=== PATIENT | female | born 1960 | race Caucasian/White ===

== ENCOUNTER 2021-04-17 13:30 | Inpatient (IN) | payer OTHER, SELFPAY ==
[2021-04-17] VITALS (48 sets, daily range): BP systolic 99–139; BP diastolic 61–86; PULSE 74–105; RESP 14–35; TEMP 37.2–37.7; O2SAT 83–100
--- NOTE | 2021-04-17 15:04 | XRR_ITS ---
PROCEDURE INFORMATION: Exam: XR Chest Exam date and time: 04/17/2021 3:04 PM Age: 60 years old Clinical indication: Shortness of breath; Patient HX: Covid+ w worsening SOB; Additional info: SOB, covid + TECHNIQUE: Imaging protocol: XR of the chest. Views: 1 view. COMPARISON: No relevant prior studies available. FINDINGS: Lungs: Patchy ground-glass opacities in the lung bases and right mid lung. Pleural spaces: Unremarkable. No pleural effusion. No pneumothorax. Heart/Mediastinum: Unremarkable. No cardiomegaly. Bones/joints: Unremarkable. Soft tissues: Elevation of the left diaphragm versus diaphragmatic hernia. Gastrointestinal tract: Prominent gas-filled gastric fundus. XR/XR chest 1V portable [id number] IMPRESSION: 1. Ground-glass opacities are consistent with multilobar pneumonia.
--- NOTE | 2021-04-17 15:20 | NUR.SHIFT ---
Assumed care at 1520.
--- NOTE | 2021-04-17 15:21 | W.ED.COVID ---
HPI - COVID General: Chief Complaint: Shortness of Breath/Dyspnea Stated Complaint: COVID +; NAUSEA Time Seen by Provider: 04/17/21 14:27 Source: patient Mode of arrival: EMS Limitations: no limitations Triage information: Has fever, cough or shortness of breath. Exposure to COVID + person last 14 days History of Present Illness: HPI Narrative: Patient symptoms started 12 days ago with cough, fever, congestion, body aches. She was tested 5 days ago and tested positive for COVID-19. She states that she has continued to feel worse with worsening shortness of breath. Because of these she presents to the emergency department to be evaluated MD complaint: known COVID positive Prior covid testing: yes, results known COVID 19 common symptoms: positive fever(s), chills, cough, dyspnea, fatigue, body aches, headache(s), nasal congestion and nausea; negative vomiting or diarrhea COVID 19 other sytmptoms: positive lethargy; negative chest pain, pleuritic pain, requiring oxygen, requiring more oxygen, respiratory distress, cyanosis, confusion or new neurological complaints Onset (ago): day(s) (12) Severity: moderate Pertinent comorbid conditions: diabetes, hypertension and obesity Treatment prior to arrival: acetaminophen COVID Results: SARS-CoV-2 Antigen (Rapid) Positive (Negative) H 04/17/21 23:50 04/17/21 Review of Systems General: Reports: 10 or more systems reviewed and unremarkable except in HPI and below Const: Reports: fever(s), chills, body aches and fatigue ENMT: Reports: nasal congestion Card: Denies: chest pain Resp: Reports: dyspnea GI: Reports: nausea; Denies: vomiting or diarrhea Neuro: Reports: headache(s); Denies: confusion Physical Exam Const: COMMON NORMALS: no acute distress, average body habitus, patient oriented x3, no limitations, healthy appearing and well nourished GENERAL APPEARANCE: lethargic ORIENTATION/CONSCIOUSNESS: Yes lethargic HENMT: COMMON NORMALS: normocephalic, atraumatic and moist oral mucous membranes HEAD & SCALP: normocephalic and atraumatic Neck/C-Spine: COMMON NORMALS: no meningeal signs and no JVD Resp: COMMON NORMALS: normal respiratory effort, No retractions, No use of accessory muscles, clear to auscultation bilaterally and percussion normal AUSCULTATION: clear to auscultation bilaterally PERCUSSION: percussion normal Cardio: COMMON NORMALS: no JVD, regular rate, regular rhythm, S1 normal heart sound present, S2 normal heart sound present, No gallops present (Cardio), No clicks present (Cardio), No murmurs present (Cardio), No rub (Cardio) and Peripheral pulses 2+ throughout RATE: regular rate RHYTHM: regular rhythm HEART SOUNDS: S1 normal heart sound present and S2 normal heart sound present PERIPHERAL PULSES: Peripheral pulses 2+ throughout GI: COMMON NORMALS: Normal to inspection, nondistended, normoactive bowel sounds present, Soft to palpation, non-tender, No hepatosplenomegaly present, no masses and no bruits PALPATION: Yes Soft to palpation and Yes No hepatosplenomegaly present Extremity: COMMON NORMALS: normal to inspection, full ROM, capillary refill normal, no calf tenderness and no pedal edema Neuro: COMMON NORMALS: patient oriented x3 SENSORIUM/ORIENTATION: Yes lethargic MENINGEAL SIGNS: Yes no meningeal signs Skin: COMMON NORMALS: no rashes or lesions noted, no wounds, turgor normal, no jaundice, no petechiae and no mottling GENERAL SKIN EXAM: no rashes or lesions noted and turgor normal Course Consultations: Consultation #1: Discussed the patient with Dr. Mathews, hospitalist and he kindly accepted the patient to his service. Time: 17:50 Vital Signs: Vital signs: Vital Signs Temperature 98.9 F 04/17/21 23:45 Pulse Rate 88 04/17/21 23:45 Respiratory Rate 26 H 04/17/21 23:45 Blood Pressure 113/61 04/17/21 23:45 Pulse Oximetry 90 04/17/21 23:45 MDM - COVID MDM Narrative: Medical decision making narrative: 60-year-old female patient who presents to the emergency department with fever, body aches, severe shortness of breath, weakness, and several syncopal episodes. She recently tested positive for COVID-19 and evaluation in the emergency department shows she has increased inflammatory markers. She was also hypoxic in the emergency department. She was requiring oxygen supplementation. She is very lethargic and is being admitted to the hospitalist service for further evaluation and management. Medical Records: Attestation: I reviewed the patient's medical records. Lab Data: Attestation: I reviewed the patient's lab results. Labs: Lab Results 04/17/21 04/17/21 04/17/21 Range/Units 15:42 15:42 15:42 WBC 3.6 L (4.0-10.0) 10^3/ uL RBC 4.54 (4.1-5.3) 10^6/u L Hgb 14.2 (11.5-15.3) g/dL Hct 42.6 (37.0-47.0) % MCV 93.8 (81-99) fL MCH 31.3 (28.0-34.0) pg MCHC 33.3 (30.0-36.0) g/dL RDW 12.6 (12.1-15.1) % Plt Count 216 (130-400) 10^3/c mm MPV 9.6 (7.4-10.4) fL Neut % (Auto) 71.1 % Lymph % (Auto) 24.7 % [place] % (Auto) 2.5 % Eos % (Auto) 0.0 % Baso % (Auto) 0.3 % Neut # (Auto) 2.59 (1.8-7.7) 10^3/u L Lymph # (Auto) 0.9 (0.8-4.8) 10^3/u L [place] # (Auto) 0.1 L (0.2-0.9) 10^3/u L Eos # (Auto) 0.0 (0.0-0.8) 10^3/u L Baso # (Auto) 0.0 (0.0-0.1) 10^3/u L Nucleated RBC % (a uto) 0 % Nucleated RBCs # 0.0 /100WBC D-Dimer 0.47 (0-0.59) ug/mIFE U Specimen Type Sample Site ABG pH (7.35-7.45) ABG pCO2 (35-45) mmHg ABG pO2 (80.0-100.0) mmH g ABG HCO3 (22-26) mmol/L ABG Base Excess (-2.0-2.0) mmol/ L [place] Test Hematocrit (37-47) % O2 Delivery Device O2 Liters/Min % FiO2 % Health Services Director ID Sodium 134 L (136-145) mmol/L Potassium 3.7 (3.5-5.1) mmol/L Chloride 94 L (98-107) mmol/L Carbon Dioxide 27 (22-29) mmol/L Anion Gap 16.7 (5-19) BUN 15 (8-23) mg/dL Creatinine 0.8 (0.5-0.9) mg/dL GFR Calculation 72.7 L (90-130) mL/min Glucose 138 H (65-115) mg/dL Calculated Osmolal ity 281 L (285-295) mOsm/k g Lactic Acid (0.5-2.2) mmol/L Calcium 8.2 L (8.5-10.5) mg/dL Ferritin 1250 H (15-150) ng/mL Total Bilirubin 0.3 (0.15-1.2) mg/dL AST 45 H (0-32) U/L ALT 30 (0-33) U/L Alkaline Phosphata se 72 (35-105) IU/L Creatine Kinase 101 (26-192) U/L C-Reactive Protein 53.3 H (0.0-4.9) mg/L Total Protein 7.8 (6.6-8.7) g/dL Albumin 3.7 (3.5-5.2) g/dL Globulin 4.1 (1.3-4.6) g/dL Procalcitonin 0.12 (0-0.5) ng/mL 04/17/21 04/17/21 Range/Units 15:42 17:33 WBC (4.0-10.0) 10^3/ uL RBC (4.1-5.3) 10^6/u L Hgb (11.5-15.3) g/dL Hct (37.0-47.0) % MCV (81-99) fL MCH (28.0-34.0) pg MCHC (30.0-36.0) g/dL RDW (12.1-15.1) % Plt Count (130-400) 10^3/c mm MPV (7.4-10.4) fL Neut % (Auto) % Lymph % (Auto) % [place] % (Auto) % Eos % (Auto) % Baso % (Auto) % Neut # (Auto) (1.8-7.7) 10^3/u L Lymph # (Auto) (0.8-4.8) 10^3/u L [place] # (Auto) (0.2-0.9) 10^3/u L Eos # (Auto) (0.0-0.8) 10^3/u L Baso # (Auto) (0.0-0.1) 10^3/u L Nucleated RBC % (a uto) % Nucleated RBCs # /100WBC D-Dimer (0-0.59) ug/mIFE U Specimen Type Arterial Sample Site Brachial, left ABG pH 7.47 H (7.35-7.45) ABG pCO2 34.6 L (35-45) mmHg ABG pO2 50.9 L (80.0-100.0) mmH g ABG HCO3 25.0 (22-26) mmol/L ABG Base Excess 1.6 (-2.0-2.0) mmol/ L [place] Test N/a Hematocrit 43.3 (37-47) % O2 Delivery Device Nc O2 Liters/Min 2.5 % FiO2 30.0 % Health Services Director ID Amh Sodium (136-145) mmol/L Potassium (3.5-5.1) mmol/L Chloride (98-107) mmol/L Carbon Dioxide (22-29) mmol/L Anion Gap (5-19) BUN (8-23) mg/dL Creatinine (0.5-0.9) mg/dL GFR Calculation (90-130) mL/min Glucose (65-115) mg/dL Calculated Osmolal ity (285-295) mOsm/k g Lactic Acid 2.2 (0.5-2.2) mmol/L Calcium (8.5-10.5) mg/dL Ferritin (15-150) ng/mL Total Bilirubin (0.15-1.2) mg/dL AST (0-32) U/L ALT (0-33) U/L Alkaline Phosphata se (35-105) IU/L Creatine Kinase (26-192) U/L C-Reactive Protein (0.0-4.9) mg/L Total Protein (6.6-8.7) g/dL Albumin (3.5-5.2) g/dL Globulin (1.3-4.6) g/dL Procalcitonin (0-0.5) ng/mL Imaging Data: CXR: Attestation: I personally reviewed and interpreted this imaging study as follows: Radiologist's impression: Abdi [address] [id number] ReportSigned Patient: Bong Arellanoit #: [id number]: 8Acct#:[id number]/Sex: 60 / FADM Date: 04/17/21Loc: ERRoom/Bed:Attending Dr: Ordering Provider/Ordering MD: Ewa Garcia MD, [facility] Date of Service: 04/17/21 Procedure(s): XR chest 1V portable [id number] Accession Number(s): [id number] Report Number: [id number] PROCEDURE INFORMATION: Exam: XR Chest Exam date and time: 04/17/2021 3:04 PM Age: 60 years old Clinical indication: Shortness of breath; Patient HX: Covid+ w worsening SOB; Additional info: SOB, covid + TECHNIQUE: Imaging protocol: XR of the chest. Views: 1 view. COMPARISON: No relevant prior studies available. FINDINGS: Lungs: Patchy ground-glass opacities in the lung bases and right mid lung. Pleural spaces: Unremarkable. No pleural effusion. No pneumothorax. Heart/Mediastinum: Unremarkable. No cardiomegaly. Bones/joints: Unremarkable. Soft tissues: Elevation of the left diaphragm versus diaphragmatic hernia. Gastrointestinal tract: Prominent gas-filled gastric fundus. XR/XR chest 1V portable [id number] IMPRESSION: 1. Ground-glass opacities are consistent with multilobar pneumonia. 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
[2021-04-17 15:49] LABS: Basophils % 0.3 %; Hematocrit 42.6 % (37.0-47.0); Hemoglobin 14.2 g/dL (11.5-15.3); Lymphocytes # 0.9 10^3/uL (0.8-4.8); Lymphocytes % 24.7 %; Mean Corpuscular HGB Conc 33.3 g/dL (30.0-36.0); Mean Corpuscular Hemoglobin 31.3 pg (28.0-34.0); Mean Corpuscular Volume 93.8 fL (81-99); Mean Platelet Volume 9.6 fL (7.4-10.4); Monocytes # 0.1 10^3/uL (0.2-0.9); Monocytes % 2.5 %; Neutrophils # 2.59 10^3/uL (1.8-7.7); Neutrophils % 71.1 %; Nucleated Red Blood Cells % 0 %; Platelet Count 216 10^3/cmm (130-400); Red Blood Count 4.54 10^6/uL (4.1-5.3); Red Cell Distribution Width 12.6 % (12.1-15.1); White Blood Count 3.6 10^3/uL (4.0-10.0)
[2021-04-17 16:02] LABS: D Dimer 0.47 ug/mIFEU (0-0.59)
[2021-04-17 16:10] LABS: Lactic Sepsis W/Reflex 2.2 mmol/L (0.5-2.2)
[2021-04-17 16:11] LABS: Alanine Aminotransferase 30 U/L (0-33); Albumin Level 3.7 g/dL (3.5-5.2); Alkaline Phosphatase 72 IU/L (35-105); Anion Gap 16.7 (5-19); Aspartate Amino Transferase 45 U/L (0-32); Blood Urea Nitrogen 15 mg/dL (8-23); C Reactive Protein 53.3 mg/L (0.0-4.9); Calcium 8.2 mg/dL (8.5-10.5); Carbon Dioxide 27 mmol/L (22-29); Chloride 94 mmol/L (98-107); Creatine Phosphokinase 101 U/L (26-192); Globulin 4.1 g/dL (1.3-4.6); Glomerular Filtration Rate 72.7 mL/min (90-130); Glucose 138 mg/dL (65-115); Osmolality Calculated 281 mOsm/kg (285-295); Potassium 3.7 mmol/L (3.5-5.1); Sodium 134 mmol/L (136-145); Total Bilirubin 0.3 mg/dL (0.15-1.2); Total Protein 7.8 g/dL (6.6-8.7)
[2021-04-17 16:17] LABS: Procalcitonin 0.12 ng/mL (0-0.5)
[2021-04-17 16:23] LABS: Ferritin 1250 ng/mL (15-150)
--- NOTE | 2021-04-17 16:23 | PC.PHAR ---
PT STATES SHE TAKES CARE OF HER OWN MEDICATIONS-PT STATES SHE HASNT TAKEN ANY OF HER MEDS IN 15 DAYS BESIDES ASPIRIN AND TYLENOL-CALLED [facility] THEY STATES THEY HAVENT SENT OUT MEDICATION SINCE SEP 2020 AND IN JUL 2020-PT STATES SHE TAKES THE MEDICATIONS ENTERED-CALLED [facility] STATES THE PT HAS NO ENROLLMENT WITH THEM SO THEY STATE THEY NEVER SENT HER MEDS STATES THEY LOOKED IN THE NATIONAL DATABASE AND DIDNT SEE WHERE SHE HAD ENROLLMENT-NOTES ARE MADE IN THE PHARMACY COMMENTS
[2021-04-17 16:33] LABS: Slide Review Slide Review Perform
[2021-04-17 17:33] LABS: Reflex Lactate Order REFLEX LACTIC ORDERD
[2021-04-17 17:45] LABS: ABG PCO2 34.6 mmHg (35-45); ABG PH Result 7.47 (7.35-7.45); Arterial Blood Gas Hematocrit 43.3 % (37-47); Base Excess ABG 1.6 mmol/L (-2.0-2.0); Blood Gas LPM 2.5 %; Blood Gas Operator Identificat AMH; Blood Gas Sample Site Brachial, left; Blood Gas Sample Type Arterial; Oxygen Device NC; PO2 ABG 50.9 mmHg (80.0-100.0)
[2021-04-17] MEDS: dexamethasone 4 mg/mL INJ 6 MG IVP (18:07)
[2021-04-17] MEDS: remdesivir 200 MG in sodium chloride 0.9% (100 ml) 100 ML 100 MG IV (18:12)
--- NOTE | 2021-04-17 18:40 | P.HP_ITS ---
Providers/Chief Complaint Admitting Physician: Go Mathews MD Chief Complaint: COVID +; NAUSEA History of Present Illness Kayli Arellano is a 60 year old female with past medical history of hypertension, diabetes, obesity , sleep apnea, gout, was admitted with chief complaint of worsening, generalized weakness, , chills, generalized body pain, predominantly back pain, lethargy, nausea, vomiting, cough, shortness of breath, on and off fever at home, she was diagnosed with Covid last , multiple family members are sick with Covid, recently her mother at home because of Covid. Upon arrival in the ER she was worked up for above mentioned complaint. Imaging studies: X-ray chest: Patchy ground-glass opacities in the lung bases and right mid lung. ABG: pH: 7.47, PCO2:34, PO2:50.9 FiO2:30% D-dimer is pending, ferritin:1250, CRP:53.3 , procalcitonin:0. 12 Review of Systems Card: Denies: palpitations Resp: Denies: pain on inspiration GI: Denies: abdominal pain or constipation : Denies: flank pain Musc: Denies: back pain, extremity pain or extremity swelling Neuro: Denies: difficulty walking or confusion Medications/Allergies Home Medications Medication Instructions Recorded Confirmed Last Taken Type allopurinol 100 mg tablet 100 mg PO DAILY 06/27/20 04/17/21 Unknown History aspirin 81 mg tablet,delayed 81 mg PO QAM 06/27/20 04/17/21 04/17/21 History release losartan 25 mg tablet 25 mg PO DAILY 06/27/20 04/17/21 Unknown History acetaminophen [Tylenol Extra 1,000 mg PO Q4H PRN 04/17/21 04/17/21 04/17/21 08:00 History Strength] duloxetine 30 mg PO BID 04/17/21 04/17/21 Unknown History gabapentin 400 mg PO BID 04/17/21 04/17/21 Unknown History metformin 500 mg PO DAILY 04/17/21 04/17/21 Unknown History pramipexole See Rx Instructions .ROUTE .COMPLEX 04/17/21 04/17/21 Unknown History Allergies Allergy/AdvReac Type Severity Reaction Status Date / Time Sulfa (Sulfonamide Allergy rash Verified 04/17/21 16:11 Antibiotics) Vitals/I&O/Wt Last Vital Signs Temp 99.9 F H 04/17/21 14:41 Pulse 80 04/17/21 17:00 Resp 18 04/17/21 17:00 BP 136/86 04/17/21 17:00 Pulse Ox 100 04/17/21 17:00 Physical Exam Const: COMMON NORMALS: patient oriented x3 HENMT: COMMON NORMALS: normocephalic and atraumatic HEAD & SCALP: normocephalic and atraumatic Resp: EFFORT & INSPECTION: Yes symmetric chest movement OTHER: Bilateral coarse breath sounds, bilateral crackles present in both the lung tinoco. Cardio: COMMON NORMALS: regular rate, regular rhythm, S1 normal heart sound present, S2 normal heart sound present, No gallops present (Cardio), No murmurs present (Cardio), No rub (Cardio) and Peripheral pulses 2+ throughout RATE: regular rate RHYTHM: regular rhythm HEART SOUNDS: S1 normal heart sound present and S2 normal heart sound present PERIPHERAL PULSES: Peripheral pulses 2+ throughout GI: COMMON NORMALS: Normal to inspection, nondistended, normoactive bowel sounds present, Soft to palpation, non-tender, No hepatosplenomegaly present and no masses AUSCULTATION: Yes normoactive bowel sounds PALPATION: Yes Soft to palpation and Yes No hepatosplenomegaly present RECTAL EXAM: deferred Extremity: COMMON NORMALS: no clubbing, cyanosis or edema and no pedal edema Neuro: COMMON NORMALS: patient oriented x3 Data : 04/17/21 15:42 04/17/21 15:42 A&P Assessment and plan (1) Pneumonia due to COVID-19 virus: Acute hypoxic respiratory failure secondary to Covid pneumonia empirically covered for possible superimposed bacterial PNA Monitor Xray chest D-dimer : ESR; CRP: Ferittin: Fibrinigen: Procalcitonin : Remdesivir 5 Day course Dexamethasone 6 mg I.V Daily Lovenox 40 mg sc Daily Ceftriaxone 1 gm q24 h daily Azithromycin Advair inhalation Albuterol inhaler Ascorbic acid po Zinc gluconate po Incentive Spirometry flutter valve Supplemental oxygen Status: Acute (2) Hypoxia: Status: Acute (3) Hypertension: Losartan 25 mg p.o. daily Status: Acute (4) Diabetes: Low-dose sliding scale insulin Monitor fingerstick glucose Carbohydrate consistent diet Status: Acute (5) Obesity: Status: Acute (6) Gout: Allopurinol 100 mg p.o. daily Status: Acute (7) Leukopenia: Likely part of viral syndrome. Monitor CBC Status: Acute Additional A&P Information CODE STATUS: Full code DVT prophylaxis: On Lovenox Disposition: Discharge to home Attestations Medical Necessity Statement*: Patient is to be in hospital for management of Covid pneumonia anticipated length of stay greater than 2 midnight. 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
[2021-04-17] MEDS: albuterol 8 gm MDI 2 PUFF INHALATION (21:12)
[2021-04-17] MEDS: enoxaparin 40 mg/0.4 mL Syringe SUBCUT (21:41)
[2021-04-17] MEDS: oxyCODONE-APAP 5-325 mg Tablet 1 TAB PO (21:41)
[2021-04-17] MEDS: cefTRIAXone 1,000 MG in sodium chloride 0.9% (plus) 50 ML 100 MG IV (21:42)
[2021-04-17] MEDS: guaiFENesin-dextromethorphan UDC 10 mL PO (21:42)
[2021-04-17] MEDS: FUROsemide 10 mg/mL SDV 4mL 40 MG IVP (21:43)
[2021-04-17] MEDS: azithromycin 500 MG in sodium chloride 0.9% 250 ML 250 MG IV (21:44)
[2021-04-18] VITALS (61 sets, daily range): BP systolic 97–132; BP diastolic 56–73; PULSE 69–94; RESP 13–33; TEMP 36.5–37.2; O2SAT 86–97
[2021-04-18 00:04] LABS: SARS Covid-2 Antigen Positive (Negative)
[2021-04-18 00:04] LABS: Influenza A by IFA Negative (Negative); Influenza B by IFA Negative (Negative)
[2021-04-18] MEDS: ondansetron 2 mg/ML SDV 2 mL 4 MG IVP ×2 (03:42→18:25)
[2021-04-18] MEDS: aspirin 81 mg EC Tablet PO (04:54)
--- NOTE | 2021-04-18 07:58 | PM.PN ---
Subjective Subjective: Interval history: During the day, the patient was on 6L02. She became confused and took her O2 off, and was down to 79%. Shortly afterwards she required 11 L high flow nasal cannula to increase her O2 sats to 92%. At the time she was seen, she denied any chest pain palpitations, but did endorse that she felt confused and dyspneic. She also endorsed feeling thirsty mild poor p.o. intake, and subsequent nausea whenever she attempted to eat anything. Vitals/I&O/Wt Last Vital Signs Temp 99 F 04/18/21 03:39 Pulse 75 04/18/21 03:39 Resp 24 H 04/18/21 03:39 BP 97/56 04/18/21 03:39 Pulse Ox 91 04/18/21 03:39 04/17/21 04/18/21 04/18/21 22:59 06:59 14:59 Intake Total 150 / 150 310 / 460 Output Total 300 / 300 700 / 1000 Balance -150 / -150 -390 / -540 Physical Exam Const: GENERAL APPEARANCE: disheveled and ill appearing NUTRITIONAL APPEARANCE: overweight ORIENTATION/CONSCIOUSNESS: Yes awake, Yes oriented to person, Yes oriented to place and Yes oriented to time HENMT: COMMON NORMALS: normocephalic, atraumatic, external ears normal and Normal external nose present HEAD & SCALP: normocephalic and atraumatic FACE & SINUS: normal facial exam NOSE: Normal external nose present EXTERNAL EAR: Yes external ears normal MOUTH: Normal oral and palatal mucosa present Eye: COMMON NORMALS: Equal, round and reactive pupils present and conjunctivae normal CONJUNCTIVA: Yes conjunctivae normal PUPIL: Yes Equal, round and reactive pupils present EOM: No EOM abnormal Neck/C-Spine: COMMON NORMALS: Thyroid normal GENERAL: Yes trachea midline, No anterior neck swelling and No lymphadenopathy THYROID: Thyroid normal Resp: EFFORT & INSPECTION: Yes able to speak in complete sentences AUSCULTATION: crackles Laterality: right (RML), no wheezes and diminished lung sounds on the right in the lower lung tinoco (RLL) and on the left (LML & LLL) Cardio: COMMON NORMALS: regular rate and regular rhythm RATE: regular rate RHYTHM: regular rhythm HEART SOUNDS: no click, no gallops, no murmurs and no rubs Extremity: COMMON NORMALS: no clubbing, cyanosis or edema Neuro: SENSORIUM/ORIENTATION: Yes oriented to person, Yes oriented to place and Yes oriented to time CRANIAL NERVES: Yes CN normal except as noted SPEECH: Other neuro speech findings (slow) GAIT: Yes Unable to assess gait SENSORY EXAM: Yes Normal double simultaneous stimulation for sensation MOTOR EXAM: 5/5 motor strength present throughout Psych: SPEECH: Yes slow MOOD & AFFECT: Yes sad Skin: COMMON NORMALS: no rashes or lesions noted GENERAL SKIN EXAM: no rashes or lesions noted Data : 04/18/21 09:30 04/18/21 09:30 A&P Assessment and plan (1) Acute respiratory failure with hypoxia: Status: Acute (2) Pneumonia due to COVID-19 virus: Status: Acute (3) Diabetes: Status: Acute (4) Hypertension: Status: Acute (5) Gout: Status: Acute (6) Obesity: Status: Acute Ms. Arellano is a 60yo woman w/ HTN, non-IDDM2, Gout, who was diagnosed with Covid on 04/14/2021 and presented to the ED on 04/17/2021 with complaints of worsening generalized weakness, chills, myalgias, nausea, vomiting, cough, dyspnea, and intermittent fevers. Per documentation, the patient has multiple family members who were found to be sick with Covid, and her mother at home because of Covid. Her CXR in the ED showed groundglass opacities consistent with multilobar pneumonia. She was admitted for acute hypoxic respiratory failure caused by multilobar viral pneumonia COVID-19 infection. #Acute hypoxic respiratory failure # Multilobar viral pneumonia # COVID-19 infection - Continue Remdesivir, Dexamethasone, Ceftriaxone/Azithromycin, Zinc, Vit D po, famotidine. Monitor inflammatory markers. Titrate O2. #Hyponatremia - Multifactorial: Pre-renal vs SIADH vs diuretics? - F/u urine studies. # non-IDDM2 - Accuchecks ordered. # HTN - held losartan # Gout? - On allopurinol DVT ppx: Lovenox. Attestations Medical Necessity Statement*: The patient requires continuous hospitalization at this time due to acute hypoxic respiratory failure and multilobar pneumonia due to COVID-19 infection and increasing O2 requirements. 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
[2021-04-18] MEDS: albuterol 8 gm MDI 2 PUFF INHALATION (08:09)
[2021-04-18] MEDS: duloxetine 30 mg Capsule PO ×2 (09:43→18:11)
[2021-04-18] MEDS: zinc gluconate 50 mg Tablet PO (09:43)
[2021-04-18] MEDS: cholecalciferol (vitamin D3) 1,000 unit Tablet 2000 UNIT PO (09:44)
[2021-04-18] MEDS: ascorbic acid 500 mg Tablet PO ×2 (09:44→18:11)
[2021-04-18] MEDS: allopurinol 100 mg Tablet PO (09:45)
[2021-04-18] MEDS: famotidine 20 mg Tablet PO ×2 (09:46→18:11)
[2021-04-18] MEDS: gabapentin 400 mg Capsule PO ×2 (09:46→18:11)
[2021-04-18] MEDS: losartan 50 mg Tablet 25 MG PO (09:47)
[2021-04-18 10:08] LABS: Basophils % 0.2 %; Hematocrit 40.2 % (37.0-47.0); Hemoglobin 13.4 g/dL (11.5-15.3); Lymphocytes # 1.4 10^3/uL (0.8-4.8); Lymphocytes % 27.6 %; Mean Corpuscular HGB Conc 33.3 g/dL (30.0-36.0); Mean Corpuscular Hemoglobin 31.5 pg (28.0-34.0); Mean Corpuscular Volume 94.6 fL (81-99); Mean Platelet Volume 9.6 fL (7.4-10.4); Monocytes # 0.2 10^3/uL (0.2-0.9); Monocytes % 3.1 %; Neutrophils # 3.33 10^3/uL (1.8-7.7); Neutrophils % 67.9 %; Nucleated Red Blood Cells % 0 %; Platelet Count 261 10^3/cmm (130-400); Positive M 1; Red Blood Count 4.25 10^6/uL (4.1-5.3); Red Cell Distribution Width 12.7 % (12.1-15.1); White Blood Count 4.9 10^3/uL (4.0-10.0)
[2021-04-18 10:28] LABS: Fibrinogen 537 mg/dL (174-498)
[2021-04-18 10:31] LABS: Slide Review Slide Review Perform
[2021-04-18 10:32] LABS: D Dimer 0.53 ug/mIFEU (0-0.59)
[2021-04-18 10:42] LABS: NT Pro B Type Natriuretic Pept 344 pg/mL (0-125); Procalcitonin 0.28 ng/mL (0-0.5)
--- NOTE | 2021-04-18 10:51 | PC.NURSE ---
Call placed to to give update. Questions answered about medications, care plan, and current O2 requirements. Teach back performed. was very grateful and pleasant. This keno writer / runner contacting CSU inspector assembly now to request that calls from this family member be transferred to primary nurse caring for patient as oppose to patients room due to patients inability to talk for long periods of time. Patient and agree that this is the communication that suites them best at present time. : Lane Daniels [phone].
[2021-04-18 10:55] LABS: Alanine Aminotransferase 30 U/L (0-33); Albumin Level 3.3 g/dL (3.5-5.2); Alkaline Phosphatase 63 IU/L (35-105); Anion Gap 17.7 (5-19); Aspartate Amino Transferase 51 U/L (0-32); Blood Urea Nitrogen 16 mg/dL (8-23); C Reactive Protein 97.8 mg/L (0.0-4.9); Calcium 7.7 mg/dL (8.5-10.5); Carbon Dioxide 25 mmol/L (22-29); Chloride 93 mmol/L (98-107); Globulin 3.9 g/dL (1.3-4.6); Glomerular Filtration Rate 63.4 mL/min (90-130); Glucose 145 mg/dL (65-115); Lactate Dehydrogenase 466 U/L (135-214); Osmolality Calculated 278 mOsm/kg (285-295); Potassium 3.7 mmol/L (3.5-5.1); Sodium 132 mmol/L (136-145); Total Bilirubin 0.2 mg/dL (0.15-1.2); Total Protein 7.2 g/dL (6.6-8.7)
[2021-04-18 11:10] LABS: Ferritin 1403 ng/mL (15-150)
--- NOTE | 2021-04-18 15:22 | PC.NURSE ---
patient received from HARLEEN Clark in CSU at 1500, patient sitting in chair at this time, 11L o2 high flow cannula, call light within reach.
--- NOTE | 2021-04-18 15:32 | PC.NURSE ---
Pt transferred to room 263-1 med-surg from [facility]. Pt A&Ox3, resp even and non-labored no distress noted. O2 at 11 Lpm via nc. Pt had no c/o pain or discomfort at the present time of transfer. Report given to Cayla CANSECO.
[2021-04-18] MEDS: albuterol 8 gm MDI 4 PUFF INHALATION ×2 (15:39→20:33)
[2021-04-18 17:39] LABS: Glucose Point of Care 155 mg/dL (70-110)
[2021-04-18] MEDS: remdesivir 100 MG in sodium chloride 0.9% (100 ml) 100 ML IV (18:12)
[2021-04-18] MEDS: dexamethasone 4 mg/mL INJ 6 MG IVP (18:12)
[2021-04-18 20:32] LABS: Glucose Point of Care 217 mg/dL (70-110)
[2021-04-18 21:24] LABS: Glucose 197 mg/dL (65-115)
[2021-04-18] MEDS: enoxaparin 40 mg/0.4 mL Syringe SUBCUT (23:12)
[2021-04-18] MEDS: cefTRIAXone 1,000 MG in sodium chloride 0.9% (plus) 100 ML 100 MG IV (23:19)
[2021-04-19] VITALS (18 sets, daily range): BP systolic 99–126; BP diastolic 62–77; PULSE 57–69; RESP 16–32; TEMP 36.6–36.7; O2SAT 86–93
[2021-04-19] MEDS: azithromycin 500 MG in sodium chloride 0.9% 250 ML 250 MG IV ×2 (00:49→23:03)
[2021-04-19] MEDS: aspirin 81 mg EC Tablet PO (06:01)
[2021-04-19 06:17] LABS: Glucose Point of Care 198 mg/dL (70-110)
[2021-04-19 07:13] LABS: Basophils % 0.3 %; Fibrinogen 518 mg/dL (174-498); Hematocrit 39.1 % (37.0-47.0); Hemoglobin 13.1 g/dL (11.5-15.3); Lymphocytes # 1.5 10^3/uL (0.8-4.8); Lymphocytes % 25.5 %; Mean Corpuscular HGB Conc 33.5 g/dL (30.0-36.0); Mean Corpuscular Hemoglobin 31.8 pg (28.0-34.0); Mean Corpuscular Volume 94.9 fL (81-99); Mean Platelet Volume 9.2 fL (7.4-10.4); Monocytes # 0.3 10^3/uL (0.2-0.9); Monocytes % 5.2 %; Neutrophils # 3.93 10^3/uL (1.8-7.7); Neutrophils % 68.3 %; Nucleated Red Blood Cells % 0 %; Platelet Count 260 10^3/cmm (130-400); Red Blood Count 4.12 10^6/uL (4.1-5.3); Red Cell Distribution Width 12.6 % (12.1-15.1); White Blood Count 5.8 10^3/uL (4.0-10.0)
[2021-04-19 07:15] LABS: D Dimer 0.72 ug/mIFEU (0-0.59)
[2021-04-19 07:20] LABS: Alanine Aminotransferase 27 U/L (0-33); Alkaline Phosphatase 60 IU/L (35-105); Anion Gap 16.1 (5-19); Aspartate Amino Transferase 52 U/L (0-32); Blood Urea Nitrogen 23 mg/dL (8-23); C Reactive Protein 82.7 mg/L (0.0-4.9); Calcium 7.9 mg/dL (8.5-10.5); Carbon Dioxide 24 mmol/L (22-29); Chloride 93 mmol/L (98-107); Globulin 3.6 g/dL (1.3-4.6); Glomerular Filtration Rate 72.7 mL/min (90-130); Glucose 186 mg/dL (65-115); Osmolality Calculated 277 mOsm/kg (285-295); Potassium 4.1 mmol/L (3.5-5.1); Sodium 129 mmol/L (136-145); Total Bilirubin 0.2 mg/dL (0.15-1.2); Total Protein 6.6 g/dL (6.6-8.7)
[2021-04-19 07:35] LABS: Phosphorus 3.3 mg/dL (2.5-4.5)
[2021-04-19 07:45] LABS: Ferritin 1612 ng/mL (15-150)
[2021-04-19 08:18] LABS: Slide Review Slide Review Perform
[2021-04-19] MEDS: albuterol 8 gm MDI 4 PUFF INHALATION (08:44)
[2021-04-19] MEDS: ascorbic acid 500 mg Tablet PO ×2 (09:40→17:20)
[2021-04-19] MEDS: zinc gluconate 50 mg Tablet PO (09:40)
[2021-04-19] MEDS: famotidine 20 mg Tablet PO ×2 (09:40→17:20)
[2021-04-19] MEDS: allopurinol 100 mg Tablet PO (09:40)
[2021-04-19] MEDS: cholecalciferol (vitamin D3) 1,000 unit Tablet 2000 UNIT PO (09:40)
[2021-04-19] MEDS: gabapentin 400 mg Capsule PO ×2 (09:40→17:20)
[2021-04-19] MEDS: duloxetine 30 mg Capsule PO ×2 (09:40→17:20)
[2021-04-19 11:08] LABS: Glucose Point of Care 160 mg/dL (70-110)
--- NOTE | 2021-04-19 12:31 | PM.PN ---
Subjective Subjective: Interval history: I was called and informed that the patient was hypoxic to the 80s on high flow nasal cannula, so she was switched to heated high flow O2. A CXR and ABG were ordered. Her CXR did not show any changes, but her ABG showed that she remained hypoxic. And per respiratory therapist, she has been around 88 to 89% O2 saturation. At the time patient was seen early in the afternoon, she was alert and oriented to person place and time. She states that she has not been eating or drinking for many days, because she feels nauseous anytime she attempts to eat. She requested for something such as Ensure and something to help her with the nausea prior to eating. She also continues to endorse shortness of breath. She now endorses chest pressure which she states has been going on for several days. She denies palpitations, dizziness, lightheadedness, abdominal pain. She requested for bath and something to comb her hair, because she did not bring her supplies from home, and stated that it might help her feel better Vitals/I&O/Wt Last Vital Signs Temp 98.1 F 04/19/21 11:16 Pulse 62 04/19/21 11:16 Resp 18 04/19/21 11:16 BP 99/66 04/19/21 11:16 Pulse Ox 87 L 04/19/21 11:16 04/18/21 04/19/21 04/19/21 22:59 06:59 14:59 Intake Total 960 / 960 590 / 1550 140 / 140 Output Total 300 / 650 50 / 700 Balance 660 / 310 540 / 850 140 / 140 Physical Exam Const: GENERAL APPEARANCE: disheveled and ill appearing NUTRITIONAL APPEARANCE: overweight ORIENTATION/CONSCIOUSNESS: Yes awake, Yes oriented to person, Yes oriented to place and Yes oriented to time HENMT: COMMON NORMALS: normocephalic, atraumatic, external ears normal and Normal external nose present HEAD & SCALP: normocephalic and atraumatic FACE & SINUS: normal facial exam NOSE: Normal external nose present EXTERNAL EAR: Yes external ears normal MOUTH: Normal oral and palatal mucosa present Eye: COMMON NORMALS: Equal, round and reactive pupils present and conjunctivae normal CONJUNCTIVA: Yes conjunctivae normal PUPIL: Yes Equal, round and reactive pupils present EOM: No EOM abnormal Neck/C-Spine: COMMON NORMALS: Thyroid normal GENERAL: Yes trachea midline, No anterior neck swelling and No lymphadenopathy THYROID: Thyroid normal Resp: EFFORT & INSPECTION: Yes able to speak in complete sentences AUSCULTATION: crackles Laterality: right (RML), no wheezes and diminished lung sounds on the right in the lower lung tinoco (RLL) and on the left (LML & LLL) Cardio: COMMON NORMALS: regular rate and regular rhythm RATE: regular rate RHYTHM: regular rhythm HEART SOUNDS: no click, no gallops, no murmurs and no rubs Extremity: COMMON NORMALS: no clubbing, cyanosis or edema Neuro: SENSORIUM/ORIENTATION: Yes oriented to person, Yes oriented to place and Yes oriented to time CRANIAL NERVES: Yes CN normal except as noted SPEECH: Other neuro speech findings (slow) GAIT: Yes Unable to assess gait SENSORY EXAM: Yes Normal double simultaneous stimulation for sensation MOTOR EXAM: 5/5 motor strength present throughout Psych: SPEECH: Yes slow MOOD & AFFECT: Yes sad Skin: COMMON NORMALS: no rashes or lesions noted GENERAL SKIN EXAM: no rashes or lesions noted Data : 04/19/21 06:52 04/19/21 06:52 A&P Assessment and plan (1) Acute respiratory failure with hypoxia: Status: Acute (2) Pneumonia due to COVID-19 virus: Status: Acute (3) Diabetes: Status: Acute (4) Hypertension: Status: Acute (5) Gout: Status: Acute (6) Obesity: Status: Acute Ms. Arellano is a 60yo woman w/ HTN, non-IDDM2, Gout, who was diagnosed with Covid on 04/14/2021 and presented to the ED on 04/17/2021 with complaints of worsening generalized weakness, chills, myalgias, nausea, vomiting, cough, dyspnea, and intermittent fevers. Per documentation, the patient has multiple family members who were found to be sick with Covid, and her mother at home because of Covid. Her CXR in the ED showed groundglass opacities consistent with multilobar pneumonia. She was admitted for acute hypoxic respiratory failure caused by multilobar viral pneumonia COVID-19 infection. #Acute hypoxic respiratory failure # Multilobar viral pneumonia # COVID-19 infection - Continue Remdesivir, Dexamethasone, Ceftriaxone/Azithromycin, Zinc, Vit D po, famotidine. Monitor inflammatory markers. Titrate O2. - SHe may need to be moved to the ICU and intubated. #Hyponatremia - Multifactorial: Pre-renal vs SIADH vs diuretics given on admission in the setting of poor po intake - F/u urine studies. # non-IDDM2 - Accuchecks ordered. Continue to monitor. # HTN - held losartan # Gout? - On allopurinol, but a low dose. DVT ppx: Lovenox. Additional A&P Information CODE STATUS: Full code DVT prophylaxis: On Lovenox Disposition: Discharge to home Attestations Medical Necessity Statement*: Patient requires continued hospitalization due to acute hypoxic respiratory failure due to COVID-19 infection, multi lobar viral pneumonia, and worsening hyponatremia. Coding Level of Care Code Acute [place] [employer] T[facility] for [facility] Diagnoses Acute respiratory failure with hypoxia J96.01 Pneumonia due to COVID-19 virus U07.1; J12.82 Diabetes E11.9 Hypertension I10 Gout M10.9 Obesity E66.9
--- NOTE | 2021-04-19 12:32 | XRR_ITS ---
PROCEDURE INFORMATION: Exam: XR Chest Exam date and time: 04/19/2021 12:32 PM Age: 60 years old Clinical indication: Shortness of breath; Patient HX: History--covid positive; SOB; Additional info: Acute hypoxic respiratory failure TECHNIQUE: Imaging protocol: XR of the chest. Views: 1 view. COMPARISON: CR (CHEST, ) 04/17/2021 3:40 PM FINDINGS: Lungs: There are diffuse bilateral interstitial pulmonary infiltrates which may be due to an interstitial viral pneumonia. These are similar to previous radiograph. There is elevation of the left hemidiaphragm which is unchanged. Pleural spaces: Unremarkable. No pleural effusion. No pneumothorax. Heart/Mediastinum: Unremarkable. No cardiomegaly. Bones/joints: Unremarkable. XR/XR chest 1V portable [id number] IMPRESSION: Bilateral interstitial pulmonary infiltrates unchanged.
[2021-04-19 13:53] LABS: ABG PCO2 39.5 mmHg (35-45); ABG PH Result 7.44 (7.35-7.45); Alveolar-Arterial Oxygen Gradi 75.6 mmHg (5-10); Arterial Blood Gas Hematocrit 42.1 % (37-47); Base Excess ABG 2.7 mmol/L (-2.0-2.0); Blood Gas Allen Test Pos; Blood Gas Operator Identificat glc; Blood Gas Sample Site Radial, right; Blood Gas Sample Type Arterial; Carboxyhemoglobin 0.5 %THgb (0.4-20.1); HGB O2 Sat 85.9 % (95-100); Ionized Calcium Level - ABG 1.1 mmol/L (1.1-1.4); Methemoglobin 0.2 % (0.4-1.5); Oxygen Device HAG; Oxygen Saturation ABG 86.5; PO2 ABG 49.4 mmHg (80.0-100.0); Potassium Level - ABG 4.1 mmol/L (3.5-5.0); Total Hemoglobin 13.7 g/dL (12-16)
--- NOTE | 2021-04-19 15:44 | PC.NUTR ---
Nutrition consult: Received consult at this time per Dr. Stallworth. Written request for Ensure, will clarify to Glucermaki at this time due to dx DM and Consistent Carb diet order. Full assessment to be completed tomorrow 04/20/21.
[2021-04-19 17:15] LABS: Glucose Point of Care 170 mg/dL (70-110)
[2021-04-19] MEDS: remdesivir 100 MG in sodium chloride 0.9% (100 ml) 100 ML IV (17:17)
[2021-04-19] MEDS: dexamethasone 4 mg/mL INJ 6 MG IVP (17:22)
--- NOTE | 2021-04-19 18:29 | ECG_ITS ---
[facility] ED Test Date: 2021-04-19 Pat Name: Kayli Arellano Department: Room: 263 Gender: Female [employer]ger: : 1960 Requested By: Maria Teresa Velasquez Order Number: [id number] Reading MD: Shelby Haro M.D. Measurements Intervals [place] Rate: 67 P: 58 MT: 132 QRS: 70 QRSD: 97 T: 62 QT: 395 QTc: 419 Interpretive Statements SINUS RHYTHM LOW QRS VOLTAGE IN PRECORDIAL LEADS [QRS DEFLECTION < 1.0 mV IN CHEST LEADS] No previous ECG available for comparison Electronically Signed On 04-20-2021 21:50:41 CDT by Shelby Haro M.D. [email or web address]
--- NOTE | 2021-04-19 20:01 | PC.NURSE ---
REPORT CALLED TO ICU: REPORT CALLED TO JOSE RN IN ICU. PATIENT TO BE MOVED VIA BED WITH ALL BELONGINGS TO ICU BED 9. WAITING FOR ROOM TO BE CLEANED.
[2021-04-19 20:11] LABS: Troponin T (5th) Once 7 ng/L (0-10)
[2021-04-19] MEDS: enoxaparin 40 mg/0.4 mL Syringe SUBCUT (20:47)
[2021-04-19] MEDS: ondansetron 2 mg/ML SDV 2 mL 4 MG IVP (20:53)
--- NOTE | 2021-04-19 20:53 | PC.NURSE ---
TRANSFER: PATIENT TRANSPORTED VIA BED WITH ALL BELONGINGS TO ICU BED 9. PATIENT HANDED OFF TO CY [facility].
[2021-04-19] MEDS: cefTRIAXone 1,000 MG in sodium chloride 0.9% (plus) 100 ML 100 MG IV (22:32)
[2021-04-20] VITALS (60 sets, daily range): BP systolic 88–132; BP diastolic 51–97; PULSE 61–105; RESP 18–54; TEMP 36.6–37.2; O2SAT 77–92
--- NOTE | 2021-04-20 04:19 | PC.NURSE ---
Dr. Melendez notified of RR in the 30s and O2 sat on 100% bipap. Hcp to put in ativan order
[2021-04-20] MEDS: LORazepam 2 mg/mL INJ 1 mL 0.5 MG IVP (04:43)
[2021-04-20 05:28] LABS: Basophils % 0.2 %; Hematocrit 39.2 % (37.0-47.0); Hemoglobin 12.8 g/dL (11.5-15.3); Lymphocytes # 1.3 10^3/uL (0.8-4.8); Lymphocytes % 14.4 %; Mean Corpuscular HGB Conc 32.7 g/dL (30.0-36.0); Mean Corpuscular Hemoglobin 30.9 pg (28.0-34.0); Mean Corpuscular Volume 94.7 fL (81-99); Mean Platelet Volume 9.5 fL (7.4-10.4); Monocytes # 0.3 10^3/uL (0.2-0.9); Monocytes % 3.7 %; Neutrophils % 80.9 %; Nucleated Red Blood Cells % 0 %; Platelet Count 317 10^3/cmm (130-400); Red Blood Count 4.14 10^6/uL (4.1-5.3); Red Cell Distribution Width 12.6 % (12.1-15.1); White Blood Count 9.3 10^3/uL (4.0-10.0)
[2021-04-20] MEDS: aspirin 81 mg EC Tablet PO (05:37)
[2021-04-20 05:42] LABS: Fibrinogen 486 mg/dL (174-498)
[2021-04-20 05:48] LABS: D Dimer 0.76 ug/mIFEU (0-0.59)
[2021-04-20 05:50] LABS: Alanine Aminotransferase 24 U/L (0-33); Albumin Level 2.9 g/dL (3.5-5.2); Alkaline Phosphatase 73 IU/L (35-105); Anion Gap 14.3 (5-19); Aspartate Amino Transferase 48 U/L (0-32); Blood Urea Nitrogen 25 mg/dL (8-23); Carbon Dioxide 27 mmol/L (22-29); Chloride 93 mmol/L (98-107); Globulin 3.8 g/dL (1.3-4.6); Glomerular Filtration Rate 72.7 mL/min (90-130); Glucose 224 mg/dL (65-115); Osmolality Calculated 281 mOsm/kg (285-295); Potassium 4.3 mmol/L (3.5-5.1); Sodium 130 mmol/L (136-145); Total Bilirubin 0.2 mg/dL (0.15-1.2); Total Protein 6.7 g/dL (6.6-8.7)
[2021-04-20 05:53] LABS: Slide Review Slide Review Perform
[2021-04-20 06:05] LABS: Ferritin 1408 ng/mL (15-150)
--- NOTE | 2021-04-20 07:42 | PC.NURSE ---
Report received. Assessment completed. No c/o pain. Bipap in place. 100%FIO2. Pt encouraged to lay on side. AAOx4. Makes needs known. No void at this time. Will monitor
[2021-04-20 07:54] LABS: Glucose Point of Care 187 mg/dL (70-110)
[2021-04-20 07:59] LABS: ABG PCO2 44.1 mmHg (35-45); ABG PH Result 7.42 (7.35-7.45); Alveolar-Arterial Oxygen Gradi 78.5 mmHg (5-10); Arterial Blood Gas Hematocrit 40.8 % (37-47); Base Excess ABG 3.7 mmol/L (-2.0-2.0); Blood Gas Allen Test Pos; Blood Gas Sample Site Radial, right; Blood Gas Sample Type Arterial; Carboxyhemoglobin 0.5 %THgb (0.4-20.1); HCO3 ABG 28.7 mmol/L (22-26); HGB O2 Sat 89.3 % (95-100); Ionized Calcium Level - ABG 1.2 mmol/L (1.1-1.4); Methemoglobin 0.8 % (0.4-1.5); Oxygen Device BIPAP; Oxygen Saturation ABG 90.5; PO2 ABG 58.4 mmHg (80.0-100.0); Potassium Level - ABG 4.1 mmol/L (3.5-5.0); Total Hemoglobin 13.3 g/dL (12-16)
--- NOTE | 2021-04-20 08:20 | XR_ITS ---
WS: [id number] Portable AP upright chest, 04/20/2021 Clinical Data: Respiratory failure Comparison: Portable chest, 04/19/2021 Findings: There is no change in the diffuse bilateral pulmonary opacities. There is elevation left di aphragm unchanged. The heart size is probably enlarged. Monitor leads are on the chest wall. XR/XR chest 1V portable [id number] Impression: No change in bilateral pulmonary opacities.
[2021-04-20] MEDS: sodium chloride 0.9% 1,000 ML 75 ML IV (08:23)
[2021-04-20 09:00] LABS: Magnesium 2.1 mg/dL (1.7-2.3); Phosphorus 3.5 mg/dL (2.5-4.5)
--- NOTE | 2021-04-20 09:23 | PC.CHAP ---
Pastoral Care Encounter/Spiritual Assessment Type of Contact [] Declined assurance specialist visit [] Patient/Family/Request visit [] Outpatient visit [] Follow-up visit [] Physician referral [] Code/Alert [x] Routine visit [] Staff referral [] Actively dying [] Patient sleeping [] Family support [] [] Out of room [] Palliative care [] [] Receiving care in room [] Pre-surgical visit [] Trauma [] Long length of stay [x] ICU visit [x] Other: ventilator Relational/Emotional Strength [] Patient feels connected with others/family/visitors/staff [] Distress [] Loneliness/isolation [] Abandonment Spirituality of Patient [] Person of Sandra [] Attends Voodoo of their Sandra [] Believes in Prayer [] Reads Bible or Latter Day materials [] There are Spiritual issues to be addressed Coverstitch Binder Interventions [x] Prayer [] Active listening [] Non-anxious presence [] Spiritual/emotional support [] Crisis/trauma care [] Spiritual counseling [] Bereavement support [] Provided bereavement packet [] Provided Bible/devotional materials [] Provided toy/stuffed animal, coloring book to patient or family member [] Provided Communion [] Anointing/Lester [] Salvation [x] Completed spiritual assessment [] Other: Impact on Illness or Injury [] Angry [] Fearful [] Anxious [] Often cries [] Exhaustion [] Unable to work [] Unable to attend rastafari [] Unable to walk/stand [] Unable to read [] Unable to drive [] Unable to eat/drink [] Unable to sleep [] Unable to be with family [] Patient intubated [] Other: Summary Time spent with patient
[2021-04-20 10:15] LABS: Add Urine Microscopic? NO; Charge for UA Resulting for Rev
[2021-04-20 10:18] LABS: Urine Random Sodium < 10 mmol/L
[2021-04-20 10:24] LABS: Bilirubin Urine Neg (Negative); Blood Urine Neg (Negative); Glucose Urine UA Trace (Normal); Ketones Urine 1+ (Negative); Leukocyte Esterase Urine Negative (Negative); Nitrate Urine Negative (Negative); Protein Urine 3+ (Negative); Urine Appearance Clear (CLEAR); Urine Color Yellow (Yellow); Urobilinogen Urine Norm (Negative); pH Urine 5 (5-7)
--- NOTE | 2021-04-20 10:50 | PC.NUTR ---
Nutrition consult completed at this time. No further changes warranted. Glucerna was added yesterday per this RD. Noted meals being held today due to respiratory status, per nursing. Recommend obtain current weight when possible as it is missing from EMR. Recommend to encourage po intakes of meals/supplements when safe to do so. See RD assessment for further details.
[2021-04-20 11:07] LABS: Glucose Point of Care 158 mg/dL (70-110)
[2021-04-20] MEDS: ondansetron 2 mg/ML SDV 2 mL 4 MG IVP (13:16)
--- NOTE | 2021-04-20 13:33 | PC.NURSE ---
Spoke at length with via phone. Update given. Care plan reviewed and questions answered. informed team of patient's sister passing away at another facility due to covid. requests patient not be made aware of this occurrence. denies further questions at present time. Patient still looking favorable for intubation but is not agreeable to intubation at present time.
[2021-04-20 15:14] LABS: ABG PCO2 48.9 mmHg (35-45); ABG PH Result 7.39 (7.35-7.45); Alveolar-Arterial Oxygen Gradi 78.5 mmHg (5-10); Arterial Blood Gas Hematocrit 41.9 % (37-47); Base Excess ABG 3.5 mmol/L (-2.0-2.0); Blood Gas Allen Test Pos; Blood Gas Operator Identificat BD; Blood Gas Sample Site Brachial, left; Blood Gas Sample Type Arterial; Carboxyhemoglobin 0.7 %THgb (0.4-20.1); HCO3 ABG 29.4 mmol/L (22-26); HGB O2 Sat 85.4 % (95-100); Ionized Calcium Level - ABG 1.1 mmol/L (1.1-1.4); Methemoglobin 0.7 % (0.4-1.5); Oxygen Device BIPAP; Oxygen Saturation ABG 86.6; PO2 ABG 53.3 mmHg (80.0-100.0); Total Hemoglobin 13.7 g/dL (12-16)
[2021-04-20 15:53] LABS: Osmolality Serum 286 mOsm/kg (278-305)
--- NOTE | 2021-04-20 16:06 | XRR_ITS ---
PROCEDURE INFORMATION: Exam: XR Chest Exam date and time: 04/20/2021 4:06 PM Age: 60 years old Clinical indication: Device placement; Other: Central line/ett/ng; Additional info: Et tube/ng tube placement TECHNIQUE: Imaging protocol: XR of the chest. Views: 1 view. COMPARISON: CR XR chest 1V portable [id number] 04/20/2021 8:23 AM FINDINGS: Tubes, catheters and devices: Right central venous catheter tip at the atrial caval junction. 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 Endotracheal tube tip in place 3.8 cm above the smiley. Lungs: Increased bilateral mixed interstitial and airspace infiltrates. Pleural spaces: Unremarkable. No pleural effusion. No pneumothorax. Heart/Mediastinum: Unremarkable. No cardiomegaly. Bones/joints: Unremarkable. XR/XR chest 1V portable [id number] IMPRESSION: 1. Right central venous catheter tip at the atrial caval junction. 2. 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 3. Endotracheal tube tip in place 3.8 cm above the smiley. 4. Increased bilateral mixed interstitial and airspace infiltrates.
[2021-04-20] MEDS: cisatracurium 2 mg/mL SDV 10mL 10.3 MG IV (16:17)
[2021-04-20] MEDS: propofol 1,000 MG/100 ML INJ 12.41 MG IV (16:21)
[2021-04-20] MEDS: midazolam 1 mg/mL INJ 2 mL 2 MG (16:22)
[2021-04-20] MEDS: midazolam 1 mg/mL INJ 5 ML 2 MG IV (16:42)
[2021-04-20] MEDS: remdesivir 100 MG in sodium chloride 0.9% (100 ml) 100 ML IV (17:29)
[2021-04-20] MEDS: gabapentin 400 mg Capsule PO (17:43)
[2021-04-20] MEDS: duloxetine 30 mg Capsule PO (17:43)
[2021-04-20] MEDS: famotidine 20 mg Tablet PO (17:43)
[2021-04-20] MEDS: dexamethasone 4 mg/mL INJ 6 MG IVP (17:43)
[2021-04-20] MEDS: ascorbic acid 500 mg Tablet PO (17:43)
[2021-04-20 17:58] LABS: ABG PCO2 55.8 mmHg (35-45); ABG PH Result 7.33 (7.35-7.45); Alveolar-Arterial Oxygen Gradi 75.2 mmHg (5-10); Arterial Blood Gas Hematocrit 39.6 % (37-47); Base Excess ABG 2.5 mmol/L (-2.0-2.0); Blood Gas Allen Test Pos; Blood Gas Operator Identificat BD; Blood Gas Sample Site Brachial, left; Blood Gas Sample Type Arterial; Carboxyhemoglobin 0.6 %THgb (0.4-20.1); HCO3 ABG 29.6 mmol/L (22-26); Ionized Calcium Level - ABG 1.1 mmol/L (1.1-1.4); Methemoglobin 0.8 % (0.4-1.5); Oxygen Device VENT; Oxygen Saturation ABG 92.3; PO2 ABG 69.6 mmHg (80.0-100.0); Potassium Level - ABG 4.3 mmol/L (3.5-5.0); Total Hemoglobin 12.9 g/dL (12-16)
--- NOTE | 2021-04-20 18:06 | PC.NURSE ---
1556 Md at bedside. Pt gave verbal ok for intubation. Versed 2mg given. 1557 20mg etomidate given. 1600 20mg propofol given per MD. 1605 10.3mg nimbex given IVP 1620 60mg propofol given per MD. PT intubated at 1627 with 8.0 ETT, 23cm at lip. Vent settings per RT. OGT placed per nurse resident without difficulty. R IJ CVL placed at approximately 1700, CXR to verify placement of ETT, OGT and CVL. Ok given to use line. Pt on fentanyl gtt at 200mcg/min, propofol gtt at 40mcg/kg/min, versed gtt at 8mg/min. Bilateral wrist restraints placed per MD order. Blount draining clear adwoa urine to BSD.
--- NOTE | 2021-04-20 18:21 | P.PN_ITS ---
Subjective Subjective: Interval history: Overnight, early in the evening of 04/19/2021, patient remained increasingly hypoxic on maximal settings of her heated high flow, so she was transferred down to the ICU where she was placed on BiPAP. Patient remained hypoxic to the 80s. She was and oriented to person place and time. When the idea of intubation as the next step was brought up, she resisted the idea. Attempts were made to have her prone or lie on her side, but she still remained hypoxic. Spoke with her , regarding her wishes, and her , wanted her to make the decision, even though he is a next of kin. I spoke with the patient again but over conference call in her room with her on the phone line, and she finally agreed to be intubated. She was intubated by me around 5 PM, and a right IJ central line was placed by me. Also prior into the intubation, a Blount catheter was placed. Vitals/I&O/Wt Last Vital Signs Temp 98.8 F 04/20/21 18:00 Pulse 71 04/20/21 18:00 Resp 19 H 04/20/21 18:00 BP 99/67 04/20/21 18:00 Pulse Ox 90 04/20/21 18:00 04/20/21 04/20/21 04/20/21 06:59 14:59 22:59 Intake Total 1086.315 / 1086.315 Output Total 650 / 650 Balance -20 / 220 -650 / -650 1086.315 / 436.315 Weight last 48 hrs Weight 103.419 kg Physical Exam Const: GENERAL APPEARANCE: disheveled and ill appearing NUTRITIONAL APPEARANCE: overweight ORIENTATION/CONSCIOUSNESS: Yes awake, Yes oriented to person, Yes oriented to place and Yes oriented to time HENMT: COMMON NORMALS: normocephalic, atraumatic, external ears normal and Normal external nose present HEAD & SCALP: normocephalic and atraumatic FACE & SINUS: normal facial exam NOSE: Normal external nose present EXTERNAL EAR: Yes external ears normal MOUTH: Normal oral and palatal mucosa present Eye: COMMON NORMALS: Equal, round and reactive pupils present and conjunctivae normal CONJUNCTIVA: Yes conjunctivae normal PUPIL: Yes Equal, round and reactive pupils present EOM: No EOM abnormal Neck/C-Spine: COMMON NORMALS: Thyroid normal GENERAL: Yes trachea midline, No anterior neck swelling and No lymphadenopathy THYROID: Thyroid normal Resp: EFFORT & INSPECTION: Yes able to speak in complete sentences AUSCULTATION: crackles Laterality: right (RML), no wheezes and diminished lung sounds on the right in the lower lung tinoco (RLL) and on the left (LML & LLL) Cardio: COMMON NORMALS: regular rate and regular rhythm RATE: regular rate RHYTHM: regular rhythm HEART SOUNDS: no click, no gallops, no murmurs and no rubs Extremity: COMMON NORMALS: no clubbing, cyanosis or edema Neuro: SENSORIUM/ORIENTATION: Yes oriented to person, Yes oriented to place and Yes oriented to time CRANIAL NERVES: Yes CN normal except as noted SPEECH: Other neuro speech findings (slow) GAIT: Yes Unable to assess gait SENSORY EXAM: Yes Normal double simultaneous stimulation for sensation MOTOR EXAM: 5/5 motor strength present throughout Psych: SPEECH: Yes slow MOOD & AFFECT: Yes sad Skin: COMMON NORMALS: no rashes or lesions noted GENERAL SKIN EXAM: no rashes or lesions noted Urinary Catheter Management^: Blount: Cath Placed During This Visit: yes Reason for Continuing Indwelling Catheter: Accurate Measurement of Urinary Output in Critically Ill Patients Urinary Catheter Date of Insertion: 04/20/21 Urinary Catheter Time of Insertion: 08:45 Data : 04/20/21 04:52 04/20/21 04:52 A&P Assessment and plan (1) Acute respiratory failure with hypoxia: Status: Acute (2) Pneumonia due to COVID-19 virus: Status: Acute (3) Diabetes: Status: Acute (4) Hypertension: Status: Acute (5) Gout: Status: Acute (6) Obesity: Status: Acute Ms. Arellano is a 60yo woman w/ HTN, non-IDDM2, Gout, who was diagnosed with Covid on 04/14/2021 and presented to the ED on 04/17/2021 with complaints of worsening generalized weakness, chills, myalgias, nausea, vomiting, cough, dyspnea, and intermittent fevers. Per documentation, the patient has multiple family members who were found to be sick with Covid, and her mother at home because of Covid. Her CXR in the ED showed groundglass opacities consistent w ith multilobar pneumonia. She was admitted for acute hypoxic respiratory failure caused by multilobar viral pneumonia COVID-19 infection. Neuro/Psych - On Propfol, Fentanyl, Versed drip & wrist restraints. CV # HTN: Held Losartan Resp #Acute hypoxic respiratory failure # Multilobar viral pneumonia # COVID-19 infection - S/p Remdesivi. Continue Dexamethasone, Ceftriaxone/Azithromycin, Zinc, Vit D po, famotidine. Gave a dose of Tocilizumab - Monitor inflammatory markers. Titrate O2. GI - Consult Nutrition for tube feeds. - On famotidine for GI ppx Renal #Hyponatremia - Multifactorial: Pre-renal vs SIADH vs diuretics given on admission in the setting of poor po intake - F/u urine studies. Endo # non-IDDM2 - Accuchecks ordered AC/HS. Continue to monitor. Started insulin glargine 10 units nightly with medium dose sliding scale insulin. MSK # Gout? - On allopurinol, but a low dose. Heme - No acute issues DVT ppx: Lovenox. Additional A&P Information CODE STATUS: Full code DVT prophylaxis: On Lovenox Disposition: Discharge to home Attestations Medical Necessity Statement*: Patient requires continuous hospitalization, because she is now intubated and sedated. Critical Care Time: Over 90 minutes of critical care time was spent in direct care of this patient. Critical Care Time (min): 90 Coding Level of Care Code Acute Physicist [place] for [facility] Diagnoses Acute respiratory failure with hypoxia J96.01 Pneumonia due to COVID-19 virus U07.1; J12.82 Diabetes E11.9 Hypertension I10 Gout M10.9 Obesity E66.9
[2021-04-20 18:26] LABS: Glucose Point of Care 195 mg/dL (70-110)
--- NOTE | 2021-04-20 19:36 | PC.NURSE ---
ASSUMING CARE Patient resting in bed on mechanical ventilation, VC-AC, 23 cm at lip, 8.0, FiO2 100%, TV 400, PEEP 12, Rate 18. Fentanyl is running at 200 mcg/hour, propofol at 40 mcg/kg/min, and versed at 8 mg/hour. Blount catheter in place and draining. Orogastric tube in place. Right internal jugular CVL in place with blood return. Dr. Smart on unit checking on patients status, states that she gave orders to turn sedation medications up to achieve adequate sedation. Gave verbal order that versed max can be increased up to 10 mg/hour and fentanyl up to 150 mcg/hour if needed. Order to slowly start weening fentanyl down to 150 mcg/hour per patient response.
[2021-04-20] MEDS: insulin glargine 100 units/1 mL 10 UNIT SUBCUT (20:33)
[2021-04-20] MEDS: enoxaparin 40 mg/0.4 mL Syringe SUBCUT (20:40)
[2021-04-20] MEDS: propofol 1,000 MG/100 ML INJ 24.82 MG IV (20:57)
[2021-04-20] MEDS: cefTRIAXone 1,000 MG in sodium chloride 0.9% (plus) 100 ML 100 MG IV (23:29)
[2021-04-21] VITALS (110 sets, daily range): BP systolic 84–124; BP diastolic 51–76; PULSE 47–70; RESP 18–22; TEMP 36.2–36.8; O2SAT 87–95
[2021-04-21] MEDS: azithromycin 500 MG in sodium chloride 0.9% 250 ML 250 MG IV (00:27)
[2021-04-21] MEDS: propofol 1,000 MG/100 ML INJ 18.62 MG IV (00:59)
[2021-04-21] MEDS: sodium chloride 0.9% 1,000 ML 75 ML IV (03:44)
[2021-04-21 03:58] LABS: ABG PCO2 47.7 mmHg (35-45); ABG PH Result 7.38 (7.35-7.45); Arterial Blood Gas Hematocrit 48.6 % (37-47); Base Excess ABG 2.1 mmol/L (-2.0-2.0); Blood Gas Allen Test Pos; Blood Gas Operator Identificat JB; Blood Gas Sample Site Radial, right; Blood Gas Sample Type Arterial; HCO3 ABG 28.1 mmol/L (22-26); Oxygen Device VENT
--- NOTE | 2021-04-21 04:30 | PC.NURSE ---
BRADYCARDIA Patients heart rate has slowly decreased throughout the night from 60s to mid 50s. Normotensive with no other symptoms. Sedation medications decreased throughout the night because of this issue. Will continue to monitor.
[2021-04-21 05:13] LABS: Basophils % 0.3 %; Hematocrit 35.7 % (37.0-47.0); Hemoglobin 11.7 g/dL (11.5-15.3); Lymphocytes # 1.1 10^3/uL (0.8-4.8); Lymphocytes % 9.9 %; Mean Corpuscular HGB Conc 32.8 g/dL (30.0-36.0); Mean Corpuscular Hemoglobin 31.1 pg (28.0-34.0); Mean Corpuscular Volume 94.9 fL (81-99); Mean Platelet Volume 9.8 fL (7.4-10.4); Monocytes # 0.3 10^3/uL (0.2-0.9); Monocytes % 2.8 %; Neutrophils # 9.11 10^3/uL (1.8-7.7); Neutrophils % 85.2 %; Nucleated Red Blood Cells % 0 %; Platelet Count 367 10^3/cmm (130-400); Red Blood Count 3.76 10^6/uL (4.1-5.3); Red Cell Distribution Width 12.6 % (12.1-15.1); White Blood Count 10.7 10^3/uL (4.0-10.0)
[2021-04-21] MEDS: aspirin 81 mg EC Tablet PO (05:19)
[2021-04-21] MEDS: propofol 1,000 MG/100 ML INJ 15.51 MG IV (05:19)
[2021-04-21 05:39] LABS: Alanine Aminotransferase 19 U/L (0-33); Albumin Level 2.6 g/dL (3.5-5.2); Alkaline Phosphatase 75 IU/L (35-105); Anion Gap 14.6 (5-19); Aspartate Amino Transferase 34 U/L (0-32); Blood Urea Nitrogen 26 mg/dL (8-23); Calcium 7.5 mg/dL (8.5-10.5); Carbon Dioxide 27 mmol/L (22-29); Chloride 98 mmol/L (98-107); Globulin 3.4 g/dL (1.3-4.6); Glomerular Filtration Rate 63.4 mL/min (90-130); Glucose 206 mg/dL (65-115); Magnesium 2.2 mg/dL (1.7-2.3); Osmolality Calculated 291 mOsm/kg (285-295); Potassium 4.6 mmol/L (3.5-5.1); Sodium 135 mmol/L (136-145); Total Bilirubin 0.2 mg/dL (0.15-1.2)
[2021-04-21 06:02] LABS: Slide Review Slide Review Perform
--- NOTE | 2021-04-21 06:35 | PC.NURSE ---
SHIFT SUMMARY No change to ventilator settings with the exception of FiO2 from 100% to 90%. Patient has tolerated well with no turns or suctioning. When suctioned or repositioned patients oxygen decreases to the 70s. 500 mL urine output. See previous bradycardia note.
--- NOTE | 2021-04-21 07:18 | PC.NURSE ---
Report received. Pt resting in bed. No s/s of pain or SOB noted. ETT at 23cm, Vt 400, RR 18, peep 12, fio2 90%. OGT in place. R IJ CVL in place. Fentanyl at 100mcg/hr, propofol at 25mcg/kg/min, and versed at 4mg/min. Lung sounds CTA with diminished bases. Blount cath in place draining clear adwoa urine to BSD. Will monitor.
--- NOTE | 2021-04-21 07:58 | P.PN_ITS ---
Subjective Subjective: Interval history: The patient remains intubated and sedated. Her IVF ran overnight, and it was discontinued this morning, such that she only received a total of 1.5L. The big challenge for the day is that she is bradycardic down to the 40s. She is on Propofol, Fentanyl and Midazolam. Medications: Reviewed: Yes Vitals/I&O/Wt Last Vital Signs Temp 97.6 F 04/21/21 03:45 Pulse 53 L 04/21/21 06:30 Resp 18 04/21/21 06:30 BP 97/65 04/21/21 06:30 Pulse Ox 91 04/21/21 06:30 04/20/21 04/21/21 04/21/21 22:59 06:59 14:59 Intake Total 1337.583 / 6891.775 9323.776 / 2471.359 Output Total 500 / 1150 Balance 1337.583 / 687.583 633.776 / 1321.359 Weight last 48 hrs Weight 103.963 kg Weight 103.419 kg Physical Exam Const: GENERAL APPEARANCE: disheveled and ill appearing NUTRITIONAL APPEARANCE: overweight ORIENTATION/CONSCIOUSNESS: Yes awake, Yes oriented to person, Yes oriented to place and Yes oriented to time HENMT: COMMON NORMALS: normocephalic, atraumatic, external ears normal and Normal external nose present HEAD & SCALP: normocephalic and atraumatic FACE & SINUS: normal facial exam NOSE: Normal external nose present EXTERNAL EAR: Yes external ears normal MOUTH: Normal oral and palatal mucosa present Eye: COMMON NORMALS: Equal, round and reactive pupils present and conjunctivae normal CONJUNCTIVA: Yes conjunctivae normal PUPIL: Yes Equal, round and reactive pupils present EOM: No EOM abnormal Neck/C-Spine: COMMON NORMALS: Thyroid normal GENERAL: Yes trachea midline, No anterior neck swelling and No lymphadenopathy THYROID: Thyroid normal Resp: EFFORT & INSPECTION: Yes able to speak in complete sentences AUSCULTATION: crackles Laterality: right (RML), no wheezes and diminished lung sounds on the right in the lower lung tinoco (RLL) and on the left (LML & LLL) Cardio: COMMON NORMALS: regular rate and regular rhythm RATE: regular rate RHYTHM: regular rhythm HEART SOUNDS: no click, no gallops, no murmurs and no rubs Extremity: COMMON NORMALS: no clubbing, cyanosis or edema Neuro: SENSORIUM/ORIENTATION: Yes oriented to person, Yes oriented to place and Yes oriented to time CRANIAL NERVES: Yes CN normal except as noted SPEECH: Other neuro speech findings (slow) GAIT: Yes Unable to assess gait SENSORY EXAM: Yes Normal double simultaneous stimulation for sensation MOTOR EXAM: 5/5 motor strength present throughout Psych: SPEECH: Yes slow MOOD & AFFECT: Yes sad Skin: COMMON NORMALS: no rashes or lesions noted GENERAL SKIN EXAM: no rashes or lesions noted Urinary Catheter Management^: Blount: Cath Placed During This Visit: yes Reason for Continuing Indwelling Catheter: Accurate Measurement of Urinary Output in Critically Ill Patients Urinary Catheter Date of Insertion: 04/20/21 Urinary Catheter Time of Insertion: 08:45 Data : 04/22/21 05:55 04/22/21 05:55 A&P Assessment and plan (1) Acute respiratory failure with hypoxia: Status: Acute (2) Pneumonia due to COVID-19 virus: Status: Acute (3) Diabetes: Status: Acute Qualifiers: Diabetes mellitus type: type 2 Diabetes mellitus [facility] insulin use: unspecified [facility] use status Diabetes mellitus complication status: with other specified complication Qualified Code(s): E11.69 - Type 2 diabetes mellitus with other specified complication (4) Hypertension: Status: Acute Qualifiers: Hypertension type: unspecified Qualified Code(s): I10 - Essential (primary) hypertension (5) Gout: Status: Acute Qualifiers: Gout site: unspecified site Gout etiology: unspecified cause Chronicity: unspecified Qualified Code(s): M10.9 - Gout, unspecified (6) Obesity: Status: Acute Qualifiers: Obesity type: unspecified obesity type Obesity classification: adult class 2 (BMI 35 - 39.9) Serious obesity comorbidity presence: unspecified whether serious comorbidity present Body mass index: BMI 39.0-39.9 Qualified Code(s): E66.9 - Obesity, unspecified; Z68.39 - Body mass index [BMI] 39.0-39.9, adult Ms. Arellano is a 60yo woman w/ HTN, non-IDDM2, Gout, who was diagnosed with Covid on 04/14/2021 and presented to the ED on 04/17/2021 with complaints of worsening generalized weakness, chills, myalgias, nausea, vomiting, cough, dyspnea, and intermittent fevers. Per documentation, the patient has multiple family members who were found to be sick with Covid, and her mother at home because of Covid. Her CXR in the ED showed groundglass opacities consistent with multilobar pneumonia. She was admitted for acute hypoxic respiratory failure caused by multilobar viral pneumonia COVID-19 infection. Neuro/Psych - On Propfol, Fentanyl, Versed drip & wrist restraints. CV # HTN: Held Losartan Resp #Acute hypoxic/hypercapneic respiratory failure # Multilobar viral pneumonia # COVID-19 infection - S/p Remdesivi. Continue Dexamethasone, Ceftriaxone/Azithromycin, Zinc, Vit D po, famotidine. Gave a dose of Tocilizumab on 04/21/2021. - Monitor inflammatory markers. Titrate O2. GI - Consult Nutrition for tube feeds. - On famotidine for GI ppx Renal #Hyponatremia - Likely hypovolemia - Multifactorial: Pre-renal vs SIADH vs diuretics given on admission in the setting of poor po intake Endo # non-IDDM2 - Accuchecks ordered AC/HS. Continue to monitor. Started insulin glargine 10 units nightly with medium dose sliding scale insulin. MSK # Gout? - On allopurinol, but a low dose. Heme - No acute issues DVT ppx: Lovenox. Additional A&P Information CODE STATUS: Full code DVT prophylaxis: On Lovenox Disposition: Discharge to home Attestations Medical Necessity Statement*: Patient requires continued hospitalization, because she is intubated and sedated for her acute hypoxic and hypercapnic respiratory failure due to COVID-19 pneumonia Coding Level of Care Code Acute Graphics Edit Technician for [facility] Diagnoses Acute respiratory failure with hypoxia J96.01 Pneumonia due to COVID-19 virus U07.1; J12.82 Diabetes E11.69 Diabetes mellitus type: type 2 Diabetes mellitus [facility] insulin use: unspecified [facility] insulin use status Diabetes mellitus complication status: with other specified complication Hypertension I10 Hypertension type: unspecified Gout M10.9 Gout site: unspecified site Gout etiology: unspecified cause Chronicity: unspecified Obesity E66.9; Z68.39 Obesity type: unspecified obesity type Obesity classification: adult class 2 (BMI 35 - 39.9) Serious obesity comorbidity presence: unspecified whether serious best rbidity present Body mass index: BMI 39.0-39.9
[2021-04-21] MEDS: gabapentin 400 mg Capsule PO ×2 (08:09→16:53)
[2021-04-21] MEDS: ascorbic acid 500 mg Tablet PO ×2 (08:09→16:53)
[2021-04-21] MEDS: duloxetine 30 mg Capsule PO ×2 (08:10→16:53)
[2021-04-21] MEDS: zinc gluconate 50 mg Tablet PO (08:10)
[2021-04-21] MEDS: famotidine 20 mg Tablet PO ×2 (08:10→16:53)
[2021-04-21] MEDS: cholecalciferol (vitamin D3) 1,000 unit Tablet 2000 UNIT PO (08:11)
[2021-04-21] MEDS: allopurinol 100 mg Tablet PO (08:11)
--- NOTE | 2021-04-21 08:14 | PM.ACPR ---
Procedure/Consent Time out: Time Out Performed: Yes Consent: Consent for Procedure: Consent obtained from patient, Consent obtained from other (indicate) () and Agrees to proceed with procedure (Patient and agreed) Procedure Narrative: A time out was performed. My hands were washed immediately prior to the procedure. I wore a surgical cap, mask with protective eyewear, gown and gloves throughout the procedure. The patient was placed on a equipment mechanic specialist including continuous pulse oximetry. Rapid Sequence Intubation was conducted. The patient received Etomidate 20mg, Versed 2mg, Propofol 60mg, Fentanyl 100mcg for induction and Nimbex 10mg for adequate paralysis. Cricoid pressure was maintained from time induction agent was given to time of cuff balloon inflation. Using a 3m Tray laryngoscope initially, then a Co-captain airline pilot fiber optic video scope, and a size 8cm endotracheal tube with stylet, the patient was intubated on the 2nd attempt. The stylet was removed and cuff balloon was inflated. Appropriate endotracheal tube position was confirmed by direct visualization of vocal cord passage, fogging of the tube, CO2 colometric indicator and symmetric breath sounds. The tube was secured at 22 cm at the lips. Post intubation chest x-ray confirmed placement. THIS PROCEDURE WAS DONE ON 04/20/2021 Acute Procedures Epistaxis Control: Time out performed: Yes Intubation: Time out performed: Yes Sedative: other (Etomidate 20mg, Versed 2mg, Propofol 60mg, Fentanyl 100mcg) Paralytic: other (Nimbex 10mg) Laryngoscope: other (Initial attempt w/ Tray. Success was w/ Co-captain airline pilot fiber optic video scope.) ET tube size: 8 ET tube uncuffed: Yes Tube secured depth (cm): 24 Tube secured location: lips Tube placement confirmation: visualized tube passing through cords, equal breath sounds bilaterally, confirmation by capnometry and color change noted Patient tolerated procedure: well Intubation complications: none
--- NOTE | 2021-04-21 08:18 | XR_ITS ---
WS: [id number] Portable AP upright chest, 04/21/2021 Clinical Data: hypoxic respiratory failure Comparison: Portable chest, 04/20/2021 Findings: The bilateral pulmonary opacities have diminished slightly. The right internal jugular veno us catheter, nasogastric tube, and endotracheal tube remain in the same position. The heart size is t he same. The left diaphragm is elevated. Monitor leads are on the chest wall. XR/XR chest 1V portable 64103 Impression: 1. Slight decrease in bilateral pulmonary opacities. 2. No change in position of multiple tubes.
--- NOTE | 2021-04-21 08:27 | P.PCN_ITS ---
Procedure/Consent Time out: Time Out Performed: Yes Consent: Consent for Procedure: Consent obtained from patient, Consent obtained from other (indicate) (), Risks & Benefits reviewed and Agrees to proceed with procedure Procedure Narrative: My hands were washed immediately prior to the procedure. I wore a surgical cap, mask with protective eyewear, full gown and sterile gloves throughout the procedure. The patient was placed in Trendelenburg position. The RIGHT chest region was prepped using chlorhexidine scrub and draped in sterile fashion using a full drape and sterile probe cover and sterile gel employed. The medial and lateral heads of the sternocleidomastoid muscle were identified as was the carotid pulse. The Internal Jugular vein was identified using the ultrasound. Anesthesia was achieved over the vein using 1% lidocaine. Using real-time out of plane guidance, the introducer needle was inserted into the Internal Jugular vein under direct ultrasound visualization. Venous blood was withdrawn. The syringe was removed and a guidewire was advanced into the introducer needle. The guidewire was visualized in the Internal Jugular Vein by ultrasound. A small incision was made at the skin surface with a scalpel and the introducer needle was exchanged for a dilator over the guidewire. After appropriate dilation was obtained, the dilator was exchanged over the wire for a central venous catheter. The wire was removed and the catheter was sutured in place. A sterile sorbaview shield was placed over the catheter at the insertion site. The patient tolerated the procedure without any hemodynamic compromise. At time of procedure completion, all ports aspirated and flushed properly. Post- procedure chest x-ray is pending at this time. Estimated blood loss is 2cc. THIS PROCEDURE WAS DONE BY HOUSTON DANG MD was completed at Approximately 17:45pm on 04/20/2021. Acute Procedures Epistaxis Control: Time out performed: Yes
[2021-04-21 09:12] LABS: Glucose Point of Care 227 mg/dL (70-110)
[2021-04-21 09:15] LABS: C Reactive Protein 99.7 mg/L (0.0-4.9); Lactate Dehydrogenase 807 U/L (135-214)
--- NOTE | 2021-04-21 09:18 | PC.CHAP ---
Pastoral Care Encounter/Spiritual Assessment Type of Contact [] Declined vegetable grower visit [] Patient/Family/Request visit [] Outpatient visit [] Follow-up visit [] Physician referral [] Code/Alert [x] Routine visit [] Staff referral [] Actively dying [] Patient sleeping [] Family support [] [] Out of room [] Palliative care [] [] Receiving care in room [] Pre-surgical visit [] Trauma [] Long length of stay [x] ICU visit [x] Other: ventilator Relational/Emotional Strength [] Patient feels connected with others/family/visitors/staff [] Distress [] Loneliness/isolation [] Abandonment Spirituality of Patient [] Person of Sandra [] Attends Sabianist of their Sandra [] Believes in Prayer [] Reads Bible or Anabaptist materials [] There are Spiritual issues to be addressed Computer Systems Security Administrator Interventions [x] Prayer [] Active listening [] Non-anxious presence [] Spiritual/emotional support [] Crisis/trauma care [] Spiritual counseling [] Bereavement support [] Provided bereavement packet [] Provided Bible/devotional materials [] Provided toy/stuffed animal, coloring book to patient or family member [] Provided Communion [] Anointing/[place] [] Salvation [x] Completed spiritual assessment [] Other: Impact on Illness or Injury [] Angry [] Fearful [] Anxious [] Often cries [] Exhaustion [] Unable to work [] Unable to attend religious [] Unable to walk/stand [] Unable to read [] Unable to drive [] Unable to eat/drink [] Unable to sleep [] Unable to be with family [] Patient intubated [] Other: Summary Time spent with patient
[2021-04-21 09:22] LABS: Procalcitonin 0.11 ng/mL (0-0.5)
[2021-04-21 09:28] LABS: Ferritin 1150 ng/mL (15-150)
--- NOTE | 2021-04-21 09:41 | PC.NUTR ---
Tube feeding consult: On vent, Tmax 37.1, Ve 6.6. Estimated needs: 1620 kcal (per [facility] 2009), 66-76 g protein (1.2-1.4 g/kg IBW), 1 ml/kcal fluid Recommend Glucerna 1.2, starting at 10 ml/hr and increasing by 10 ml/hr q 6 hours to goal of 40 ml/hr. Recommend Beneprotein, 1.5 tbsp (7g) via tube TID, mixed with 100 ml H2O each time. Recommend additional 150 ml H2O flushes q 6 hours. TF at goal with Beneprotein and H2O flushes to provide 1227 kcal, 76 g protein, 1673 ml H20. Additional 409 kcal from propofol noted. Recommend to decrease/stop NS as tube feeding increases.TF and flushes to be adjusted pending changes in vent status, tolerance, and other fluid provision. See RD assessment for further details.
[2021-04-21 10:09] LABS: Glucose Point of Care 211 mg/dL (70-110)
--- NOTE | 2021-04-21 10:13 | PC.NURSE ---
Tube feedings started per orders. Pt remains bradycardic, adjusting sedation as needed in attempt to correct. repositioned, oral care performed q2h and PRN. Will monitor.
--- NOTE | 2021-04-21 10:56 | ECG_ITS ---
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 Measurements Intervals [place] Rate: 56 P: 57 IL: 128 QRS: 58 QRSD: 106 T: 55 QT: 470 QTc: 456 Interpretive Statements SINUS BRADYCARDIA LOW QRS VOLTAGE IN PRECORDIAL LEADS [QRS DEFLECTION < 1.0 mV IN CHEST LEADS] Compared to ECG 04/19/2021 19:40:10 Sinus rhythm no longer present Electronically Signed On 04-21-2021 23:48:42 CDT by Beny Alvarez M.D. [email or web address]
[2021-04-21] MEDS: ipratropium-albuterol 3 mL Neb INHALATION ×5 (11:13→23:15)
[2021-04-21 12:01] LABS: Glucose Point of Care 188 mg/dL (70-110)
[2021-04-21 12:24] LABS: D Dimer 0.87 ug/mIFEU (0-0.59)
[2021-04-21] MEDS: propofol 1,000 MG/100 ML INJ 9.31 MG IV (12:29)
[2021-04-21 12:30] LABS: Troponin(5th) Baseline 8 ng/L (0-10)
[2021-04-21] MEDS: FUROsemide 10 mg/mL SDV 2mL 20 MG IVP (15:08)
--- NOTE | 2021-04-21 15:17 | PM.CONSULT ---
Providers/Reason For Consult Consulting Physician/Specialty*: Judah Dowling MD / Pulmonary Critical Care Reason for Consult*: Acute hypoxemic respiratory failure secondary to ARDS due to COVID-19 pneumonia Requesting Physician: Maria Teresa Velasquez MD Attending Physician: Maria Teresa Velasquez MD History of Present Illness History of Present Illness Kayli Arellano is a 60 year old female with PMH hypertension, diabetes, obesity, sleep apnea, gout admitted with chief complaint of worsening generalized weakness associated with chills, generalized body pain, lethargy, nausea, vomiting, cough, shortness of breath and on and off fever at home. She was diagnosed with Covid 04/14/2021, multiple family members are sick with Covid, recently her mother at home because of Covid, 1 sister due to Covid in a hospital in [place], another sister is currently being treated here in the same ICU for COVID-19 pneumonia hypoxic respiratory failure. During admission initial chest x-ray showed patchy groundglass opacities in the lung bases and right midlung. ABG on FiO2 30% showed 7.4 50. CRP was 53 and procalcitonin 0.12. She was admitted to ICU for close monitoring on 6 L nasal cannula. Started on Sunday remdesivir protocol, dexamethasone 6 mg daily, Rocephin and azithromycin for antibiotic coverage, incentive spirometry, flutter valve and albuterol and Advair inhalation. Patient is receiving losartan 25 mg p.o. daily for hypertension and allopurinol 100 mg p.o. daily for gout. She was started on low-dose sliding scale for diabetes. Also started on Lovenox 40 mg for DVT prophylaxis. Later on I was asked course of the next 3 days of hospitalization her oxygen requirements steadily kept increasing and she was saturating mid 80s even on BiPAP 100%. Failed to respond to proning and after discussing with her she was intubated on 04/20/2021. Patient was given a dose of Tocilizumab post intubation. Pulmonary critical care consulted for acute hypoxic respiratory failure secondary to ARDS due to COVID-19 pneumonia Today patient seen at bedside Intubated and sedated with propofol 15, fentanyl 50, Versed 4 Saturating 94% on PEEP of 12 and FiO2 85% and CMV mode with RR 18 and tidal volume 400; plateau pressures 35 peak pressure 36 Labs and imaging reviewed and pertinent findings incorporated in assessment and plan Review of Systems General: Reports: ROS unobtainable due to endotracheal tube, ROS unobtainable due to medical condition and ROS unobtainable due to mental status Meds/Allergies Home Medications and Allergies Home Medications Medication Instructions Recorded Confirmed Last Taken Type allopurinol 100 mg tablet 100 mg PO DAILY 06/27/20 04/17/21 Unknown History aspirin 81 mg tablet,delayed 81 mg PO QAM 06/27/20 04/17/21 04/17/21 History release losartan 25 mg tablet 25 mg PO DAILY 06/27/20 04/17/21 Unknown History acetaminophen [Tylenol Extra 1,000 mg PO Q4H PRN 04/17/21 04/17/21 04/17/21 08:00 History Strength] duloxetine 30 mg PO BID 04/17/21 04/17/21 Unknown History gabapentin 400 mg PO BID 04/17/21 04/17/21 Unknown History metformin 500 mg PO DAILY 04/17/21 04/17/21 Unknown History pramipexole See Rx Instructions .ROUTE .COMPLEX 04/17/21 04/17/21 Unknown History Allergies Allergy/AdvReac Type Severity Reaction Status Date / Time Sulfa (Sulfonamide Allergy rash Verified 04/17/21 16:11 Antibiotics) Current Medications Current Medications Generic Name Dose Route Start Last Admin Trade Name Freq PRN Reason Stop Dose Admin Albuterol/Ipratropium 3 ml 04/21/21 12:00 04/21/21 15:15 Ipratropium-Albuterol 3 Ml Neb INHALATION 3 ml Q4H.RESPIRATORY ALEX Administration Allopurinol 100 mg 04/18/21 09:00 04/21/21 08:11 Allopurinol 100 Mg Tablet PO 100 mg DAILY ALEX Administration Ascorbic Acid 500 mg 04/18/21 09:00 04/21/21 08:09 Ascorbic Acid 500 Mg Tablet PO 500 mg BID ALEX Administration Aspirin 81 mg 04/18/21 06:00 04/21/21 05:19 Aspirin 81 Mg Ec Tablet PO 81 mg QAM ALEX Administration Dexamethasone 6 mg 04/18/21 18:45 04/20/21 17:43 Dexamethasone 4 Mg/Ml Inj IVP 6 mg Q24H ALEX Administration Duloxetine HCl 30 mg 04/18/21 09:00 04/21/21 08:10 Duloxetine 30 Mg Capsule PO 30 mg BID ALEX Administration Enoxaparin Sodium 40 mg 04/18/21 21:45 04/20/21 20:40 Enoxaparin 40 Mg/0.4 Ml Syringe SUBCUT 40 mg Q24H ALEX Administration Famotidine 20 mg 04/18/21 09:00 04/21/21 08:10 Famotidine 20 Mg Tablet PO 20 mg BID ALEX Administration Gabapentin 400 mg 04/18/21 09:00 04/21/21 08:09 Gabapentin 400 Mg Capsule PO 400 mg BID ALEX Administration Guaifenesin/Dextromethorphan 10 ml 04/17/21 19:55 04/17/21 21:42 Guaifenesin-Dextromethorphan Udc 10 Ml PO 10 ml Q4H PRN Administration COUGH Remdesivir 100 mg/ Sodium 100 mls @ 100 mls/hr 04/18/21 18:00 04/20/21 18:31 Chloride IV 04/21/21 18:59 Infused Q24H ALEX Infusion Azithromycin 500 mg/ Sodium 250 mls @ 250 mls/hr 04/17/21 19:55 04/21/21 01:38 Chloride IV Infused Q24H ALEX Infusion Protocol Ceftriaxone Sodium 1,000 mg/ 100 mls @ 100 mls/hr 04/18/21 23:00 04/21/21 00:29 Sodium Chloride IV Infused Q24H ALEX Infusion Protocol Propofol 1,000 mg in 100 mls @ 0 mls/hr 04/20/21 13:45 04/21/21 12:29 Diprivan IV 15 mcg/kg/min .Q0M ALEX 9.31 mls/hr Administration Protocol Per Protocol Fentanyl 1,000 mcg/ Sodium 100 mls @ 0 mls/hr 04/20/21 13:45 04/21/21 10:00 Chloride IV 50 mcg/hr .Q0M ALEX 5 mls/hr Titration Protocol Per Protocol Midazolam HCl 100 mg/ Sodium 100 mls @ 0 mls/hr 04/20/21 16:45 04/21/21 14:50 Chloride IV 3 mg/hr .Q0M ALEX 3 mls/hr Titration Protocol Per Protocol Insulin Aspart 0 unit 04/20/21 21:00 04/20/21 20:33 Insulin Aspart 100 Unit/1 Ml SUBCUT 4 unit BEDTIME ALEX Administration Protocol Insulin Aspart 0 unit 04/21/21 08:00 04/21/21 12:04 Insulin Aspart 100 Unit/1 Ml SUBCUT 6 unit TIDWM ALEX Administration Protocol Insulin Glargine 10 unit 04/20/21 21:00 04/20/21 20:33 Insulin Glargine 100 Units/1 Ml SUBCUT 10 unit BEDTIME ALEX Administration Lorazepam 0.5 mg 04/20/21 04:22 04/20/21 04:43 Lorazepam 2 Mg/Ml Inj 1 Ml IVP 0.5 mg Q4H PRN Administration ANXIETY Ondansetron HCl 4 mg 04/18/21 11:48 04/20/21 13:16 Ondansetron 2 Mg/Ml Sdv 2 Ml IVP 4 mg Q4H PRN Administration NAUSEA Oxycodone/Acetaminophen 1 tab 04/17/21 19:55 04/17/21 21:41 Oxycodone-Apap 5-325 Mg Tablet PO 1 tab Q4H PRN Administration SEVERE PAIN Fluticasone/Salmeterol 1 puff 04/17/21 20:00 04/21/21 07:57 Fluticasone-Salmeterol 250-50 Diskus INHALATION Not Given BID.RESPIRATORY ALEX Vitamin D 2,000 unit 04/18/21 09:00 04/21/21 08:11 Cholecalciferol (Vitamin D3) 1,000 Unit Tablet PO 2,000 unit DAILY ALEX Administration Zinc Gluconate 50 mg 04/18/21 09:00 04/21/21 08:10 Zinc Gluconate 50 Mg Tablet PO 50 mg DAILY ALEX Administration Vitals/I&O/Wt Last Vital Signs Temp 98.1 F 04/21/21 12:00 Pulse 56 L 04/21/21 15:15 Resp 18 04/21/21 15:15 BP 104/65 04/21/21 14:00 Pulse Ox 93 04/21/21 15:15 04/21/21 04/21/21 04/21/21 06:59 14:59 22:59 Intake Total 1133.776 / 2471.359 706.820 / 706.820 Output Total 500 / 1150 Balance 633.776 / 1321.359 706.820 / 706.820 Weight last 48 hrs Weight 229 lb 3.2 oz Weight 228 lb Physical Exam Narrative: EXAM NARRATIVE: PHYSICAL EXAM: General: lying in bed, sedated and intubated. HEENT:NCAT, PERRLA, EOMI Neck: Supple Lungs: Mild diffuse crackles bilaterally, good air entry Heart: s1/s2, RRR Abd: soft, NT, ND, BS + Normoactive Extremities: No edema THREAD CLIPPER: sedated and limited THREAD CLIPPER exam possible. SKIN: no rash LDA: # CVC: Right IJ placed 04/20/2021 # Blount: 04/20/2021 Urinary Catheter Management^: Blount: Cath Placed During This Visit: yes Reason for Continuing Indwelling Catheter: Accurate Measurement of Urinary Output in Critically Ill Patients Urinary Catheter Date of Insertion: 04/20/21 Urinary Catheter Time of Insertion: 08:45 Data Labs: Other Labs: Laboratory Results WBC 10.7 10^3/uL (4.0 -10.0) H 04/21/21 04:37 RBC 3.76 10^6/uL (4.1 -5.3) L 04/21/21 04:37 Hgb 11.7 g/dL (11.5-1 5.3) 04/21/21 04:37 Hct 35.7 % (37.0-47.0 ) L 04/21/21 04:37 MCV 94.9 fL (81-99) 04/21/21 04:37 MCH 31.1 pg (28.0-34. 0) 04/21/21 04:37 MCHC 32.8 g/dL (30.0-3 6.0) 04/21/21 04:37 RDW 12.6 % (12.1-15.1 ) 04/21/21 04:37 Plt Count 367 10^3/cmm (130 -400) 04/21/21 04:37 MPV 9.8 fL (7.4-10.4) 04/21/21 04:37 Neut % (Auto) 85.2 % 04/21/21 04:37 Lymph % (Auto) 9.9 % 04/21/21 04:37 Haakon % (Auto) 2.8 % 04/21/21 04:37 Eos % (Auto) 0.0 % 04/21/21 04:37 Baso % (Auto) 0.3 % 04/21/21 04:37 Neut # (Auto) 9.11 10^3/uL (1.8 -7.7) H 04/21/21 04:37 Lymph # (Auto) 1.1 10^3/uL (0.8- 4.8) 04/21/21 04:37 Haakon # (Auto) 0.3 10^3/uL (0.2- 0.9) 04/21/21 04:37 Eos # (Auto) 0.0 10^3/uL (0.0- 0.8) 04/21/21 04:37 Baso # (Auto) 0.0 10^3/uL (0.0- 0.1) 04/21/21 04:37 Nucleated RBC % (a uto) 0 % 04/21/21 04:37 Nucleated RBCs # 0.0 /100WBC 04/21/21 04:37 Fibrinogen 486 mg/dL (174-49 8) 04/20/21 04:52 D-Dimer 0.87 ug/mIFEU (0- 0.59) H 04/21/21 11:45 Specimen Type Arterial 04/21/21 03:44 Sample Site Radial, right 04/21/21 03:44 ABG pH 7.38 (7.35-7.45) 04/21/21 03:44 ABG pCO2 47.7 mmHg (35-45) H 04/21/21 03:44 ABG pO2 71.0 mmHg (80.0-1 00.0) L 04/21/21 03:44 ABG HCO3 28.1 mmol/L (22-2 6) H 04/21/21 03:44 ABG O2 Saturation 92.3 04/20/21 17:48 ABG Base Excess 2.1 mmol/L (-2.0- 2.0) H 04/21/21 03:44 Morro Test Pos 04/21/21 03:44 A-a O2 Gradient 75.2 mmHg (5-10) H 04/20/21 17:48 Hematocrit 48.6 % (37-47) H 04/21/21 03:44 Hgb O2 Saturation 91.0 % (95-100) L 04/20/21 17:48 Carboxyhemoglobin 0.6 %THgb (0.4-20 .1) 04/20/21 17:48 Methemoglobin 0.8 % (0.4-1.5) 04/20/21 17:48 Total Hemoglobin 12.9 g/dL (12-16) 04/20/21 17:48 Sodium 134.0 mmol/L (131 -143) 04/20/21 17:48 Potassium 4.3 mmol/L (3.5-5 .0) 04/20/21 17:48 Glucose 212.0 mg/dL (70-1 15) H 04/20/21 17:48 Ionized Calcium 1.1 mmol/L (1.1-1 .4) 04/20/21 17:48 O2 Delivery Device Vent 04/21/21 03:44 O2 Liters/Min 60.0 % 04/19/21 13:41 FiO2 90.0 % 04/21/21 03:44 Tidal Volume 0.40 04/21/21 03:44 PEEP 12.0 cmH20 04/21/21 03:44 [employer] Att[employer] ID Rob 04/21/21 03:44 Sodium 135 mmol/L (136-1 45) L 04/21/21 04:37 Potassium 4.6 mmol/L (3.5-5 .1) 04/21/21 04:37 Chloride 98 mmol/L (98-107 ) 04/21/21 04:37 Carbon Dioxide 27 mmol/L (22-29) 04/21/21 04:37 Anion Gap 14.6 (5-19) 04/21/21 04:37 BUN 26 mg/dL (8-23) H 04/21/21 04:37 Creatinine 0.9 mg/dL (0.5-0. 9) 04/21/21 04:37 GFR Calculation 63.4 mL/min (90-1 30) L 04/21/21 04:37 Glucose 206 mg/dL (65-115 ) H 04/21/21 04:37 POC Glucose 188 mg/dL (70-110 ) H 04/21/21 11:55 Serum Osmolality 286 mOsm/kg (278- 305) 04/19/21 06:52 Calculated Osmolal ity 291 mOsm/kg (285- 295) 04/21/21 04:37 Lactic Acid 2.2 mmol/L (0.5-2 .2) 04/17/21 15:42 Lactic Acid (Sepsi s) 1.0 mmol/L (0.5-2 .2) 04/17/21 19:15 Calcium 7.5 mg/dL (8.5-10 .5) L 04/21/21 04:37 Phosphorus 3.0 mg/dL (2.5-4. 5) 04/21/21 04:37 Magnesium 2.2 mg/dL (1.7-2. 3) 04/21/21 04:37 Ferritin 1150 ng/mL (15-15 0) H 04/21/21 04:37 Total Bilirubin 0.2 mg/dL (0.15-1 .2) 04/21/21 04:37 AST 34 U/L (0-32) H 04/21/21 04:37 ALT 19 U/L (0-33) 04/21/21 04:37 Alkaline Phosphata se 75 IU/L (35-105) 04/21/21 04:37 Lactate Dehydrogen ase 807 U/L (135-214) H 04/21/21 04:37 Creatine Kinase 101 U/L (26-192) 04/17/21 15:42 Troponin T Gen 5 n g/L 7 ng/L (0-10) 04/19/21 06:52 Troponin T Baselin e 8 ng/L (0-10) 04/21/21 11:45 Troponin T 120 Min [place] 7.68 ng/L (0-10) 04/21/21 14:27 Delta Troponin T -0.32 ABS# (0-10) L 04/21/21 14:27 C-Reactive Protein 99.7 mg/L (0.0-4. 9) H 04/21/21 04:37 NT-Pro-B Natriuret Pep 344 pg/mL (0-125) H 04/18/21 09:30 Total Protein 6.0 g/dL (6.6-8.7 ) L 04/21/21 04:37 Albumin 2.6 g/dL (3.5-5.2 ) L 04/21/21 04:37 Globulin 3.4 g/dL (1.3-4.6 ) 04/21/21 04:37 Procalcitonin 0.11 ng/mL (0-0.5 ) 04/21/21 04:37 Urine Color Yellow (Yellow) 04/20/21 08:45 Urine Appearance Clear (CLEAR) 04/20/21 08:45 Urine pH 5 (5-7) 04/20/21 08:45 Ur Specific Gravit y 1.020 (1.005-1.0 30) 04/20/21 08:45 Urine Protein 3+ (Negative) H 04/20/21 08:45 Urine Glucose (UA) Trace (Normal) H 04/20/21 08:45 Urine Ketones 1+ (Negative) H 04/20/21 08:45 Urine Blood Neg (Negative) 04/20/21 08:45 Urine Nitrate Negative (Negati ve) 04/20/21 08:45 Urine Bilirubin Neg (Negative) 04/20/21 08:45 Urine Urobilinogen Norm mg/dL (Negat chapito) 04/20/21 08:45 Ur Leukocyte Mariya ase Negative (Negati ve) 04/20/21 08:45 Ur Random Sodium < 10 mmol/L 04/20/21 08:45 Influenza Type A A g Negative (Negati ve) 04/17/21 23:22 Influenza Type B A g Negative (Negati ve) 04/17/21 23:22 SARS-CoV-2 Ag (Rap id) Positive (Negati ve) H 04/17/21 23:50 Impressions Chest X-Ray 04/21/21 08:18 Impression: 1. Slight decrease in bilateral pulmonary opacities. 2. No change in position of multiple tubes. Micro: Micro: Microbiology 04/21/21 08:55 MRSA Culture - Fin al Nose 04/21/21 11:45 Blood Culture - Pr eliminary Blood SPECIMEN [facility] 04/21/21 11:48 Blood Culture - Pr eliminary Blood SPECIMEN [facility] [place] A&P Assessment and plan (1) Acute respiratory failure with hypoxia: Status: Acute (2) Pneumonia due to COVID-19 virus: Status: Acute (3) Acute respiratory distress syndrome (ARDS) due to 2019 novel coronavirus: Status: Acute (4) Obesity: Status: Acute (5) Gout: Status: Acute (6) Diabetes: Status: Acute (7) Hypertension: Status: Acute #Acute hypoxic respiratory failure secondary to ARDS due to COVID-19 pneumonia #Type 2 diabetes mellitus-on scale coverage #Hypertension-Home medication losartan #gout on allopurinol #Morbid obesity with BMI 39 -outside Covid test + 04/14/2021: Covid rapid antigen + 04/17/2021 -Multiple family members positive for Covid; recently lost her mother and sister due to Covid 19 pneumonia and another sister admitted to ICU for COVID-19 pneumonia -Chest x-ray 04/21/2021:1. Slight decrease in bilateral pulmonary opacities. -No fever spikes since admission, Normal white count, Low procalcitonin 0.12 -S/p intubated 04/20/2021 and currently on CMV 400/18/12/80 5% saturating 94%, P plat 35 P peak 36 -Reduce tidal volume to 352 given low tidal volume ventilation and P plat improved to 30 and PEEP 32 -Sedated with propofol 15, fentanyl 50, Versed 4 -ABG 04/21/2021: 7.3 8/47/71/20 8/93% on FiO2 90% CMV -Ferritin 1250> 1612> 1150; CRP 53>97> 55 > 99; D-dimer 0.87; LDH 807 -Monitor inflammatory markers every 48 hours -Currently on 5-day protocol remdesivir and on dexamethasone 6 mg IVP daily - S/P 1 dose of Tocilizumab 04/20/2021 -Also covered with Rocephin and azithromycin started 04/17/2021-to complete 5 days- -On DuoNeb every 4 hour scheduled inhalation and Pulmicort 0.5 twice daily inhalation -Encourage incentive spirometry and flutter valve and out of bed to chair once extubated -Elevated LFTs-likely secondary to COVID-19 pneumonia - improving -Sugars moderately controlled controlled-on Lantus 10 units at bedtime and scale coverage -increased Lantus to 14 units -Tube feeding is 10 hours/h, bowel regimen started on senna docusate at bedtime -I/O/N+2.5 L since admission, last 24 hours patient is +1.3 L; UOP since morning 250 cc over 8 hours, given 1 dose Lasix 20 mg to keep I/O net negative to even and prevent fluid overload -monitor electrolytes and correct to keep K > 3.6 and Mg > 2 -Lovenox 40 daily for DVT prophylaxis -On duloxetine 30 mg p.o. twice daily for depression -Continue close clinical monitoring of clinical condition, respiratory status with saturations and hemodynamics -Full code -Prognosis-guarded Recommendations conveyed to hospitalist, RN, RT covering the patient Consult Attestations Medical Necessity Statement: Acute hypoxemic respiratory failure secondary to ARDS due to COVID-19 pneumonia. Currently intubated and sedated requiring high FiO2. Needs close ICU monitoring for respiratory status, hemodynamics and fluid status Time Spent in Patient Care: Greater than 35 minutes (>than 50% of time spent in counselling and/or direct pt care on unit). Critical Care Time: The high probability of a clinically significant, sudden or life threatening deterioration of the patient's [respiratory, endocrine] system(s) required my full and direct attention, intervention and personal management. The critical care time is as shown. This time is in addition to time spent performing any reported procedures but includes the following: [x] Data and vital sign review and interpretation [x] Patient assessment, examination and intervention [x] Documentation [x] Medication orders and management Critical Care Time (min): 60 Coding Level of Care Code New Pt Acute Shoeshiner for Chg Fwd Patient Type New History Comprehensive Exam Comprehensive Medical Decision Making High Complexity Diagnoses Acute respiratory failure with hypoxia J96.01 Pneumonia due to COVID-19 virus U07.1; J12.82 Acute respiratory distress syndrome (ARDS) due to 2019 novel coronavirus U07.1; J80 Obesity E66.9 Gout M10.9 Diabetes E11.9 Hypertension I10 Time Spent (min) 60
[2021-04-21 15:23] LABS: Troponin 5 2HR 7.68 ng/L (0-10)
[2021-04-21 15:28] LABS: Troponin 5 2HR Delta -0.32 ABS# (0-10)
[2021-04-21 15:58] LABS: Osmolality Urine 808 mOsm/kg (50-1200)
[2021-04-21 16:31] LABS: Glucose Point of Care 209 mg/dL (70-110)
[2021-04-21] MEDS: remdesivir 100 MG in sodium chloride 0.9% (100 ml) 100 ML IV (16:49)
--- NOTE | 2021-04-21 17:16 | PC.NURSE ---
1800 meds given early in order to consolidate care and limit exposure.
[2021-04-21] MEDS: dexamethasone 4 mg/mL INJ 6 MG IVP (17:48)
--- NOTE | 2021-04-21 18:31 | PC.NURSE ---
Versed increased to 4mg/min d/t pt breathing over vent and desatting, fentanyl at 50mcg/h and propofol at 15mcg/kg/min. HR WNL. No s/s of pain or SOB. Will monitor.
[2021-04-21 19:51] LABS: Troponin 5 6HR 7.22 ng/L (0-10)
[2021-04-21 19:54] LABS: Troponin 5 6HR Delta -0.78 ng/L (0-12)
[2021-04-21] MEDS: budesonide 0.5 mg/2 mL Neb INHALATION (20:02)
[2021-04-21 20:04] LABS: Glucose Point of Care 237 mg/dL (70-110)
[2021-04-21] MEDS: sennosides-docusate Tablet 1 TAB PO (22:07)
[2021-04-21] MEDS: insulin glargine 100 units/1 mL 10 UNIT SUBCUT (22:07)
[2021-04-21] MEDS: cefTRIAXone 1,000 MG in sodium chloride 0.9% (plus) 100 ML 100 MG IV (22:08)
[2021-04-21] MEDS: enoxaparin 40 mg/0.4 mL Syringe SUBCUT (22:08)
--- NOTE | 2021-04-21 23:22 | PHA.FALL ---
A Pharmacy Consult Was Conducted For Kayli Arellano Due To: Gottlieb Fall Scale Risk Level: High Fall Risk On 04/21/21 20:00 And A Medication Fall Risk Score Greater Than 10. The Recommendations Are As Follows: Gabapentin 1,2,4,5,6,7,8,10 duloxetine 1,4,7 losartan 1,3,4,11 Medications which cause/contribute to: 1 = sedation/fatigue/lethargy 2 = decreased alertness 3 = postural/orthostatic hypotension 4 = dizziness 5 = decreased neuromuscular function/ataxia 6 = decreased memory/cognitive impairment 7 = blurred vision 8 = confusion 9 = arrhythmias 10 = syncope 11 = anemia
[2021-04-22] VITALS (111 sets, daily range): BP systolic 91–135; BP diastolic 44–79; PULSE 62–86; RESP 18–23; TEMP 36.6–37.1; O2SAT 86–98; BMI 39.3
[2021-04-22] MEDS: azithromycin 500 MG in sodium chloride 0.9% 250 ML 250 MG IV (00:18)
[2021-04-22] MEDS: azithromycin 500 mg SDV (00:30)
[2021-04-22] MEDS: ipratropium-albuterol 3 mL Neb INHALATION ×6 (03:21→23:35)
[2021-04-22 06:46] LABS: Basophils # 0.1 10^3/uL (0.0-0.1); Basophils % 0.6 %; Hematocrit 37.8 % (37.0-47.0); Hemoglobin 12.1 g/dL (11.5-15.3); Lymphocytes % 8.4 %; Mean Corpuscular Volume 96.9 fL (81-99); Mean Platelet Volume 9.7 fL (7.4-10.4); Monocytes # 0.7 10^3/uL (0.2-0.9); Monocytes % 5.9 %; Neutrophils # 9.74 10^3/uL (1.8-7.7); Neutrophils % 80.1 %; Nucleated Red Blood Cells % 0 %; Platelet Count 478 10^3/cmm (130-400); Red Cell Distribution Width 12.8 % (12.1-15.1); White Blood Count 12.2 10^3/uL (4.0-10.0)
[2021-04-22 07:03] LABS: Alanine Aminotransferase 17 U/L (0-33); Albumin Level 2.9 g/dL (3.5-5.2); Alkaline Phosphatase 91 IU/L (35-105); Anion Gap 14.2 (5-19); Aspartate Amino Transferase 22 U/L (0-32); Blood Urea Nitrogen 29 mg/dL (8-23); Calcium 7.8 mg/dL (8.5-10.5); Carbon Dioxide 26 mmol/L (22-29); Chloride 99 mmol/L (98-107); Globulin 3.6 g/dL (1.3-4.6); Glomerular Filtration Rate 63.4 mL/min (90-130); Glucose 244 mg/dL (65-115); Magnesium 2.4 mg/dL (1.7-2.3); Osmolality Calculated 294 mOsm/kg (285-295); Phosphorus 3.7 mg/dL (2.5-4.5); Potassium 4.2 mmol/L (3.5-5.1); Sodium 135 mmol/L (136-145); Total Bilirubin 0.2 mg/dL (0.15-1.2); Total Protein 6.5 g/dL (6.6-8.7)
[2021-04-22 07:10] LABS: Glucose Point of Care 225 mg/dL (70-110)
[2021-04-22] MEDS: propofol 1,000 MG/100 ML INJ 9.31 MG IV ×2 (07:15→15:16)
--- NOTE | 2021-04-22 07:22 | PC.NURSE ---
Report received from [facility] CANSECO. Pt lying in bed with eyes closed. Does not follow commands. Fentanyl at 50mcg/h, propofol at 15mcg/kg/min, and versed at 4mg/miin. Vent settings per RT flowsheet. Slight gurgling noted, will notify MD. Oral care performed. Repositioned per staff Q2H and PRN. Blount cath draining clear adwoa urine to BSD. VSS. Offgoing nurse reported that tube feeds were not tolerated with high residuals noted. Will make MD aware. Will monitor
[2021-04-22 07:25] LABS: Slide Review Slide Review Perform
[2021-04-22] MEDS: budesonide 0.5 mg/2 mL Neb INHALATION ×2 (08:09→19:35)
[2021-04-22] MEDS: duloxetine 30 mg Capsule PO ×2 (08:25→17:54)
[2021-04-22] MEDS: gabapentin 400 mg Capsule PO ×2 (08:25→17:54)
[2021-04-22] MEDS: cholecalciferol (vitamin D3) 1,000 unit Tablet 2000 UNIT PO (08:25)
[2021-04-22] MEDS: ascorbic acid 500 mg Tablet PO ×2 (08:25→17:54)
[2021-04-22] MEDS: zinc gluconate 50 mg Tablet PO (08:26)
[2021-04-22] MEDS: allopurinol 100 mg Tablet PO (08:26)
[2021-04-22] MEDS: famotidine 20 mg Tablet PO ×2 (08:26→17:54)
--- NOTE | 2021-04-22 10:52 | PC.NURSE ---
Residual of 50ml noted earlier, feedings restarted. At this time, pump was alarming and 120 residual noted. Feedings held at this time. Will reassess.
--- NOTE | 2021-04-22 11:03 | P.PN_ITS ---
Subjective Subjective: Interval history: -Still intubated and sedated on Versed 4, propofol 15, fentanyl 50 -Patient was restless while attempting to titrate down Versed; so put back on 4 mg/h -High gastric residual, held NG feeding overnight, restart-the morning at 12 mL/h -No BM yet -Saturating 95% on FiO2 85% and PEEP at 12; it down to target saturation greater than 88 -Labs and imaging reviewed and pertinent findings incorporated in assessment and plan Medications: Reviewed: Yes Vitals/I&O/Wt Last Vital Signs Temp 98.7 F 04/22/21 08:00 Pulse 64 04/22/21 10:00 Resp 20 H 04/22/21 10:48 BP 105/56 04/22/21 10:00 Pulse Ox 93 04/22/21 10:48 04/21/21 04/22/21 04/22/21 22:59 06:59 14:59 Intake Total 575.475 / 1282.295 785 / 2067.295 Output Total 1195 / 1195 875 / 2070 200 / 200 Balance -619.525 / 87.295 -90 / -2.705 -200 / -200 Weight last 48 hrs Weight 229 lb 3.2 oz Weight 229 lb 3.2 oz Weight 228 lb Physical Exam Narrative: EXAM NARRATIVE: General: lying in bed, sedated and intubated. HEENT:NCAT, PERRLA, EOMI Neck: Supple Lungs: Mild diffuse crackles bilaterally, good air entry Heart: s1/s2, RRR Abd: soft, NT, ND, BS + Normoactive Extremities: No edema ENVIRONMENTAL ANALYST: sedated and limited ENVIRONMENTAL ANALYST exam possible. SKIN: no rash LDA: # CVC: Right IJ placed 04/20/2021 # Blount: 04/20/2021 Urinary Catheter Management^: Blount: Cath Placed During This Visit: yes Reason for Continuing Indwelling Catheter: Accurate Measurement of Urinary Output in Critically Ill Patients Urinary Catheter Date of Insertion: 04/20/21 Urinary Catheter Time of Insertion: 08:45 Data : 04/22/21 05:55 04/22/21 05:55 Other Labs: Laboratory Results WBC 12.2 10^3/uL (4.0-10.0) H 04/22/21 05:55 RBC 3.90 10^6/uL (4.1-5.3) L 04/22/21 05:55 Hgb 12.1 g/dL (11.5-15.3) 04/22/21 05:55 Hct 37.8 % (37.0-47.0) 04/22/21 05:55 MCV 96.9 fL (81-99) 04/22/21 05:55 MCH 31.0 pg (28.0-34.0) 04/22/21 05:55 MCHC 32.0 g/dL (30.0-36.0) 04/22/21 05:55 RDW 12.8 % (12.1-15.1) 04/22/21 05:55 Plt Count 478 10^3/cmm (130-400) H 04/22/21 05:55 MPV 9.7 fL (7.4-10.4) 04/22/21 05:55 Neut % (Auto) 80.1 % 04/22/21 05:55 Lymph % (Auto) 8.4 % 04/22/21 05:55 Ballard % (Auto) 5.9 % 04/22/21 05:55 Eos % (Auto) 0.0 % 04/22/21 05:55 Baso % (Auto) 0.6 % 04/22/21 05:55 Neut # (Auto) 9.74 10^3/uL (1.8-7.7) H 04/22/21 05:55 Lymph # (Auto) 1.0 10^3/uL (0.8-4.8) 04/22/21 05:55 Ballard # (Auto) 0.7 10^3/uL (0.2-0.9) 04/22/21 05:55 Eos # (Auto) 0.0 10^3/uL (0.0-0.8) 04/22/21 05:55 Baso # (Auto) 0.1 10^3/uL (0.0-0.1) 04/22/21 05:55 Nucleated RBC % (auto) 0 % 04/22/21 05:55 Nucleated RBCs # 0.0 /100WBC 04/22/21 05:55 Fibrinogen 486 mg/dL (174-498) 04/20/21 04:52 D-Dimer 0.87 ug/mIFEU (0-0.59) H 04/21/21 11:45 Specimen Type Arterial 04/21/21 03:44 Sample Site Radial, right 04/21/21 03:44 ABG pH 7.38 (7.35-7.45) 04/21/21 03:44 ABG pCO2 47.7 mmHg (35-45) H 04/21/21 03:44 ABG pO2 71.0 mmHg (80.0-100.0) L 04/21/21 03:44 ABG HCO3 28.1 mmol/L (22-26) H 04/21/21 03:44 ABG O2 Saturation 92.3 04/20/21 17:48 ABG Base Excess 2.1 mmol/L (-2.0-2.0) H 04/21/21 03:44 Morro Test Pos 04/21/21 03:44 A-a O2 Gradient 75.2 mmHg (5-10) H 04/20/21 17:48 Hematocrit 48.6 % (37-47) H 04/21/21 03:44 Hgb O2 Saturation 91.0 % (95-100) L 04/20/21 17:48 Carboxyhemoglobin 0.6 %THgb (0.4-20.1) 04/20/21 17:48 Methemoglobin 0.8 % (0.4-1.5) 04/20/21 17:48 Total Hemoglobin 12.9 g/dL (12-16) 04/20/21 17:48 Sodium 134.0 mmol/L (131-143) 04/20/21 17:48 Potassium 4.3 mmol/L (3.5-5.0) 04/20/21 17:48 Glucose 212.0 mg/dL (70-115) H 04/20/21 17:48 Ionized Calcium 1.1 mmol/L (1.1-1.4) 04/20/21 17:48 O2 Delivery Device Vent 04/21/21 03:44 O2 Liters/Min 60.0 % 04/19/21 13:41 FiO2 90.0 % 04/21/21 03:44 Tidal Volume 0.40 04/21/21 03:44 PEEP 12.0 cmH20 04/21/21 03:44 Motors And Generators Inspector ID Rob 04/21/21 03:44 Sodium 135 mmol/L (136-145) L 04/22/21 05:55 Potassium 4.2 mmol/L (3.5-5.1) 04/22/21 05:55 Chloride 99 mmol/L (98-107) 04/22/21 05:55 Carbon Dioxide 26 mmol/L (22-29) 04/22/21 05:55 Anion Gap 14.2 (5-19) 04/22/21 05:55 BUN 29 mg/dL (8-23) H 04/22/21 05:55 Creatinine 0.9 mg/dL (0.5-0.9) 04/22/21 05:55 GFR Calculation 63.4 mL/min (90-130) L 04/22/21 05:55 Glucose 244 mg/dL (65-115) H 04/22/21 05:55 POC Glucose 225 mg/dL (70-110) H 04/22/21 07:02 Serum Osmolality 286 mOsm/kg (278-305) 04/19/21 06:52 Calculated Osmolality 294 mOsm/kg (285-295) 04/22/21 05:55 Lactic Acid 2.2 mmol/L (0.5-2.2) 04/17/21 15:42 Lactic Acid (Sepsis) 1.0 mmol/L (0.5-2.2) 04/17/21 19:15 Calcium 7.8 mg/dL (8.5-10.5) L 04/22/21 05:55 Phosphorus 3.7 mg/dL (2.5-4.5) 04/22/21 05:55 Magnesium 2.4 mg/dL (1.7-2.3) H 04/22/21 05:55 Ferritin 1150 ng/mL (15-150) H 04/21/21 04:37 Total Bilirubin 0.2 mg/dL (0.15-1.2) 04/22/21 05:55 AST 22 U/L (0-32) 04/22/21 05:55 ALT 17 U/L (0-33) 04/22/21 05:55 Alkaline Phosphatase 91 IU/L (35-105) 04/22/21 05:55 Lactate Dehydrogenase 807 U/L (135-214) H 04/21/21 04:37 Creatine Kinase 101 U/L (26-192) 04/17/21 15:42 Troponin T Gen 5 ng/L 7 ng/L (0-10) 04/19/21 06:52 Troponin T Baseline 8 ng/L (0-10) 04/21/21 11:45 Troponin T 120 Minute 7.68 ng/L (0-10) 04/21/21 14:27 Delta Troponin T -0.32 ABS# (0-10) L 04/21/21 14:27 Troponin T Hi Sens 6Hr 7.22 ng/L (0-10) 04/21/21 17:58 Troponin T Hi Sens 6Hr Delta -0.78 ng/L (0-12) L 04/21/21 17:58 C-Reactive Protein 99.7 mg/L (0.0-4.9) H 04/21/21 04:37 NT-Pro-B Natriuret Pep 344 pg/mL (0-125) H 04/18/21 09:30 Total Protein 6.5 g/dL (6.6-8.7) L 04/22/21 05:55 Albumin 2.9 g/dL (3.5-5.2) L 04/22/21 05:55 Globulin 3.6 g/dL (1.3-4.6) 04/22/21 05:55 Procalcitonin 0.11 ng/mL (0-0.5) 04/21/21 04:37 Urine Color Yellow (Yellow) 04/20/21 08:45 Urine Appearance Clear (CLEAR) 04/20/21 08:45 Urine pH 5 (5-7) 04/20/21 08:45 Ur Specific [place] 1.020 (1.005-1.030) 04/20/21 08:45 Urine Protein 3+ (Negative) H 04/20/21 08:45 Urine Glucose (UA) Trace (Normal) H 04/20/21 08:45 Urine Ketones 1+ (Negative) H 04/20/21 08:45 Urine Blood Neg (Negative) 04/20/21 08:45 Urine Nitrate Negative (Negative) 04/20/21 08:45 Urine Bilirubin Neg (Negative) 04/20/21 08:45 Urine Urobilinogen Norm mg/dL (Negative) 04/20/21 08:45 Ur Leukocyte Esterase Negative (Negative) 04/20/21 08:45 Urine Osmolality 808 mOsm/kg (50-1200) 04/20/21 08:45 Ur Random Sodium < 10 mmol/L 04/20/21 08:45 Influenza Type A Ag Negative (Negative) 04/17/21 23:22 Influenza Type B Ag Negative (Negative) 04/17/21 23:22 SARS-CoV-2 Ag (Rapid) Positive (Negative) H 04/17/21 23:50 Impressions Chest X-Ray 04/21/21 08:18 Impression: 1. Slight decrease in bilateral pulmonary opacities. 2. No change in position of multiple tubes. Micro: Microbiology 04/21/21 08:55 MRSA Culture - Final Nose 04/21/21 11:45 Blood Culture - Preliminary Blood SPECIMEN COLLECTED 04/21/21 11:48 Blood Culture - Preliminary Blood SPECIMEN COLLECTED A&P Assessment and plan (1) Acute respiratory failure with hypoxia: Status: Acute (2) Pneumonia due to COVID-19 virus: Status: Acute (3) Acute respiratory distress syndrome (ARDS) due to 2019 novel coronavirus: Status: Acute (4) Obesity: Status: Acute Qualifiers: Obesity classification: adult class 2 (BMI 35 - 39.9) Body mass index: BMI 39.0-39.9 Serious obesity comorbidity presence: unspecified whether serious comorbidity present Obesity type: unspecified obesity type Qualified Code(s): E66.9 - Obesity, unspecified; Z68.39 - Body mass index [BMI] 39.0-39.9, adult (5) Gout: Status: Acute Qualifiers: Gout site: unspecified site Gout etiology: unspecified cause C hronicity: unspecified Qualified Code(s): M10.9 - Gout, unspecified (6) Diabetes: Status: Acute Qualifiers: Diabetes mellitus type: type 2 Diabetes mellitus residential insulin use: unspecified superintendent terminal insulin use status Diabetes mellitus complication status: with other specified complication Qualified Code(s): E11.69 - Type 2 diabetes mellitus with other specified complication (7) Hypertension: Status: Acute Qualifiers: Hypertension type: unspecified Qualified Code(s): I10 - Essential (primary) hypertension #Acute hypoxic respiratory failure secondary to ARDS due to COVID-19 pneumonia #Type 2 diabetes mellitus-on scale coverage #Hypertension-Home medication losartan #gout on allopurinol #Morbid obesity with BMI 39 -outside Covid test + 04/14/2021: Covid rapid antigen + 04/17/2021 -Multiple family members positive for Covid; recently lost her mother and sister due to Covid 19 pneumonia and another sister admitted to ICU for COVID-19 pneumonia -Chest x-ray 04/21/2021:1. Slight decrease in bilateral pulmonary opacities. -No fever spikes since admission, Normal white count, Low procalcitonin 0.12 -S/p intubated 04/20/2021 and currently on CMV 400/18/12/85% saturating 94%, P plat 35 P peak 36 -Reduce tidal volume to 350 given low tidal volume ventilation and P plat improved to 30 and PEEP 32 -Sedated with propofol 15, fentanyl 50, Versed 4 -ABG 04/21/2021: 7.3 8/47/71/20 8/93% on FiO2 90% CMV -Ferritin 1250> 1612> 1150; CRP 53>97> 55 > 99; D-dimer 0.87; LDH 807 -Monitor inflammatory markers every 48 hours -Currently on 5-day protocol remdesivir and on dexamethasone 6 mg IVP daily - S/P 1 dose of Tocilizumab 04/20/2021 -Also covered with Rocephin and azithromycin started 04/17/2021-to complete 5 days- -On DuoNeb every 4 hour scheduled inhalation and Pulmicort 0.5 twice daily inhalation -Encourage incentive spirometry and flutter valve and out of bed to chair once extubated -Elevated LFTs-likely secondary to COVID-19 pneumonia - improved -Sugars moderately controlled controlled-on Lantus 10 units at bedtime and scale coverage -increased Lantus to 15 units -Tube feeding is 10 hours/h, bowel regimen started on senna docusate at bedtime -I/O/N+1.6 L since admission, last 24 hours patient is net even; UOP since morning 250 cc over 3 hours -Hold Lasix for today -monitor electrolytes and correct to keep K > 3.6 and Mg > 2 -Lovenox 40 daily for DVT prophylaxis -On duloxetine 30 mg p.o. twice daily for depression -Continue close clinical monitoring of clinical condition, respiratory status with saturations and hemodynamics -Full code -Prognosis-guarded Recommendations conveyed to hospitalist, RN, RT covering the patient Attestations Medical Necessity Statement*: Acute hypoxic respiratory failure secondary failure due to COVID-19 pneumonia, currently intubated and mechanically ventilated on 85% FiO2 and high PEEP, requires close ICU monitoring for respiratory status Time Spent in Patient Care: Greater than 35 minutes (>than 50% of time spent in counselling and/or direct pt care on unit) . Critical Care Time: The high probability of a clinically significant, sudden or life threatening deterioration of the patient's [respiratory endocrine] system(s) required my full and direct attention, intervention and personal management. The critical care time is as shown. 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 Type Established History Comprehensive Exam Comprehensive Medical Decision Making High Complexity Diagnoses Acute respiratory failure with hypoxia J96.01 Pneumonia due to COVID-19 virus U07.1; J12.82 Acute respiratory distress syndrome (ARDS) due to 2019 novel coronavirus U07.1; J80 Obesity E66.9; Z68.39 Obesity classification: adult class 2 (BMI 35 - 39.9) Body mass index: BMI 39.0-39.9 Serious obesity comorbidity presence: unspecified whether serious comorbidity present Obesity type: unspecified obesity type Gout M10.9 Gout site: unspecified site Gout etiology: unspecified cause Chronicity: unspecified Diabetes E11.69 Diabetes mellitus type: type 2 Diabetes mellitus superintendent terminal insulin use: unspecified residential insulin use status Diabetes mellitus complication status: with other specified complication Hypertension I10 Hypertension type: unspecified Time Spent (min) 60
[2021-04-22 11:18] LABS: Glucose Point of Care 199 mg/dL (70-110)
--- NOTE | 2021-04-22 15:18 | P.PN_ITS ---
Subjective Subjective: Interval history: Remains intubated and sedated. Patient remains intubated and sedated on propofol of 15, fentanyl 75, and midazolam of 4mg Medications: Reviewed: Yes Vitals/I&O/Wt Last Vital Signs Temp 98.2 F 04/22/21 11:00 Pulse 66 04/22/21 14:00 Resp 18 04/22/21 13:32 BP 128/64 04/22/21 14:00 Pulse Ox 92 04/22/21 14:00 04/22/21 04/22/21 04/22/21 06:59 14:59 22:59 Intake Total 785 / 2067.295 492.717 / 492.717 Output Total 875 / 2070 600 / 600 Balance -90 / -2.705 -107.283 / -107.283 Weight last 48 hrs Weight 103.963 kg Weight 103.963 kg Physical Exam Const: GENERAL APPEARANCE: disheveled and ill appearing NUTRITIONAL APPEARANCE: overweight ORIENTATION/CONSCIOUSNESS: Yes awake HENMT: COMMON NORMALS: normocephalic, atraumatic, external ears normal and Normal external nose present HEAD & SCALP: normocephalic and atraumatic FACE & SINUS: normal facial exam NOSE: Normal external nose present EXTERNAL EAR: Yes external ears normal MOUTH: Normal oral and palatal mucosa present Eye: COMMON NORMALS: Equal, round and reactive pupils present and conjunctivae normal CONJUNCTIVA: Yes conjunctivae normal PUPIL: Yes Equal, round and reactive pupils present EOM: No EOM abnormal Neck/C-Spine: COMMON NORMALS: Thyroid normal GENERAL: Yes trachea midline, No anterior neck swelling and No lymphadenopathy THYROID: Thyroid normal Resp: AUSCULTATION: crackles (On anterior auscultation of the lungs. ), no wheezes and lung sounds not diminished Cardio: COMMON NORMALS: regular rate and regular rhythm RATE: regular rate RHYTHM: regular rhythm HEART SOUNDS: no click, no gallops, no murmurs and no rubs Extremity: COMMON NORMALS: no clubbing, cyanosis or edema Neuro: JESSICA COMA SCALE: document GCS findings (Patient is intubated) Boykin coma scale eye opening: None Jessica coma scale verbal response: None Jessica coma scale motor response: None Boykin coma scale total score: 3 GAIT: Yes Unable to assess gait MOTOR EXAM: Normal motor muscle tone present throughout Psych: SPEECH: Yes slow MOOD & AFFECT: Yes sad Skin: COMMON NORMALS: no rashes or lesions noted GENERAL SKIN EXAM: no rash es or lesions noted Urinary Catheter Management^: Blount: Cath Placed During This Visit: yes Reason for Continuing Indwelling Catheter: Accurate Measurement of Urinary Output in Critically Ill Patients Urinary Catheter Date of Insertion: 04/20/21 Urinary Catheter Time of Insertion: 08:45 Data : 04/22/21 05:55 04/22/21 05:55 Micro: Microbiology 04/21/21 11:45 Blood Culture - Preliminary Blood NEGATIVE TO DATE 04/21/21 11:48 Blood Culture - Preliminary Blood NEGATIVE TO DATE 04/21/21 08:55 MRSA Culture - Final Nose A&P Assessment and plan (1) Acute respiratory failure with hypoxia: Status: Acute (2) Pneumonia due to COVID-19 virus: Status: Acute (3) Diabetes: Status: Acute Qualifiers: Diabetes mellitus type: type 2 Diabetes mellitus skilled nursing insulin use: unspecified skilled nursing insulin use status Diabetes mellitus complication status: with other specified complication Qualified Code(s): E11.69 - Type 2 diabetes mellitus with other specified complication (4) Hypertension: Status: Acute Qualifiers: Hypertension type: unspecified Qualified Code(s): I10 - Essential (primary) hypertension (5) Gout: Status: Acute Qualifiers: Gout site: unspecified site Gout etiology: unspecified cause Maintenance Machine Repairer nicity: unspecified Qualified Code(s): M10.9 - Gout, unspecified (6) Obesity: Status: Acute Qualifiers: Obesity type: unspecified obesity type Obesity classification: adult class 2 (BMI 35 - 39.9) Serious obesity comorbidity presence: unspecified whether serious comorbidity present Body mass index: BMI 39.0-39.9 Qualified Code(s): E66.9 - Obesity, unspecified; Z68.39 - Body mass index [BMI] 39.0-39.9, adult Ms. Arellano is a 60yo woman w/ HTN, non-IDDM2, Gout, who was diagnosed with Covid on 04/14/2021 and presented to the ED on 04/17/2021 with complaints of worsening generalized weakness, chills, myalgias, nausea, vomiting, cough, dyspnea, and intermittent fevers. Per documentation, the patient has multiple family members who were found to be sick with Covid, and her mother at home because of Covid. Her CXR in the ED showed groundglass opacities consistent with multilobar pneumonia. She was admitted for acute hypoxic respiratory failure caused by multilobar viral pneumonia COVID-19 infection. Neuro/Psych - On Propfol, Fentanyl, Versed drip & wrist restraints. CV # HTN: Held Losartan Resp #Acute hypoxic/hypercapneic respiratory failure # Multilobar viral pneumonia # COVID-19 infection - S/p Remdesivir, 5 days of Ceftriaxone, 6 days of Azithromycin. Continue Dexamethasone, Zinc, Vit D po, famotidine. Gave a dose of Tocilizumab on 04/21/2021. - Monitor inflammatory markers q48h. Titrate O2. GI - Consult Nutrition for tube feeds. - On famotidine for GI ppx # Constipation: Gave a dose of Magnesium citrate. Lactulose daily ordered. Renal #Hyponatremia - Likely hypovolemia - Multifactorial: Pre-renal vs SIADH vs diuretics given on admission in the setting of poor po intake Endo # non-IDDM2 - Accuchecks ordered AC/HS. Continue to monitor. On insulin glargine 15 units nightly with medium dose sliding scale insulin. MSK # Gout? - On allopurinol, but a low dose. Heme - No acute issues DVT ppx: Lovenox. Additional A&P Information CODE STATUS: Full code DVT prophylaxis: On Lovenox Disposition: Discharge to home Attestations Medical Necessity Statement*: Patient requires continued hospitalization because she remains intubated and sedated Coding Level of Care Code Acute Technical Asst for [facility] Diagnoses Acute respiratory failure with hypoxia J96.01 Pneumonia due to COVID-19 virus U07.1; J12.82 Diabetes E11.69 Diabetes mellitus type: type 2 Diabetes mellitus skilled nursing insulin use: unspecified skilled nursing insulin use status Diabetes mellitus complication status: with other specified complication Hypertension I10 Hypertension type: unspecified Gout M10.9 Gout site: unspecified site Gout etiology: unspecified cause Chronicity: unspecified Obesity E66.9; Z68.39 Obesity type: unspecified obesity type Obesity classification: adult class 2 (BMI 35 - 39.9) Serious obesity comorbidity presence: unspecified whether serious comorbidity present Body mass index: BMI 39.0-39.9
[2021-04-22 16:11] LABS: Glucose Point of Care 194 mg/dL (70-110)
[2021-04-22] MEDS: dexamethasone 4 mg/mL INJ 6 MG IVP (17:54)
--- NOTE | 2021-04-22 18:26 | PC.NURSE ---
Adjusted FIO2 up to 80% d/t sats in mid 80's. Sedation all remains the same. VSS except O2 sat.
[2021-04-22] MEDS: magnesium citrate Btl 296 mL PO (19:44)
[2021-04-22] MEDS: insulin glargine 100 units/1 mL 15 UNIT SUBCUT (20:09)
[2021-04-22] MEDS: enoxaparin 40 mg/0.4 mL Syringe SUBCUT (21:46)
[2021-04-23] VITALS (77 sets, daily range): BP systolic 113–148; BP diastolic 65–83; PULSE 59–82; RESP 18–27; TEMP 36.3–36.7; O2SAT 91–98; BMI 38.3
[2021-04-23 00:06] LABS: Glucose Point of Care 192 mg/dL (70-110)
[2021-04-23] MEDS: propofol 1,000 MG/100 ML INJ 9.31 MG IV ×3 (01:37→21:02)
[2021-04-23] MEDS: ipratropium-albuterol 3 mL Neb INHALATION ×5 (03:10→20:48)
--- NOTE | 2021-04-23 04:00 | XRR_ITS ---
PROCEDURE INFORMATION: Exam: XR Chest Exam date and time: 04/23/2021 4:00 AM Age: 61 years old Clinical indication: Patient HX: F/u covid pneumonia. Intubated. ; Additional info: Acute hypoxic/hypercapnic respiratory failure TECHNIQUE: Imaging protocol: XR of the chest. Views: 1 view. COMPARISON: CR XR chest 1V portable [id number] 04/21/2021 8:31 AM FINDINGS: Tubes, catheters and devices: There is an endotracheal tube with the tip approximately 5 cm above the smiley. There is an enteric tube extending down into the stomach. There is a right jugular central line with the tip at/near the superior cavoatrial junction. Lungs: Bilateral airspace disease continues, compatible with pneumonia, slightly worse in the interval. Pleural spaces: No pleural effusion or pneumothorax. Heart/Mediastinum: The left heart border is silhouetted out. Difficult to determine if the heart is enlarged. Mediastinal contours are unchanged. Diaphragm: Previously demonstrated elevated left hemidiaphragm. Bones/joints: There are multilevel bridging osteophytes in the spine. XR/XR chest 1V portable [id number] IMPRESSION: 1. Line and tubes as described. 2. Slight worsening of bilateral pneumonia.
[2021-04-23] MEDS: aspirin 81 mg EC Tablet PO (05:09)
[2021-04-23 06:02] LABS: Hematocrit 37.1 % (37.0-47.0); Mean Corpuscular HGB Conc 32.3 g/dL (30.0-36.0); Mean Corpuscular Hemoglobin 31.1 pg (28.0-34.0); Mean Corpuscular Volume 96.1 fL (81-99); Mean Platelet Volume 9.5 fL (7.4-10.4); Platelet Count 605 10^3/cmm (130-400); Red Blood Count 3.86 10^6/uL (4.1-5.3); Red Cell Distribution Width 12.9 % (12.1-15.1); White Blood Count 14.2 10^3/uL (4.0-10.0)
[2021-04-23 06:14] LABS: Alanine Aminotransferase 18 U/L (0-33); Albumin Level 2.9 g/dL (3.5-5.2); Alkaline Phosphatase 76 IU/L (35-105); Anion Gap 11.5 (5-19); Aspartate Amino Transferase 19 U/L (0-32); Blood Urea Nitrogen 32 mg/dL (8-23); Calcium 7.9 mg/dL (8.5-10.5); Carbon Dioxide 28 mmol/L (22-29); Chloride 99 mmol/L (98-107); Globulin 3.4 g/dL (1.3-4.6); Glomerular Filtration Rate 72.4 mL/min (90-130); Glucose 242 mg/dL (65-115); Osmolality Calculated 293 mOsm/kg (285-295); Potassium 4.5 mmol/L (3.5-5.1); Sodium 134 mmol/L (136-145); Total Bilirubin 0.2 mg/dL (0.15-1.2); Total Protein 6.3 g/dL (6.6-8.7)
--- NOTE | 2021-04-23 06:40 | PC.NURSE ---
Shift Summary Patient had an uneventful shift. She remains on the ventilator in VC-AC mode, FiO2-75%, VT-350, RR-18, PEEP-12. Right AC IV site is saline locked at this time. Right central line has Propofol infusing at 15mcg/kg/hr, Versed infusing at 4mg/hr, and Fentanyl infusing at 50 mcg/hr. Cobb sump gastric tube is clamped at this time and feedings have been paused due to residuals being above 300 mls when checked every 2 hours. Gastric content is a dark yellow color. Blount catheter drained 350 mls of clear dark yellow urine all night. No wounds or skin issues are noted at this time.
[2021-04-23 06:47] LABS: Slide Review Slide Review Perform
[2021-04-23 06:51] LABS: Absolute Segmented Neutrophil 11.8 10/cmm (1.6-7.1); Band Neutrophils Absolute 0.6 10^3/cmm (0.0-1.2); Eosinophils 0 %; Giant Platelets Trace; Lymphocytes 8 %; Lymphocytes Absolute 1.1 10^3/cmm (1.2-3.4); Monocytes Absolute 0.3 10^3/cmm (0.1-0.6); Segmented Neutrophils 83 %; Total Cells Counted 100 (0-100)
[2021-04-23 06:52] LABS: Absolute Neutrophil 12.4 10^3/cmm (1.4-6.5); Platelet Estimate Increased (Normal)
[2021-04-23] MEDS: budesonide 0.5 mg/2 mL Neb INHALATION ×2 (07:43→20:48)
[2021-04-23 07:58] LABS: Glucose Point of Care 229 mg/dL (70-110)
[2021-04-23] MEDS: ascorbic acid 500 mg Tablet PO ×2 (08:08→17:39)
[2021-04-23] MEDS: zinc gluconate 50 mg Tablet PO (08:08)
[2021-04-23] MEDS: gabapentin 400 mg Capsule PO ×2 (08:08→17:39)
[2021-04-23] MEDS: allopurinol 100 mg Tablet PO (08:08)
[2021-04-23] MEDS: duloxetine 30 mg Capsule PO ×2 (08:08→17:39)
[2021-04-23] MEDS: lactulose oral liq 20 gm/30 mL UDC PO (08:08)
[2021-04-23] MEDS: famotidine 20 mg Tablet PO ×2 (08:08→17:39)
[2021-04-23 09:33] LABS: D Dimer 1.16 ug/mIFEU (0-0.59)
[2021-04-23 09:56] LABS: NT Pro B Type Natriuretic Pept 161 pg/mL (0-125); Procalcitonin 0.05 ng/mL (0-0.5)
[2021-04-23 10:07] LABS: C Reactive Protein 22.3 mg/L (0.0-4.9); Lactate Dehydrogenase 585 U/L (135-214)
--- NOTE | 2021-04-23 10:39 | P.PN_ITS ---
Subjective Subjective: Interval history: -Patient seen at bedside today morning -FiO2 down to 65% and saturating 92% -Still on Versed 4, propofol 15, fentanyl 50 drips -Plan is to taper down Versed -Monitor input output and if urine output is less can give Lasix 20 mg as needed -Still high gastric residuals-hold feeding Medications: Reviewed: Yes Vitals/I&O/Wt Last Vital Signs Temp 98.1 F 04/23/21 10:00 Pulse 67 04/23/21 10:00 Resp 18 04/23/21 07:44 BP 129/80 04/23/21 10:00 Pulse Ox 94 04/23/21 10:00 04/22/21 04/23/21 04/23/21 22:59 06:59 14:59 Intake Total 210.635 / 703.352 171.359 / 874.711 270.882 / 270.882 Output Total 150 / 750 350 / 1100 Balance 60.635 / -46.648 -178.641 / -225.289 270.882 / 270.882 Weight last 48 hrs Weight 223 lb 7 oz Weight 229 lb 3.2 oz Physical Exam Narrative: EXAM NARRATIVE: General: lying in bed, sedated and intubated. HEENT:NCAT, PERRLA, EOMI Neck: Supple Lungs: Mild diffuse crackles bilaterally, good air entry Heart: s1/s2, RRR Abd: soft, NT, ND, BS + Normoactive Extremities: No edema CARTRIDGE GAUGER: sedated and limited CARTRIDGE GAUGER exam possible. SKIN: no rash LDA: # CVC: Right IJ placed 04/20/2021 # Blount: 04/20/2021 Urinary Catheter Management^: Blount: Cath Placed During This Visit: yes Reason for Continuing Indwelling Catheter: Accurate Measurement of Urinary Output in Critically Ill Patients Urinary Catheter Date of Insertion: 04/20/21 Urinary Catheter Time of Insertion: 08:45 Data : 04/23/21 05:15 04/23/21 05:15 Other Labs: Laboratory Results WBC 14.2 10^3/uL (4.0-10.0) H 04/23/21 05:15 RBC 3.86 10^6/uL (4.1-5.3) L 04/23/21 05:15 Hgb 12.0 g/dL (11.5-15.3) 04/23/21 05:15 Hct 37.1 % (37.0-47.0) 04/23/21 05:15 MCV 96.1 fL (81-99) 04/23/21 05:15 MCH 31.1 pg (28.0-34.0) 04/23/21 05:15 MCHC 32.3 g/dL (30.0-36.0) 04/23/21 05:15 RDW 12.9 % (12.1-15.1) 04/23/21 05:15 Plt Count 605 10^3/cmm (130-400) H 04/23/21 05:15 MPV 9.5 fL (7.4-10.4) 04/23/21 05:15 Neut % (Auto) 80.1 % 04/22/21 05:55 Lymph % (Auto) Not Reportable 04/23/21 05:15 [place] % (Auto) Not Reportable 04/23/21 05:15 Eos % (Auto) 0.0 % 04/22/21 05:55 Baso % (Auto) 0.6 % 04/22/21 05:55 Neut # (Auto) 9.74 10^3/uL (1.8-7.7) H 04/22/21 05:55 Lymph # (Auto) Not Reportable 04/23/21 05:15 [place] # (Auto) Not Reportable 04/23/21 05:15 Eos # (Auto) 0.0 10^3/uL (0.0-0.8) 04/22/21 05:55 Baso # (Auto) 0.1 10^3/uL (0.0-0.1) 04/22/21 05:55 Nucleated RBC % (auto) 0 % 04/22/21 05:55 Total Counted 100 (0-100) 04/23/21 05:15 Atypical Lymphs % 0.0 % (0-5) 04/23/21 05:15 Absolute Neutrophils 12.4 10^3/cmm (1.4-6.5) H 04/23/21 05:15 Segmented Neutrophils 83 % 04/23/21 05:15 Abs Segm Neuts (Man) 11.8 10/cmm (1.6-7.1) H 04/23/21 05:15 Band Neutrophils 4.0 % 04/23/21 05:15 Abs Band Neuts (Man) 0.6 10^3/cmm (0.0-1.2) 04/23/21 05:15 Absolute Lymphocytes 1.1 10^3/cmm (1.2-3.4) L 04/23/21 05:15 Lymphocytes (Manual) 8 % 04/23/21 05:15 Monocytes (Manual) 2.0 % 04/23/21 05:15 Absolute Monocytes 0.3 10^3/cmm (0.1-0.6) 04/23/21 05:15 Eosinophils (Manual) 0 % 04/23/21 05:15 Absolute Eosinophils 0.0 10^3/cmm (0.0-0.7) 04/23/21 05:15 Basophils (Manual) 0.0 % 04/23/21 05:15 Absolute Basophils 0.0 10^3/cmm (0.0-0.2) 04/23/21 05:15 Metamyelocytes 2.0 % 04/23/21 05:15 Myelocytes 1.0 % 04/23/21 05:15 Nucleated RBCs # 0.0 /100WBC 04/22/21 05:55 Platelet Estimate Increased (Normal) H 04/23/21 05:15 Giant Platelets Trace 04/23/21 05:15 Fibrinogen 486 mg/dL (174-498) 04/20/21 04:52 D-Dimer 1.16 ug/mIFEU (0-0.59) H 04/23/21 07:36 Specimen Type Arterial 04/21/21 03:44 Sample Site Radial, right 04/21/21 03:44 ABG pH 7.38 (7.35-7.45) 04/21/21 03:44 ABG pCO2 47.7 mmHg (35-45) H 04/21/21 03:44 ABG pO2 71.0 mmHg (80.0-100.0) L 04/21/21 03:44 ABG HCO3 28.1 mmol/L (22-26) H 04/21/21 03:44 ABG O2 Saturation 92.3 04/20/21 17:48 ABG Base Excess 2.1 mmol/L (-2.0-2.0) H 04/21/21 03:44 [place] Test Pos 04/21/21 03:44 A-a O2 Gradient 75.2 mmHg (5-10) H 04/20/21 17:48 Hematocrit 48.6 % (37-47) H 04/21/21 03:44 Hgb O2 Saturation 91.0 % (95-100) L 04/20/21 17:48 Carboxyhemoglobin 0.6 %THgb (0.4-20.1) 04/20/21 17:48 Methemoglobin 0.8 % (0.4-1.5) 04/20/21 17:48 Total Hemoglobin 12.9 g/dL (12-16) 04/20/21 17:48 Sodium 134.0 mmol/L (131-143) 04/20/21 17:48 Potassium 4.3 mmol/L (3.5-5.0) 04/20/21 17:48 Glucose 212.0 mg/dL (70-115) H 04/20/21 17:48 Ionized Calcium 1.1 mmol/L (1.1-1.4) 04/20/21 17:48 O2 Delivery Device Vent 04/21/21 03:44 O2 Liters/Min 60.0 % 04/19/21 13:41 FiO2 90.0 % 04/21/21 03:44 Tidal Volume 0.40 04/21/21 03:44 PEEP 12.0 cmH20 04/21/21 03:44 Battalion Fire Chief ID Rob 04/21/21 03:44 Sodium 134 mmol/L (136-145) L 04/23/21 05:15 Potassium 4.5 mmol/L (3.5-5.1) 04/23/21 05:15 Chloride 99 mmol/L (98-107) 04/23/21 05:15 Carbon Dioxide 28 mmol/L (22-29) 04/23/21 05:15 Anion Gap 11.5 (5-19) 04/23/21 05:15 BUN 32 mg/dL (8-23) H 04/23/21 05:15 Creatinine 0.8 mg/dL (0.5-0.9) 04/23/21 05:15 GFR Calculation 72.4 mL/min (90-130) L 04/23/21 05:15 Glucose 242 mg/dL (65-115) H 04/23/21 05:15 POC Glucose 229 mg/dL (70-110) H 04/23/21 07:36 Serum Osmolality 286 mOsm/kg (278-305) 04/19/21 06:52 Calculated Osmolality 293 mOsm/kg (285-295) 04/23/21 05:15 Lactic Acid 2.2 mmol/L (0.5-2.2) 04/17/21 15:42 Lactic Acid (Sepsis) 1.0 mmol/L (0.5-2.2) 04/17/21 19:15 Calcium 7.9 mg/dL (8.5-10.5) L 04/23/21 05:15 Phosphorus 3.7 mg/dL (2.5-4.5) 04/22/21 05:55 Magnesium 2.4 mg/dL (1.7-2.3) H 04/22/21 05:55 Ferritin 1150 ng/mL (15-150) H 04/21/21 04:37 Total Bilirubin 0.2 mg/dL (0.15-1.2) 04/23/21 05:15 AST 19 U/L (0-32) 04/23/21 05:15 ALT 18 U/L (0-33) 04/23/21 05:15 Alkaline Phosphatase 76 IU/L (35-105) 04/23/21 05:15 Lactate Dehydrogenase 807 U/L (135-214) H 04/21/21 04:37 Creatine Kinase 101 U/L (26-192) 04/17/21 15:42 Troponin T Gen 5 ng/L 7 ng/L (0-10) 04/19/21 06:52 Troponin T Baseline 8 ng/L (0-10) 04/21/21 11:45 Troponin T 120 Minute 7.68 ng/L (0-10) 04/21/21 14:27 Delta Troponin T -0.32 ABS# (0-10) L 04/21/21 14:27 Troponin T Hi Sens 6Hr 7.22 ng/L (0-10) 04/21/21 17:58 Troponin T Hi Sens 6Hr Delta -0.78 ng/L (0-12) L 04/21/21 17:58 C-Reactive Protein 99.7 mg/L (0.0-4.9) H 04/21/21 04:37 NT-Pro-B Natriuret Pep 344 pg/mL (0-125) H 04/18/21 09:30 Total Protein 6.3 g/dL (6.6-8.7) L 04/23/21 05:15 Albumin 2.9 g/dL (3.5-5.2) L 04/23/21 05:15 Globulin 3.4 g/dL (1.3-4.6) 04/23/21 05:15 Procalcitonin 0.05 ng/mL (0-0.5) 04/23/21 07:36 Urine Color Yellow (Yellow) 04/20/21 08:45 Urine Appearance Clear (CLEAR) 04/20/21 08:45 Urine pH 5 (5-7) 04/20/21 08:45 Ur Specific Creole 1.020 (1.005-1.030) 04/20/21 08:45 Urine Protein 3+ (Negative) H 04/20/21 08:45 Urine Glucose (UA) Trace (Normal) H 04/20/21 08:45 Urine Ketones 1+ (Negative) H 04/20/21 08:45 Urine Blood Neg (Negative) 04/20/21 08:45 Urine Nitrate Negative (Negative) 04/20/21 08:45 Urine Bilirubin Neg (Negative) 04/20/21 08:45 Urine Urobilinogen Norm mg/dL (Negative) 04/20/21 08:45 Ur Leukocyte Esterase Negative (Negative) 04/20/21 08:45 Urine Osmolality 808 mOsm/kg (50-1200) 04/20/21 08:45 Ur Random Sodium < 10 mmol/L 04/20/21 08:45 Influenza Type A Ag Negative (Negative) 04/17/21 23:22 Influenza Type B Ag Negative (Negative) 04/17/21 23:22 SARS-CoV-2 Ag (Rapid) Positive (Negative) H 04/17/21 23:50 Impressions Chest X-Ray 04/23/21 04:00 IMPRESSION: 1. Line and tubes as described. 2. Slight worsening of bilateral pneumonia. Micro: Microbiology 04/21/21 11:45 Blood Culture - Preliminary Blood NEGATIVE TO DATE 04/21/21 11:48 Blood Culture - Preliminary Blood NEGATIVE TO DATE A&P Assessment and plan (1) Acute respiratory failure with hypoxia: Status: Acute (2) Pneumonia due to COVID-19 virus: Status: Acute (3) Acute respiratory distress syndrome (ARDS) due to 2019 novel coronavirus: Status: Acute (4) Obesity: Status: Acute Qualifiers: Obesity type: unspecified obesity type Obesity classification: adult class 2 (BMI 35 - 39.9) Serious obesity comorbidity presence: unspecified whether serious comorbidity present Body mass index: BMI 39.0-39.9 Qualified Code(s): E66.9 - Obesity, unspecified; Z68.39 - Body mass index [BMI] 39.0-39.9, adult (5) Gout: Status: Acute Qualifiers: Gout site: unspecified site Gout etiology: unspecified cause Chronicity: unspecified Qualified Code(s): M10.9 - Gout, unspecified (6) Diabetes: Status: Acute Qualifiers: Diabetes mellitus type: type 2 Diabetes mellitus long term acute care registered nurse insulin use: unspecified detention insulin use status Diabetes mellitus complication status: with other specified complication Qualified Code(s): E11.69 - Type 2 diabetes mellitus with other specified complication (7) Hypertension: Status: Acute Qualifiers: Hypertension type: unspecified Qualified Code(s): I10 - Essential (primary) hypertension #Acute hypoxic respiratory failure secondary to ARDS due to COVID-19 pneumonia #Type 2 diabetes mellitus-on scale coverage #Hypertension-Home medication losartan #gout on allopurinol #Morbid obesity with BMI 39 -outside Covid test + 04/14/2021: Covid rapid antigen + 04/17/2021 -Multiple family members positive for Covid; recently lost her mother and sister due to Covid 19 pneumonia and another sister admitted to ICU for COVID-19 pneumonia -Chest x-ray 04/21/2021:1. Slight decrease in bilateral pulmonary opacities. -No fever spikes since admission, increasing white count, Low procalcitonin 0.12 -S/p intubated 04/20/2021;-Sedated with propofol 15, fentanyl 50, Versed 4 -Plan is to slowly taper Versed today -ABG 04/21/2021: 7.3 8/47/71/20 8/93% on FiO2 90% CMV -currently on CMV 350/18/12/75% saturating 94%, P plat 30 -Ordered ABG today -Chest x-ray today: Slightly worsening infiltrates -Ferritin 1250> 1612> 1150; CRP 53>97> 55 > 99; D-dimer 0.87>1.16; LDH 807 -Monitor inflammatory markers every 48 hours -Completed 5-day protocol remdesivir -on dexamethasone 6 mg IVP daily - S/P 1 dose of Tocilizumab 04/20/2021 -Completed Rocephin and azithromycin 5 days- -On DuoNeb every 4 hour scheduled inhalation and Pulmicort 0.5 twice daily inhalation -Encourage incentive spirometry and flutter valve and out of bed to chair once extubated -Elevated LFTs-likely secondary to COVID-19 pneumonia - improved -Sugars moderately controlled controlled-on Lantus 15 units at bedtime and scale coverage -increased Lantus to 18 units -High gastric residuals, hold feeding for now -Bowel regimen started on senna docusate at bedtime; lactulose daily, no BM yet -I/O/N+1.8 L since admission, last 24 hours patient is -200 mL; monitor urine output and if less than 50 mL/h-can give Lasix 20 mg as needed -monitor electrolytes and correct to keep K > 3.6 and Mg > 2 -Lovenox 40 daily for DVT prophylaxis -On duloxetine 30 mg p.o. twice daily for depression -Continue close clinical monitoring of clinical condition, respiratory status with saturations and hemodynamics -Full code -Prognosis-guarded Recommendations conveyed to hospitalist, RN, RT covering the patient Attestations Medical Necessity Statement*: Acute hypoxic respiratory failure secondary failure due to COVID-19 pneumonia, currently intubated and mechanically ventilated on 85% FiO2 and high PEEP, requires close ICU monitoring for respiratory status Time Spent in Patient Care: Greater than 35 minutes (>than 50% of time spent in counselling and/or direct pt care on unit) . Critical Care Time: The high probability of a clinically significant, sudden or life threatening deterioration of the patient's [respiratory endocrine] system(s) required my full and direct attention, intervention and personal management. The critical care time is as shown. 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 Patient Type Established History Comprehensive Exam Comprehensive Medical Decision Making High Complexity Diagnoses Acute respiratory failure with hypoxia J96.01 Pneumonia due to COVID-19 virus U07.1; J12.82 Acute respiratory distress syndrome (ARDS) due to 2019 novel coronavirus U07.1; J80 Obesity E66.9; Z68.39 Obesity type: unspecified obesity type Obesity classification: adult class 2 (BMI 35 - 39.9) Serious obesity comorbidity presence: unspecified whether serious comorbidity present Body mass index: BMI 39.0-39.9 Gout M10.9 Gout site: unspecified site Gout etiology: unspecified cause Chronicity: unspecified Diabetes E11.69 Diabetes mellitus type: type 2 Diabetes mellitus long term acute care registered nurse insulin use: unspecified detention insulin use status Diabetes mellitus complication status: with other specified complication Hypertension I10 Hypertension type: unspecified Time Spent (min) 60
[2021-04-23 10:55] LABS: ABG PCO2 54.8 mmHg (35-45); ABG PH Result 7.35 (7.35-7.45); Arterial Blood Gas Hematocrit 38.9 % (37-47); Base Excess ABG 3.5 mmol/L (-2.0-2.0); Blood Gas Allen Test Pos; Blood Gas Operator Identificat CAK; Blood Gas Sample Site Radial, left; Blood Gas Sample Type Arterial; Blood Gas Tidal Volume 0.35; HCO3 ABG 30.3 mmol/L (22-26); Oxygen Device VENT
[2021-04-23 11:34] LABS: Ferritin 1217 ng/mL (15-150)
[2021-04-23 12:26] LABS: Glucose Point of Care 197 mg/dL (70-110)
[2021-04-23 17:51] LABS: Glucose Point of Care 136 mg/dL (70-110)
--- NOTE | 2021-04-23 18:10 | PM.PN ---
Subjective Subjective: Interval history: Patient is intubated and sedated Net balance -225 mL Requested ABG laboratory work-up Noticed thrombocytosis No bowel movement yet Increased gastric residual, feeds on hold Vent settings PAP 28 Plateau pressure 30 tidal volume 350 PEEP 12 FiO2 75% Propofol at 15, Versed at 4 fentanyl at 50 She has stayed afebrile no overnight events Vitals/I&O/Wt Last Vital Signs Temp 98 F 04/23/21 11:00 Pulse 73 04/23/21 16:00 Resp 27 H 04/23/21 15:22 BP 132/73 04/23/21 16:00 Pulse Ox 94 04/23/21 16:00 04/23/21 04/23/21 04/23/21 06:59 14:59 22:59 Intake Total 171.359 / 874.711 282.549 / 282.549 Output Total 350 / 1100 Balance -178.641 / -225.289 282.549 / 282.549 Weight last 48 hrs Weight 101.35 kg Weight 103.963 kg Physical Exam Narrative: EXAM NARRATIVE: Patient intubated and sedated 3 sedative agents at the bedside Not requiring any vasopressors Vent settings mentioned above Tube feeds on hold, Blount catheter and NG tube to be monitored on daily basis S1, S2 no murmur appreciated Suntanned skin complexion Bilateral breath sounds with rhonchi at the bases Neuro exam limited Pinpoint pupils Skin without cellulitis Right IJ 04/20 Foley04/20 Urinary Catheter Management^: Blount: Cath Placed During This Visit: yes Reason for Continuing Indwelling Catheter: Accurate Measurement of Urinary Output in Critically Ill Patients Urinary Catheter Date of Insertion: 04/20/21 Urinary Catheter Time of Insertion: 08:45 Data : 04/23/21 05:15 04/23/21 05:15 A&P Assessment and plan (1) Acute respiratory distress syndrome (ARDS) due to 2019 novel coronavirus: Status: Acute (2) Acute respiratory failure with hypoxia: Status: Acute (3) Pneumonia due to COVID-19 virus: Status: Acute (4) Hypoxia: Status: Acute (5) Leukopenia: Status: Acute Qualifiers: Leukopenia type: unspecified Qualified Code(s): D72.819 - Decreased white blood cell count, unspecified (6) Gout: Status: Acute Qualifiers: Gout site: unspecified site Gout etiology: unspecified cause Chronicity: unspecified Qualified Code(s): M10.9 - Gout, unspecified (7) Obesity: Status: Acute Qualifiers: Obesity type: unspecified obesity type Obesity classification: adult class 2 (BMI 35 - 39.9) Serious obesity comorbidity presence: unspecified whether serious comorbidity present Body mass index: BMI 39.0-39.9 Qualified Code(s): E66.9 - Obesity, unspecified; Z68.39 - Body mass index [BMI] 39.0-39.9, adult (8) Diabetes: Status: Acute Qualifiers: Diabetes mellitus type: type 2 Diabetes mellitus exterminator helper insulin use: unspecified exterminator helper insulin use status Diabetes mellitus complication status: with other specified complication Qualified Code(s): E11.69 - Type 2 diabetes mellitus with other specified complication Additional A&P Information Respiratory failure due to COVID-19 pneumonia Acute hypoxic respiratory failure requiring mechanical ventilation 04/20 Intubated and sedated 3 sedative agents, propofol at 15, Versed at 4 fentanyl at 50, goal is to wean off sedatives especially Versed, Not requiring vasopressors Afebrile ABG requested this morning which revealed relative hypoxia on 75% FiO2, increase FiO2, Dr. Meadows to manage vent settings, there is slight worsening of hypercapnia however pH is compensated which is permissive hypercapnia in ARDS Inflammatory markers trending down Chest x-ray shows slight worsening of bilateral opacities Continue steroids zinc vitamin C, received interleukin-6 inhibitor on 04/20, finished ceftriaxone/azithromycin regimen Hyponatremia: Suntanned skin complexion, likely hypovolemic, she is also oliguric, would give her overdose of Lasix as Gout: Continue allopurinol Type 2 diabetes: Insulin sliding scale for management of hyperglycemia, increased Lantus to 18 units, consistently her blood sugar has been ranging above 200, judicious use of fluids DVT prophylaxis Full code Tube feeds on hold secondary to increased gastric residuals Attestations Medical Necessity Statement*: Continue ICU management for intubated patient Time Spent in Patient Care: 35mins Coding Level of Care Code Acute Cattle Manager for [facility] [place] Diagnoses Acute respiratory distress syndrome (ARDS) due to 2019 novel coronavirus U07.1; J80 Acute respiratory failure with hypoxia J96.01 Pneumonia due to COVID-19 virus U07.1; J12.82 Hypoxia R09.02 Leukopenia D72.819 Leukopenia type: unspecified Gout M10.9 Gout site: unspecified site Gout etiology: unspecified cause Chronicity: unspecified Obesity E66.9; Z68.39 Obesity type: unspecified obesity type Obesity classification: adult class 2 (BMI 35 - 39.9) Serious obesity comorbidity presence: unspecified whether serious comorbidity present Body mass index: BMI 39.0-39.9 Diabetes E11.69 Diabetes mellitus type: type 2 Diabetes mellitus prison insulin use: unspecified prison insulin use status Diabetes mellitus complication status: with other specified complication
[2021-04-23] MEDS: dexamethasone 4 mg/mL INJ 6 MG IVP (18:46)
[2021-04-23] MEDS: FUROsemide 10 mg/mL SDV 2mL 20 MG IVP (18:46)
[2021-04-23] MEDS: insulin glargine 100 units/1 mL 18 UNIT SUBCUT (20:50)
[2021-04-23] MEDS: enoxaparin 40 mg/0.4 mL Syringe SUBCUT (20:50)
[2021-04-23 21:02] LABS: Glucose Point of Care 157 mg/dL (70-110)
[2021-04-24] VITALS (46 sets, daily range): BP systolic 101–170; BP diastolic 56–106; PULSE 66–98; RESP 18–33; TEMP 36.7–37.1; O2SAT 78–95; BMI 37.8
[2021-04-24] MEDS: ipratropium-albuterol 3 mL Neb INHALATION ×7 (00:08→23:55)
[2021-04-24 03:55] LABS: ABG PCO2 59.4 mmHg (35-45); ABG PH Result 7.36 (7.35-7.45); Arterial Blood Gas Hematocrit 39.3 % (37-47); Base Excess ABG 6.6 mmol/L (-2.0-2.0); Blood Gas Allen Test Pos; Blood Gas Sample Site Radial, right; Blood Gas Sample Type Arterial; Blood Gas Tidal Volume 0.35; HCO3 ABG 33.8 mmol/L (22-26); Oxygen Device VENT
[2021-04-24] MEDS: aspirin 81 mg EC Tablet PO (05:20)
--- NOTE | 2021-04-24 06:19 | PC.NURSE ---
Shift Summary Patient had an uneventful night. Propofol is infusing at 15mcg/kg/min, Fentanyl is infusing at 50 mcg/hr, and Versed is infusing at 3mls/hr in the right IJ central line. Vent settings are as follows; FiO2-70%, VT-350, PEEP-12, and RR-18. Patient has no skin issues or wounds noted at this time. She opens her eyes to painful stimuli but does not follow commands. Gastric tube residual was 90 mls when last aspirated, due to increased gastric residual tube feedings were held. Blount catheter drained 1000mls of bright yellow urine all evening.
[2021-04-24] MEDS: propofol 1,000 MG/100 ML INJ 9.31 MG IV ×2 (06:22→15:40)
[2021-04-24] MEDS: budesonide 0.5 mg/2 mL Neb INHALATION ×2 (07:58→19:59)
[2021-04-24 09:18] LABS: Basophils % 0.2 %; Eosinophils % 0.1 %; Hematocrit 38.1 % (37.0-47.0); Hemoglobin 12.2 g/dL (11.5-15.3); Lymphocytes # 1.3 10^3/uL (0.8-4.8); Lymphocytes % 7.9 %; Mean Corpuscular Hemoglobin 31.4 pg (28.0-34.0); Mean Corpuscular Volume 97.9 fL (81-99); Mean Platelet Volume 9.4 fL (7.4-10.4); Monocytes # 0.6 10^3/uL (0.2-0.9); Monocytes % 3.7 %; Neutrophils # 12.34 10^3/uL (1.8-7.7); Nucleated Red Blood Cells % 0.1 %; Platelet Count 676 10^3/cmm (130-400); Red Blood Count 3.89 10^6/uL (4.1-5.3); White Blood Count 16.8 10^3/uL (4.0-10.0)
[2021-04-24] MEDS: ascorbic acid 500 mg Tablet PO ×2 (09:22→17:35)
[2021-04-24] MEDS: allopurinol 100 mg Tablet PO (09:22)
[2021-04-24] MEDS: zinc gluconate 50 mg Tablet PO (09:22)
[2021-04-24] MEDS: lactulose oral liq 20 gm/30 mL UDC PO ×2 (09:23→17:34)
[2021-04-24] MEDS: pantoprazole 40 mg SDV IVP (09:23)
[2021-04-24 09:36] LABS: Alanine Aminotransferase 32 U/L (0-33); Alkaline Phosphatase 72 IU/L (35-105); Aspartate Amino Transferase 38 U/L (0-32); Blood Urea Nitrogen 35 mg/dL (8-23); C Reactive Protein 11.4 mg/L (0.0-4.9); Calcium 7.8 mg/dL (8.5-10.5); Carbon Dioxide 29 mmol/L (22-29); Chloride 98 mmol/L (98-107); Globulin 3.3 g/dL (1.3-4.6); Glomerular Filtration Rate 84.5 mL/min (90-130); Glucose 192 mg/dL (65-115); Osmolality Calculated 293 mOsm/kg (285-295); Sodium 135 mmol/L (136-145); Total Bilirubin 0.3 mg/dL (0.15-1.2); Total Protein 6.3 g/dL (6.6-8.7)
[2021-04-24 09:55] LABS: Anion Gap 12.9 (5-19); Potassium 4.9 mmol/L (3.5-5.1)
--- NOTE | 2021-04-24 10:01 | PM.PN ---
Subjective Subjective: Interval history: - overall clinically unchanged - labs and imaging reviewed; todays still pending Medications: Reviewed: Yes Vitals/I&O/Wt Last Vital Signs Temp 98.5 F 04/24/21 08:00 Pulse 75 04/24/21 08:00 Resp 19 H 04/24/21 08:07 BP 117/79 04/24/21 08:00 Pulse Ox 94 04/24/21 08:07 04/23/21 04/24/21 04/24/21 22:59 06:59 14:59 Intake Total 98.221 / 380.770 202.893 / 583.663 Output Total 350 / 350 1000 / 1350 Balance -251.779 / 30.770 -797.107 / -766.337 Weight last 48 hrs Weight 220 lb 7 oz Weight 223 lb 7 oz Physical Exam Narrative: EXAM NARRATIVE: General: lying in bed, sedated and intubated. HEENT:NCAT, PERRLA, EOMI Neck: Supple Lungs: Mild diffuse crackles bilaterally, good air entry Heart: s1/s2, RRR Abd: soft, NT, ND, BS + Normoactive Extremities: No edema MILL BEAM FITTER: sedated and limited MILL BEAM FITTER exam possible. SKIN: no rash LDA: # CVC: Right IJ placed 04/20/2021 # Blount: 04/20/2021 Urinary Catheter Management^: Blount: Cath Placed During This Visit: yes Reason for Continuing Indwelling Catheter: Accurate Measurement of Urinary Output in Critically Ill Patients Urinary Catheter Date of Insertion: 04/20/21 Urinary Catheter Time of Insertion: 08:45 Data : 04/23/21 05:15 04/24/21 08:21 Other Labs: Laboratory Results WBC 14.2 10^3/uL (4.0-10.0) H 04/23/21 05:15 RBC 3.86 10^6/uL (4.1-5.3) L 04/23/21 05:15 Hgb 12.0 g/dL (11.5-15.3) 04/23/21 05:15 Hct 37.1 % (37.0-47.0) 04/23/21 05:15 MCV 96.1 fL (81-99) 04/23/21 05:15 MCH 31.1 pg (28.0-34.0) 04/23/21 05:15 MCHC 32.3 g/dL (30.0-36.0) 04/23/21 05:15 RDW 12.9 % (12.1-15.1) 04/23/21 05:15 Plt Count 605 10^3/cmm (130-400) H 04/23/21 05:15 MPV 9.5 fL (7.4-10.4) 04/23/21 05:15 Neut % (Auto) 80.1 % 04/22/21 05:55 Lymph % (Auto) Not Reportable 04/23/21 05:15 [place] % (Auto) Not Reportable 04/23/21 05:15 Eos % (Auto) 0.0 % 04/22/21 05:55 Baso % (Auto) 0.6 % 04/22/21 05:55 Neut # (Auto) 9.74 10^3/uL (1.8-7.7) H 04/22/21 05:55 Lymph # (Auto) Not Reportable 04/23/21 05:15 [place] # (Auto) Not Reportable 04/23/21 05:15 Eos # (Auto) 0.0 10^3/uL (0.0-0.8) 04/22/21 05:55 Baso # (Auto) 0.1 10^3/uL (0.0-0.1) 04/22/21 05:55 Nucleated RBC % (auto) 0 % 04/22/21 05:55 Total Counted 100 (0-100) 04/23/21 05:15 Atypical Lymphs % 0.0 % (0-5) 04/23/21 05:15 Absolute Neutrophils 12.4 10^3/cmm (1.4-6.5) H 04/23/21 05:15 Segmented Neutrophils 83 % 04/23/21 05:15 Abs Segm Neuts (Man) 11.8 10/cmm (1.6-7.1) H 04/23/21 05:15 Band Neutrophils 4.0 % 04/23/21 05:15 Abs Band Neuts (Man) 0.6 10^3/cmm (0.0-1.2) 04/23/21 05:15 Absolute Lymphocytes 1.1 10^3/cmm (1.2-3.4) L 04/23/21 05:15 Lymphocytes (Manual) 8 % 04/23/21 05:15 Monocytes (Manual) 2.0 % 04/23/21 05:15 Absolute Monocytes 0.3 10^3/cmm (0.1-0.6) 04/23/21 05:15 Eosinophils (Manual) 0 % 04/23/21 05:15 Absolute Eosinophils 0.0 10^3/cmm (0.0-0.7) 04/23/21 05:15 Basophils (Manual) 0.0 % 04/23/21 05:15 Absolute Basophils 0.0 10^3/cmm (0.0-0.2) 04/23/21 05:15 Metamyelocytes 2.0 % 04/23/21 05:15 Myelocytes 1.0 % 04/23/21 05:15 Nucleated RBCs # 0.0 /100WBC 04/22/21 05:55 Platelet Estimate Increased (Normal) H 04/23/21 05:15 Giant Platelets Trace 04/23/21 05:15 Fibrinogen 486 mg/dL (174-498) 04/20/21 04:52 D-Dimer 1.16 ug/mIFEU (0-0.59) H 04/23/21 07:36 Specimen Type Arterial 04/24/21 03:28 Sample Site Radial, right 04/24/21 03:28 ABG pH 7.36 (7.35-7.45) 04/24/21 03:28 ABG pCO2 59.4 mmHg (35-45) H 04/24/21 03:28 ABG pO2 62.0 mmHg (80.0-100.0) L 04/24/21 03:28 ABG HCO3 33.8 mmol/L (22-26) H 04/24/21 03:28 ABG O2 Saturation 92.3 04/20/21 17:48 ABG Base Excess 6.6 mmol/L (-2.0-2.0) H 04/24/21 03:28 [place] Test Pos 04/24/21 03:28 A-a O2 Gradient 75.2 mmHg (5-10) H 04/20/21 17:48 Hematocrit 39.3 % (37-47) 04/24/21 03:28 Hgb O2 Saturation 91.0 % (95-100) L 04/20/21 17:48 Carboxyhemoglobin 0.6 %THgb (0.4-20.1) 04/20/21 17:48 Methemoglobin 0.8 % (0.4-1.5) 04/20/21 17:48 Total Hemoglobin 12.9 g/dL (12-16) 04/20/21 17:48 Sodium 134.0 mmol/L (131-143) 04/20/21 17:48 Potassium 4.3 mmol/L (3.5-5.0) 04/20/21 17:48 Glucose 212.0 mg/dL (70-115) H 04/20/21 17:48 Ionized Calcium 1.1 mmol/L (1.1-1.4) 04/20/21 17:48 O2 Delivery Device Vent 04/24/21 03:28 O2 Liters/Min 60.0 % 04/19/21 13:41 Mechanical Rate 22.0 04/24/21 03:28 FiO2 70.0 % 04/24/21 03:28 Tidal Volume 0.35 04/24/21 03:28 PEEP 12.0 cmH20 04/24/21 03:28 Flap Curer ID Hinja 04/24/21 03:28 Sodium 135 mmol/L (136-145) L 04/24/21 08:21 Potassium 4.9 mmol/L (3.5-5.1) 04/24/21 08:21 Chloride 98 mmol/L (98-107) 04/24/21 08:21 Carbon Dioxide 29 mmol/L (22-29) 04/24/21 08:21 Anion Gap 12.9 (5-19) 04/24/21 08:21 BUN 35 mg/dL (8-23) H 04/24/21 08:21 Creatinine 0.7 mg/dL (0.5-0.9) 04/24/21 08:21 GFR Calculation 84.5 mL/min (90-130) L 04/24/21 08:21 Glucose 192 mg/dL (65-115) H 04/24/21 08:21 POC Glucose 157 mg/dL (70-110) H 04/23/21 20:55 Serum Osmolality 286 mOsm/kg (278-305) 04/19/21 06:52 Calculated Osmolality 293 mOsm/kg (285-295) 04/24/21 08:21 Lactic Acid 2.2 mmol/L (0.5-2.2) 04/17/21 15:42 Lactic Acid (Sepsis) 1.0 mmol/L (0.5-2.2) 04/17/21 19:15 Calcium 7.8 mg/dL (8.5-10.5) L 04/24/21 08:21 Phosphorus 3.7 mg/dL (2.5-4.5) 04/22/21 05:55 Magnesium 2.4 mg/dL (1.7-2.3) H 04/22/21 05:55 Ferritin 1217 ng/mL (15-150) H 04/23/21 07:36 Total Bilirubin 0.3 mg/dL (0.15-1.2) 04/24/21 08:21 AST 38 U/L (0-32) H 04/24/21 08:21 ALT 32 U/L (0-33) 04/24/21 08:21 Alkaline Phosphatase 72 IU/L (35-105) 04/24/21 08:21 Lactate Dehydrogenase 585 U/L (135-214) H 04/23/21 07:36 Creatine Kinase 101 U/L (26-192) 04/17/21 15:42 Troponin T Gen 5 ng/L 7 ng/L (0-10) 04/19/21 06:52 Troponin T Baseline 8 ng/L (0-10) 04/21/21 11:45 Troponin T 120 Minute 7.68 ng/L (0-10) 04/21/21 14:27 Delta Troponin T -0.32 ABS# (0-10) L 04/21/21 14:27 Troponin T Hi Sens 6Hr 7.22 ng/L (0-10) 04/21/21 17:58 Troponin T Hi Sens 6Hr Delta -0.78 ng/L (0-12) L 04/21/21 17:58 C-Reactive Protein 11.4 mg/L (0.0-4.9) H 04/24/21 08:21 NT-Pro-B Natriuret Pep 161 pg/mL (0-125) H 04/23/21 07:36 Total Protein 6.3 g/dL (6.6-8.7) L 04/24/21 08:21 Albumin 3.0 g/dL (3.5-5.2) L 04/24/21 08:21 Globulin 3.3 g/dL (1.3-4.6) 04/24/21 08:21 Procalcitonin 0.05 ng/mL (0-0.5) 04/23/21 07:36 Urine Color Yellow (Yellow) 04/20/21 08:45 Urine Appearance Clear (CLEAR) 04/20/21 08:45 Urine pH 5 (5-7) 04/20/21 08:45 Ur Specific [place] 1.020 (1.005-1.030) 04/20/21 08:45 Urine Protein 3+ (Negative) H 04/20/21 08:45 Urine Glucose (UA) Trace (Normal) H 04/20/21 08:45 Urine Ketones 1+ (Negative) H 04/20/21 08:45 Urine Blood Neg (Negative) 04/20/21 08:45 Urine Nitrate Negative (Negative) 04/20/21 08:45 Urine Bilirubin Neg (Negative) 04/20/21 08:45 Urine Urobilinogen Norm mg/dL (Negative) 04/20/21 08:45 Ur Leukocyte Esterase Negative (Negative) 04/20/21 08:45 Urine Osmolality 808 mOsm/kg (50-1200) 04/20/21 08:45 Ur Random Sodium < 10 mmol/L 04/20/21 08:45 Influenza Type A Ag Negative (Negative) 04/17/21 23:22 Influenza Type B Ag Negative (Negative) 04/17/21 23:22 SARS-CoV-2 Ag (Rapid) Positive (Negative) H 04/17/21 23:50 Impressions Chest X-Ray 04/23/21 04:00 IMPRESSION: 1. Line and tubes as described. 2. Slight worsening of bilateral pneumonia. A&P Assessment and plan (1) Acute respiratory failure with hypoxia: Status: Acute (2) Pneumonia due to COVID-19 virus: Status: Acute (3) Acute respiratory distress syndrome (ARDS) due to 2019 novel coronavirus: Status: Acute (4) Obesity: Status: Acute Qualifiers: Obesity type: unspecified obesity type Obesity classification: adult class 2 (BMI 35 - 39.9) Serious obesity comorbidity presence: unspecified whether serious comorbidity present Body mass index: BMI 39.0-39.9 Qualified Code(s): E66.9 - Obesity, unspecified; Z68.39 - Body mass index [BMI] 39.0-39.9, adult (5) Gout: Status: Acute Qualifiers: Gout site: unspecified site Gout etiology: unspecified cause Chronicity: unspecified Qualified Code(s): M10.9 - Gout, unspecified (6) Diabetes: Status: Acute Qualifiers: Diabetes mellitus type: type 2 Diabetes mellitus penitentiary insulin use: unspecified truck terminal manager insulin use status Diabetes mellitus complication status: with other specified complication Qualified Code(s): E11.69 - Type 2 diabetes mellitus with other specified complication (7) Hypertension: Status: Acute Qualifiers: Hypertension type: unspecified Qualified Code(s): I10 - Essential (primary) hypertension #Acute hypoxic respiratory failure secondary to ARDS due to COVID-19 pneumonia #Type 2 diabetes mellitus-on scale coverage #Hypertension-Home medication losartan #gout on allopurinol #Morbid obesity with BMI 39 -outside Covid test + 04/14/2021: Covid rapid antigen + 04/17/2021 -Multiple family members positive for Covid; recently lost her mother and sister due to Covid 19 pneumonia and another sister admitted to ICU for COVID-19 pneumonia -Chest x-ray 04/21/2021:1. Slight decrease in bilateral pulmonary opacities. -No fever spikes since admission, increasing white count, Low procalcitonin 0.12 -S/p intubated 04/20/2021;-Sedated with propofol 15, fentanyl 50, Versed 3 -Plan is to slowly taper Versed today; Rn was told If needed go up on Fentanyl and watch for bradycardia -ABG 7.36/59/62/33/92% on FiO2 70% CMV 350/18/10/70% -increased RR to 20 and increased Decreased Ti to 1.0 to target MV 7.0L, P plat 30 -Chest x-ray 04/13/21: Slightly worsening infiltrates -Ferritin 1250> 1612> 1150; CRP 53>97> 55 > 99>11; D-dimer 0.87>1.16; LDH 807>505 -Monitor inflammatory markers every 48 hours -Completed 5-day protocol remdesivir -on dexamethasone 6 mg IVP daily - S/P 1 dose of Tocilizumab 04/20/2021 -Completed Rocephin and azithromycin 5 days- -On DuoNeb every 4 hour scheduled inhalation and Pulmicort 0.5 twice daily inhalation -Encourage incentive spirometry and flutter valve and out of bed to chair once extubated -Elevated LFTs-likely secondary to COVID-19 pneumonia - improved -Sugars well controlled controlled-on Lantus 18 units at bedtime and scale coverage -High gastric residuals, hold feeding for now -Bowel regimen started on senna docusate at bedtime; lactulose daily, no BM yet - increased Lactulose to bid -I/O/N+800 ml since admission, last 24 hours patient is -760 mL; monitor urine output and if less than 50 mL/h-can give Lasix 20 mg as needed -monitor electrolytes and correct to keep K > 3.6 and Mg > 2 -Lovenox 40 daily for DVT prophylaxis -Continue close clinical monitoring of clinical condition, respiratory status with saturations and hemodynamics -Full code -Prognosis-guarded Recommendations conveyed to hospitalist, RN, RT covering the patient Attestations Medical Necessity Statement*: Acute hypoxic respiratory failure secondary failure due to COVID-19 pneumonia, currently intubated and mechanically ventilated on 70% FiO2 and high PEEP, requires close ICU monitoring for respiratory status Time Spent in Patient Care: Greater than 35 minutes (>than 50% of time spent in counselling and/or direct pt care on unit). Critical Care Time: The high probability of a clinically significant, sudden or life threatening deterioration of the patient's [respiratory endocrine] system(s) required my full and direct attention, intervention and personal management. The critical care time is as shown. This time is in addition to time spent performing any reported procedures but includes the following: [x] Data and vital sign review and interpretation [x] Patient assessment, examination and intervention [x] Documentation [x] Medication orders and management Critical Care Time (min): 60 Coding Level of Care Code Established Pt Acute Rubber Off for Chg Fwd Patient Type Established History Comprehensive Exam Comprehensive Medical Decision Making High Complexity Diagnoses Acute respiratory failure with hypoxia J96.01 Pneumonia due to COVID-19 virus U07.1; J12.82 Acute respiratory distress syndrome (ARDS) due to 2019 novel coronavirus U07.1; J80 Obesity E66.9; Z68.39 Obesity type: unspecified obesity type Obesity classification: adult class 2 (BMI 35 - 39.9) Serious obesity comorbidity presence: unspecified whether serious comorbidity present Body mass index: BMI 39.0-39.9 Gout M10.9 Gout site: unspecified site Gout etiology: unspecified cause Chronicity: unspecified Diabetes E11.69 Diabetes mellitus type: type 2 Diabetes mellitus truck terminal manager insulin use: unspecified penitentiary insulin use status Diabetes mellitus complication status: with other specified complication Hypertension I10 Hypertension type: unspecified Time Spent (min) 60
[2021-04-24 12:30] LABS: Glucose Point of Care 119 mg/dL (70-110)
[2021-04-24 15:15] LABS: Neutrophils % 88.1 %
[2021-04-24 15:16] LABS: Slide Review Slide Review Perform
--- NOTE | 2021-04-24 16:05 | PM.PN ---
Subjective Subjective: Interval history: Patient responded very well to Lasix dose yesterday, she is in negative balance today Evaluated her with retail analyst in the room Vent settings were changed to increased respiratory rate to 20 from 18 with decreasing inspiratory time to avoid auto PEEP, minute ventilation increased to 7 her plateau pressure less than 30 Hypercapnia however compensated, relative hypoxia Tube feeds still on hold due to increased gastric residuals No bowel movement yet we will give her enema today Plan to turn off Versed drip Vitals/I&O/Wt Last Vital Signs Temp 98.6 F 04/24/21 12:00 Pulse 77 04/24/21 15:53 Resp 23 H 04/24/21 15:48 BP 116/60 04/24/21 14:00 Pulse Ox 94 04/24/21 15:48 04/24/21 04/24/21 04/24/21 06:59 14:59 22:59 Intake Total 202.893 / 583.663 38.616 / 38.616 88.916 / 127.532 Output Total 1000 / 1350 75 / 75 Balance -797.107 / -766.337 -36.384 / -36.384 88.916 / 52.532 Weight last 48 hrs Weight 99.989 kg Weight 101.35 kg Physical Exam Narrative: EXAM NARRATIVE: Middle-age female intubated and sedated Pinpoint pupils Response to noxious stimuli with opening of her eyes Vent settings mentioned above Blount catheter draining clear yellow urine 200 mm ordered in 2 hours Abdomen with sluggish bowel sounds Distended no signs of peritonitis S1, S2 no signs of heart failure or murmur appreciated Lower extremity no edema Suntanned skin complexion Right IJ and Blount catheter placed 04/20 Urinary Catheter Management^: Blount: Cath Placed During This Visit: yes Reason for Continuing Indwelling Catheter: Accurate Measurement of Urinary Output in Critically Ill Patients Urinary Catheter Date of Insertion: 04/20/21 Urinary Catheter Time of Insertion: 08:45 Data : 04/24/21 08:21 04/24/21 08:21 A&P Assessment and plan (1) Acute respiratory distress syndrome (ARDS) due to 2019 novel coronavirus: Status: Acute (2) Acute respiratory failure with hypoxia: Status: Acute (3) Pneumonia due to COVID-19 virus: Status: Acute (4) Hypoxia: Status: Acute (5) Leukopenia: Status: Acute Qualifiers: Leukopenia type: unspecified Qualified Code(s): D72.819 - Decreased white blood cell count, unspecified (6) Gout: Status: Acute Qualifiers: Gout site: unspecified site Gout etiology: unspecified cause Chronicity: unspecified Qualified Code(s): M10.9 - Gout, unspecified (7) Obesity: Status: Acute Qualifiers: Obesity type: unspecified obesity type Obesity classification: adult class 2 (BMI 35 - 39.9) Serious obesity comorbidity presence: unspecified whether serious comorbidity present Body mass index: BMI 39.0-39.9 Qualified Code(s): E66.9 - Obesity, unspecified; Z68.39 - Body mass index [BMI] 39.0-39.9, adult (8) Diabetes: Status: Acute Qualifiers: Diabetes mellitus type: type 2 Diabetes mellitus fci insulin use: unspecified long term care administrator insulin use status Diabetes mellitus complication status: with other specified complication Qualified Code(s): E11.69 - Type 2 diabetes mellitus with other specified complication (9) Hypertension: Status: Acute Qualifiers: Hypertension type: unspecified Qualified Code(s): I10 - Essential (primary) hypertension Additional A&P Information Respiratory failure requiring mechanical ventilation for COVID-19 hypoxia Status post remdesivir Continue steroid regimen Status post liquid 6 inhibitor on 04/20 Finished ceftriaxone and azithromycin regimen She has stayed afebrile ABG showing hypercapnia which is compensated with relative hypoxia, today minute ventilation increased to 7 by changing respiratory rate from 18 to 20 Plan is to turn off Versed and monitor her response on to sedative agents propofol and fentanyl, and if needed go up on fentanyl No bowel movement yet, would use enema MO x1 Tube feeds on hold secondary to increased gastric residual, I would give her 1 dose of Reglan as well Currently in negative fluid balance, hold off on Lasix for now Will request inflammatory markers tomorrow Gout: Continue allopurinol Type 2 diabetes: Increase Lantus to 18 units yesterday, her blood sugar has been within 1 40-1 80 range Hyponatremia: Sodium 135 improvement with Lasix noted Full code DVT prophylaxis Lovenox Tube feeds on hold, Attestations Medical Necessity Statement*: Continue ICU management for COVID-19 respiratory failure Time Spent in Patient Care: 35mins Coding Level of Care Code Acute Wireless Cellular Technician for [facility] Fwd Diagnoses Acute respiratory distress syndrome (ARDS) due to 2019 novel coronavirus U07.1; J80 Acute respiratory failure with hypoxia J96.01 Pneumonia due to COVID-19 virus U07.1; J12.82 Hypoxia R09.02 Leukopenia D72.819 Leukopenia type: unspecified Gout M10.9 Gout site: unspecified site Gout etiology: unspecified cause Chronicity: unspecified Obesity E66.9; Z68.39 Obesity type: unspecified obesity type Obesity classification: adult class 2 (BMI 35 - 39.9) Serious obesity comorbidity presence: unspecified whether serious comorbidity present Body mass index: BMI 39.0-39.9 Diabetes E11.69 Diabetes mellitus type: type 2 Diabetes mellitus long term care administrator insulin use: unspecified fci insulin use status Diabetes mellitus complication status: with other specified complication Hypertension I10 Hypertension type: unspecified
[2021-04-24 16:27] LABS: Glucose Point of Care 194 mg/dL (70-110)
[2021-04-24] MEDS: metoclopramide 5 mg/mL SDV 2 mL 10 MG IVP (17:55)
[2021-04-24] MEDS: dexamethasone 4 mg/mL INJ 6 MG IVP (17:56)
--- NOTE | 2021-04-24 18:01 | PC.NURSE ---
pt recovered well with sats
--- NOTE | 2021-04-24 18:09 | PC.NURSE ---
1730 Soap suds enema given, retained 500ml. No impaction met or felt upon insertion of enema tube. She did desat intially down to 83% but recovered quickley up to 91
[2021-04-24 19:46] LABS: Glucose Point of Care 149 mg/dL (70-110)
[2021-04-24 20:45] LABS: Glucose Point of Care 179 mg/dL (70-110)
[2021-04-24] MEDS: insulin glargine 100 units/1 mL 18 UNIT SUBCUT (20:55)
[2021-04-24] MEDS: enoxaparin 40 mg/0.4 mL Syringe SUBCUT (20:55)
--- NOTE | 2021-04-24 22:05 | PC.NURSE ---
Addendum entered by Mara Ribera RN 04/24/21 22:51: Increased drip to 100 mcg/hr Original Note: Increase Fentanyl Drip Increased Fentanyl drip due to patient appearing anxious. Observed patient pulling at restraints and biting ET tube which decreased O2 sats.
[2021-04-24] MEDS: dexmedetomidine 400 MCG in sodium chloride 0.9% (100 ml) 100 ML IV (22:44)
--- NOTE | 2021-04-24 22:52 | PC.NURSE ---
Increase Fentanyl & Propofol Drip Dr. Melendez gave consent to increase Fentanyl drip to 150 mcg/hr and increase Propofol drip to 35 mcg/kg/min in response to O2 sats remaining low, patient bitting ET tube, and patient noted to be anxious.
[2021-04-24 23:59] LABS: Glucose Point of Care 190 mg/dL (70-110)
[2021-04-25] VITALS: BP 118/70; PULSE 106; TEMP 36.9; O2SAT 73
[2021-04-25] MEDS: propofol 1,000 MG/100 ML INJ 21.72 MG IV (00:03)
--- NOTE | 2021-04-25 00:04 | XRR_ITS ---
PROCEDURE INFORMATION: Exam: XR Chest Exam date and time: 04/25/2021 12:04 AM Age: 61 years old Clinical indication: Dyspnea; Additional info: Check for pneumothorax TECHNIQUE: Imaging protocol: XR of the chest. Views: 1 view. COMPARISON: CR (CHEST, ) 04/23/2021 5:35 AM FINDINGS: Tubes, catheters and devices: Right IJ catheter tip over the right atrium. Endotracheal tube tip over the distal trachea, 5 mm proximal to the smiley. Lungs: Slight interval worsening moderate to severe nonspecific bilateral pulmonary opacities most consistent with pneumonia and/or ARDS and/or pulmonary edema. Pleural spaces: No obvious pneumothorax. Heart/Mediastinum: Unremarkable. No cardiomegaly. Bones/joints: Unremarkable. XR/XR chest 1V portable [id number] IMPRESSION: 1. Right IJ catheter tip over the right atrium. 2. Endotracheal tube tip over the distal trachea, 5 mm proximal to the smiley. 3. Slight interval worsening moderate to severe nonspecific bilateral pulmonary opacities most consistent with pneumonia and/or ARDS and/or pulmonary edema. 4. No obvious pneumothorax.
[2021-04-25 00:17] LABS: ABG PH Result 7.29 (7.35-7.45); Arterial Blood Gas Hematocrit 39.1 % (37-47); Base Excess ABG 4.9 mmol/L (-2.0-2.0); Blood Gas Allen Test Pos; Blood Gas Sample Site Radial, right; Blood Gas Sample Type Arterial; Blood Gas Tidal Volume 0.35; HCO3 ABG 33.7 mmol/L (22-26); Oxygen Device VENT; PO2 ABG 50.6 mmHg (80.0-100.0)
[2021-04-25 00:19] LABS: ABG PCO2 70.6 mmHg (35-45)
[2021-04-25] MEDS: enoxaparin 100 mg/mL Syringe SUBCUT (00:27)
[2021-04-25] MEDS: FUROsemide 10 mg/mL SDV 2mL 20 MG IVP (00:27)
--- NOTE | 2021-04-25 00:58 | PC.NURSE ---
Low O2 Sats Called Dr. Melendez about low O2 sats in the 70's with an FiO2 of 100% and patient still breathing at a rate of 35. She gave verbal orders over the telephone to restart Versed drip per protocol, and hold the Precedex drip. Dr. Arceo then said she would come to unit to examine patient. This nurse put in the orders to restart Versed drip and paused the Precedex. Once on unit gave verbal orders to increase Versed drip to 4 ml/hr. She also gave verbal orders to give 20 mg Lasix IVP one time, increase Lovenox dose to 100 mg and give Q12 instead of previously scheduled Q24. Dr. Melendez ordered a chest x-ray as well.
[2021-04-25 01:00] VITALS: BP 90/63; PULSE 82; O2SAT 83
--- NOTE | 2021-04-25 01:00 | PC.NURSE ---
Discontinue OG Tube Dr. Melendez on unit, after examining the x-ray she gave verbal orders to suction contents out of OG tube and then pull tube out. This nurse suctioned contents and then pulled out OG tube, tip of tube intact.
[2021-04-25 01:01] VITALS: RESP 25; O2SAT 85
--- NOTE | 2021-04-25 01:42 | P.EN_ITS ---
Event Note Event Note: Patient started to develop worsening respiratory status at around 10:30 PM tonight. I was called by the RN to report that 02 saturation was dropping to the 70s in spite of being on 100% fi02. Initially patient was biting the tube, was agitated, versed infusion was resumed at 4mg/hr and fentanyl i ncreased to 150. 20mg IVP lasix was addtionally given and lovenox changed to full dose at 1mg/kg q12h. Stat CXR showed worsening B/L infiltrates. No pneumothorax. ABG 7.29/70.6/50.6/33.7 on 100% fi02, TV 350, PEEP 12. Dr. Dowling called overnight and ventilator settings adjusted per recommendations. Patient continued to saturate in the low 80s in spite of these measures. I called her MEG to update him about the above events and patient's clinical deterioration. Discussed with him that next steps from here on are to use paralytic agents and put patient on prone ventilation. Her stated that in keeping her known wishes, he does not wish to escalate any further from this point on and wishes us to keep her comfortable only. I discussed with him at length that comfort care measures would include removal of ventilator, no CPR in case of cardiac arrest and use of morphine, ativan and fentanyl drip to keep patient comfortable and avoid air hunger. I anticipate that she will not survive very much longer after removal of ventilator. He states that he understands. She had expressed her wishes and has advanced directives to not prolong life supporting measures. He does not want her to struggle anymore and wishes to withdraw all life supporting measures, letting nature take its course. In accordance with this discussion, we will proceed with terminal extubation. does not wish to be here for the process, wishes to remember the good memories. Patient transitioned to comfort care at 2 AM. Event Notes Attestations Time Spent in Patient Care: Greater than 35 minutes
--- NOTE | 2021-04-25 01:43 | PC.NURSE ---
Spoke with Family Dr. Melendez notified listed on file, Bridger Arellano, about patient condition. reports patient has advance directive papers that state she is a DNR & DNI, he gave verbal consent to change patient code status to comfort care instead of full code. Per orders, Versed and Fentanyl drips will continue infusing to keep patient comfortable and Propofol drip will be discontinued.
[2021-04-25 02:00] VITALS: BP 102/69; PULSE 97; O2SAT 82
[2021-04-25] MEDS: LORazepam 2 mg/mL INJ 1 mL IVP ×4 (02:36→03:37)
[2021-04-25] MEDS: morphine 4 mg/mL SDV 1 mL IVP ×4 (02:36→03:36)
--- NOTE | 2021-04-25 03:45 | PC.NURSE ---
Addendum entered by Loyda Carvajal RN 04/25/21 04:35: Verified absent heart sounds. Wasted fentanyl, precedex, and versed. Original Note: Patient TOD was 033 this morning, this nurse verified absent heart sounds with ridge mathews at bedside. Dr. Melendez notified about patient passing. Patient belongings are gathered and bagged up at bedside. Patients was notified about patient passing, and he verified [facility] as the home to use. While on the phone he gave verbal consent to send patient belongings with body to the home. Remaining Fentanyl amount of 84 mls, Precedex amount of 101 mls, and Versed amount of 86 mls wasted with second nurse.
--- NOTE | 2021-04-25 03:53 | PC.NURSE ---
MTS notified of pt expiration. Pt not candidate for MTS or Saving Site due to Covid dx. Pt requests [facility] for home.
--- NOTE | 2021-04-28 15:47 | P.DS_ITS ---
Discharge Providers Date of Admission: 04/17/21 19:55 Date of Discharge: April 28, 2021 Attending Provider at Admission: Go Mathews MD Attending Provider at Discharge: Cary Fabian MD Diagnoses at Discharge Discharge Diagnosis (1) Acute respiratory distress syndrome (ARDS) due to 2019 novel coronavirus: Status: Acute (2) Acute respiratory failure with hypoxia: Status: Acute (3) Pneumonia due to COVID-19 virus: Status: Acute (4) Hypoxia: Status: Acute (5) Leukopenia: Status: Acute Qualifiers: Leukopenia type: unspecified Qualified Code(s): D72.819 - Decreased white blood cell count, unspecified (6) Gout: Status: Acute Qualifiers: Gout site: unspecified site Gout etiology: unspecified cause Chronicity: unspecified Qualified Code(s): M10.9 - Gout, unspecified (7) Obesity: Status: Acute Qualifiers: Obesity type: unspecified obesity type Obesity classification: adult class 2 (BMI 35 - 39.9) Serious obesity comorbidity presence: unspecified whether serious comorbidity present Body mass index: BMI 39.0-39.9 Qualified Code(s): E66.9 - Obesity, unspecified; Z68.39 - Body mass index [BMI] 39.0-39.9, adult (8) Diabetes: Status: Acute Qualifiers: Diabetes mellitus type: type 2 Diabetes mellitus group home insulin use: unspecified group home insulin use status Diabetes mellitus complication status: with other specified complication Qualified Code(s): E11.69 - Type 2 diabetes mellitus with other specified complication (9) Hypertension: Status: Acute Qualifiers: Hypertension type: unspecified Qualified Code(s): I10 - Essential (primary) hypertension Reason for Visit Reason for Visit: COVID +; NAUSEA Hospital Course Hospital Course Patient was admitted for management of COVID-19 related hypoxic respiratory failure, her oxygen requirement was increasing and she worsened over the span of 2 days and was transitioned to ICU where she was intubated on 04/20 with propofol fentanyl and Versed, right IJ central line was placed by Dr. Smart, motor room controller Dr. Dowling was consulted to assist with vent settings, patient finished ceftriaxone and azithromycin antibiotic protocol along with 5 days of remdesivir she was kept on 6 mg of IV Decadron, she also received interleukin-6 inhibitor on 04/20. I took over her care on 04/23 and managed her vent settings with the help of motor room controller, on 04/25 at night her hypoxia worsened, overnight covering physician Dr. Melendez spoke with the family and decision was made to initiate comfort care at 2 AM of 04/25, she at 3:39 AM Physical Exam Narrative: EXAM NARRATIVE: Patient Urinary Catheter Management^: Blount: Cath Placed During This Visit: yes Reason for Continuing Indwelling Catheter: Accurate Measurement of Urinary Output in Critically Ill Patients Urinary Catheter Date of Insertion: 04/20/21 Urinary Catheter Time of Insertion: 08:45 Discharge Data Data Completed and Pending: Completed Studies During Hospitalization Category Date Time Status CXRP [XR chest 1V portable [id number]] S tat Exams 04/20/21 16:06 Completed XR chest 1V ana ble 14965 Routine Exams 04/19/21 12:32 Completed XR chest 1V ana ble [id number] Routine Exams 04/21/21 08:18 Completed XR chest 1V ana ble [id number] Routine Exams 04/23/21 04:00 Completed XR chest 1V ana ble [id number] Stat Exams 04/17/21 15:04 Completed XR chest 1V ana ble 15083 Stat Exams 04/20/21 08:20 Completed XR chest 1V ana ble [id number] Stat Exams 04/25/21 00:04 Completed Vitals: Last Vital Signs Temp 98.5 F 04/25/21 00:00 Pulse 97 04/25/21 02:00 Resp 25 H 04/25/21 01:01 BP 102/69 04/25/21 02:00 Pulse Ox 82 L 04/25/21 02:00 Discharge Plan Discharge Patient Disposition: Condition: Stable Prescriptions: No Action allopurinol 100 mg tablet 100 mg PO DAILY RF: 0 aspirin 81 mg tablet,delayed release (DR/EC) 81 mg PO QAM RF: 0 losartan 25 mg tablet 25 mg PO DAILY RF: 0 gabapentin 400 mg capsule 400 mg PO BID RF: 0 Tylenol Extra Strength 500 mg Tablet 1,000 mg PO Q4H PRN (Reason: Pain) RF: 0 pramipexole 0.25 mg tablet See Rx Instructions .ROUTE .COMPLEX RF: 0 metformin 500 mg tablet extended release 24 hr 500 mg PO DAILY RF: 0 duloxetine 30 mg capsule,delayed release(DR/EC) 30 mg PO BID RF: 0 Probable Cause of Probable cause of : Cardiac arrest Discharge Attestations Time Spent in Discharge Care*: less than 30 min Quality Metrics Clinical Quality Measures During this hospital stay, did patient experience: None Coding Level of Care Code Acute Chg FW DC note Diagnoses Acute respiratory distress syndrome (ARDS) due to 2019 novel coronavirus U07.1; J80 Acute respiratory failure with hypoxia J96.01 Pneumonia due to COVID-19 virus U07.1; J12.82 Hypoxia R09.02 Leukopenia D72.819 Leukopenia type: unspecified Gout M10.9 Gout site: unspecified site Gout etiology: unspecified cause Chronicity: unspecified Obesity E66.9; Z68.39 Obesity type: unspecified obesity type Obesity classification: adult class 2 (BMI 35 - 39.9) Serious obesity comorbidity presence: unspecified whether serious comorbidity present Body mass index: BMI 39.0-39.9 Diabetes E11.69 Diabetes mellitus type: type 2 Diabetes mellitus 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
== END 2021-04-25 05:40 | disposition expired | DRG 207 ==
LOC: ER 15:27 → CSU 18:06 → MEDSURG 04-18 15:01 → ICU 04-19 20:42
PROVIDERS: Internal Medicine; Student in an Organized Health Care Education/Training Program; Admitting Provider Internal Medicine; Emergency Provider Family Medicine; Visit Provider Internal Medicine
DX: U07.1 COVID-19 (principal); J12.82 Pneumonia due to coronavirus disease 2019; J15.9 Unspecified bacterial pneumonia; J80 Acute respiratory distress syndrome; E87.1 Hypo-osmolality and hyponatremia; I10 Essential (primary) hypertension; E11.9 Type 2 diabetes mellitus without complications; E66.01 Morbid (severe) obesity due to excess calories; Z68.39 Body mass index [BMI] 39.0-39.9, adult; G47.30 Sleep apnea, unspecified; M10.9 Gout, unspecified; Z66 Do not resuscitate; Z51.5 Encounter for palliative care
CPT/HCPCS: 36415; 36416; 36592; 36600; 51702; 71045; 80051; 80053; 81003; 82330; 82550; 82728; 82803; 82805; 82947; 82962; 83605; 83615; 83735; 83880; 83930; 83935; 84100; 84145; 84300; 84484; 85007; 85025; 85378; 85384; 86140; 87040; 87426; 87641; 87804; 93005; 94002; 94003; 94640; 94660; 94799; 96365; 96367; 96372; 96375; 99285; C9113; J0456; J0696; J1100; J1650; J1815 ×2; J1940; J2060; J2250; J2270; J2405; J2704; J2765; J3010; J3262; J3490; J3535; J7030; J7050; J7626